=== PATIENT | male | born 1950 | race Two or more races ===

== ENCOUNTER 2021-04-30 17:21 | Emergency (ER) | payer MEDICARE, MEDICAID, SELFPAY ==
--- NOTE | ~2021-04-30 | XR_ITS ---
EXAMINATION: XR SHOULDER, RIGHT CLINICAL INFORMATION: Right shoulder pain COMPARISON: None TECHNIQUE: Three views of the right shoulder. FINDINGS: No acute fracture or dislocation. No suspicious bone lesion. There is degenerative spurring and marrow changes along the greater tuberosity and a prominent subacromial spur. XR/XR shoulder RT min 2V IMPRESSION: Degenerative changes of the greater tuberosity and large subacromial spur. These findings can be associated with rotator cuff pathology for which evaluation with MRI could be considered. No acute osseous abnormality.
[2021-04-30 17:27] VITALS: BP 112/67; PULSE 90; RESP 18; TEMP 36.7; O2SAT 95; BMI 32.3
--- NOTE | 2021-04-30 18:39 | ED.EXTPRO ---
HPI - Extremity Problem General Chief complaint: Extremity Injury, Upper Stated complaint: arm pain Time Seen by Provider: 04/30/21 18:39 History of Present Illness HPI Narrative: Patient complains of right shoulder plain for 2 months with no injury radiating to fingertips worse with movement, no weakness no loss of sensation Related Data Home Medications Medication Instructions Recorded Confirmed Unobtainable 05/12/21 05/12/21 Allergies Allergy/AdvReac Type Severity Reaction Status Date / Time Iodinated Contrast Media Allergy Unknown UNKNOWN Verified 05/12/21 08:51 [IV Dye, Iodine Containing] Review of Systems Review of Systems: positive for right shoulder pain radiating to finger tips Negatives are no fever no chills no headache no neck pain no chest pain no shortness of breath no weakness no numbness no skin rash, no other joint pains Yes all other systems are reviewed and are negative [facility], LAT[facility] Past Medical History Source: nursing notes reviewed Medical History (Updated 05/12/21 @ 09:26 by Venita Kraft PA-C) Colostomy care Diverticulitis HTN (hypertension) Iliac artery aneurysm Pre-diabetes Surgical History History of colostomy reversal Physical Exam Vital Signs: Vital Signs: Last Vital Signs Temp 98.0 F 04/30/21 17:27 Pulse 90 04/30/21 17:27 Resp 18 04/30/21 17:27 BP 112/67 04/30/21 17:27 Pulse Ox 95 04/30/21 17:27 Body Mass Index 32.3 general appearance no acute distress Head is normocephalic atraumatic Neck is supple Chest is clear to auscultation no chest wall tenderness, no neck tenderness no back tenderness, back is full range of motion Right shoulder exam there is diffuse tenderness both anterior and lateral, range of motion is limited by discomfort there is no redness or warmth to the joint no obvious effusion 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 strength in the right hand is 5/5 and symmetrical with the left and sensation is intact and symmetrical, skin was normal Course Course Course Narrative: x-ray of the right shoulder showed some arthritic changes Patient is strongly advised to follow with orthopedics as steroid injection may be helpful and he may need further evaluation or imaging and patient is discharged Discharge Plan Discharge Clinical Impression: Arthralgia of right shoulder region Patient Disposition: Home, Self-Care Additional Instructions: X-ray showed some arthritic changes Follow with orthopedist for possible steroid shot Return any time any worse condition or any concerns Referrals: Eitan Ontiveros MD [Physician] - 2 days (Right shoulder arthralgia for many weeks) Interventions: ED Discharge Assessment Last Done: 04/30/21 19:34 Discharge Date/Time: 04/30/21 19:37
== END 2021-04-30 19:37 | disposition home or self-care (01) ==
PROVIDERS: Emergency Provider Emergency Medicine; PCP Internal Medicine
DX: M25.511 Pain in right shoulder (principal); I10 Essential (primary) hypertension
CPT/HCPCS: 73030; 99283

== ENCOUNTER → 2021-05-12 08:38 | Outpatient (BNVA) | payer MEDICARE, MEDICAID, SELFPAY | PROVIDERS: Visit Provider Physician Assistant | DX: M19.011 Primary osteoarthritis, right shoulder (principal); M67.919 Unspecified disorder of synovium and tendon, unspecified shoulder | CPT/HCPCS: 20610; 99202; J1020 ==

== ENCOUNTER 2021-07-05 10:00 | Outpatient (RCR) | payer MEDICARE, MEDICAID, SELFPAY ==
--- NOTE | 2021-06-30 16:34 | MHC.PT.EP ---
[facility] [place] Office [place] Office [place] Office [address]um [address] [phone] F: [phone] F: [phone] F: [phone] F: [phone] Physical Therapy Plan of Care Date of Evaluation: Date of Surgery: NA Diagnosis: OA R SHOULDER Assessment: Pt IS 71 YO RHD M REFERRED TO PT FROM ORTHO ([facility]) WITH R SHLDER OA (SUBACROMIAL SPUR ON XRAY). Pt WITH HX R BICEP TEAR. PRESENTS WITH POOR POSTURE, LIMITED SHLDER ROM AND STRENGTH ON R. SHOULD BENEFIT FROM PT TO ADDRESS THESE ISSUES Frequency and Duration: The patient will be seen 2X/WK X 6 WKS Short Term Goals: 1. 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 INCREASED R SHLDER FLEX TO 130, ABD TO 120, ER TO 75 3. DECREASED R SHLDER/UPPER ARM PAIN AT LEAST 50% WITH ADLS Treatment Plan: Modalities to reduce pain, spasms and effusion. Manual therapy to restore motion and function. Therapeutic exercise to improve strength and flexibility. Neuromuscular re-education for posture and balance. Therapeutic activities to return to functional activities of daily living. Electronically signed by: LAKESHA HORN PT Please sign and return to therapist. Thank you for your referral.
--- NOTE | 2021-09-15 10:21 | MHC.PT.DC ---
[facility] [place] Office [place] Office [place] Office [address] Lisa Gastelum [address] [phone] F: [phone] F: [phone] F: [phone] F: [phone] Physical Therapy Discharge Report Diagnosis: RIGHT SHOULDER OA Date of Surgery: NA Date of Evaluation: 06/30/21 Date of Discharge: 07/14/21 Treatments to Date: 2 Cancellations to Date: 1 No Shows to Date: 2 Discharge Status: Patient Elected to Stop Recommend MD Follow-up Discharge Summary: Pt SEEN FOR INIT EVAL AND 1 VISIT, THEN NO SHOW X 2 THEN CANCELLED ON 07/14/21 WITH SELF DC AND FEELING BETTER (PER TECHNOLOGY EDUCATION TEACHER NOTE). AT INIT EVAL PER ASSESSMENT:Pt IS 71 YO RHD M REFERRED TO PT FROM ORTHO ([facility]) WITH R SHLDER OA (SUBACROMIAL SPUR ON XRAY). Pt WITH HX R BICEP TEAR. PRESENTS WITH POOR POSTURE, LIMITED SHLDER ROM AND STRENGTH ON R. SHOULD BENEFIT FROM PT TO ADDRESS THESE ISSUES [ End ] Electronically signed by: LAKESHA HORN PT Please sign and return to therapist. Thank you for your referral.
== END 2021-09-15 10:22 | disposition home or self-care (01) ==
LOC: HO.PT 10:00
PROVIDERS: Visit Provider Physician Assistant
DX: M19.011 Primary osteoarthritis, right shoulder (principal)
CPT/HCPCS: 97110; 97162; 97530

== ENCOUNTER 2022-01-29 20:10 | Emergency (ER) | payer MEDICARE, MEDICAID, SELFPAY ==
--- NOTE | ~2022-01-29 | CT_ITS ---
EXAMINATION: CT ABDOMEN AND PELVIS WITHOUT CONTRAST CLINICAL INFORMATION: Right-sided abdominal pain and chills. COMPARISON: CT chest and abdomen 08/25/2018 TECHNIQUE: Multidetector volumetric imaging was performed from the superior aspect of the liver through the pubic symphysis. Sagittal and coronal reformatted images were obtained on the technologist's workstation. This CT examination was performed using dose optimization techniques as appropriate, variously including the following: *Automated exposure control *Adjustment of mA and/or kV according to patient size (this includes techniques or standardized protocols for targeted exams where dose is matched to indication/reason for exam; i.e. extremities or head) *Use of iterative reconstruction technique DLP: 568 mGy-cm FINDINGS: Visualized lung bases demonstrate minimal dependent atelectasis. The liver is normal in size and attenuation but demonstrates a subtle nodular contour, nonspecific. Gallstones are noted within a relatively decompressed gallbladder. The pancreas, spleen and adrenal glands are unremarkable. Symmetrically sized kidneys. Stable 3 mm nonobstructing calculus of the right kidney. No left-sided renal calculi. No hydronephrosis of either kidney. Normal caliber loops of small and large bowel. Anastomotic suture line within the distal sigmoid colon. Colonic diverticulosis without CT evidence to suggest active diverticulitis. Suspected surgical changes of the right ventral abdominal wall are again noted. A tiny recurrent Jauregui's hernia is noted along the lateral right abdominal wall which contains a knuckle of cecum. Normal caliber abdominal aorta which demonstrates mild to moderate atherosclerotic disease. Left external iliac stent noted but inaccurately evaluated given lack of IV contrast. No retroperitoneal lymphadenopathy. The bladder is relatively decompressed and therefore not accurately evaluated, however, no gross bladder abnormality is identified. No gross free pelvic fluid. No inguinal lymphadenopathy. Moderate to severe degenerative changes of the spine. CT/CT abdomen pelvis wo con IMPRESSION: -Colonic diverticulosis without CT evidence to suggest active diverticulitis. -Cholelithiasis. -Suspected postsurgical changes of the right ventral abdominal wall with unchanged tiny Jauregui's hernia. -Subtle nodular contour of the liver. Underlying liver disease is suspected. Correlation with liver enzymes recommended. -Stable 3 mm nonobstructing right renal calculus. Fleischner guidelines were followed.
[2022-01-29 20:20] VITALS: BP 138/85; PULSE 91; RESP 18; TEMP 37; O2SAT 100; BMI 32.3
[2022-01-29 21:02] VITALS: RESP 17
[2022-01-29 21:02] LABS: MANUAL DIFF FLAG NO
[2022-01-29] MEDS: ondansetron HCL 4 MG/2 ML VIAL IVPUSH (21:02)
[2022-01-29] MEDS: Morphine Sulfate 4 MG/ML CARTRIDGE IVPUSH (21:02)
[2022-01-29 21:05] LABS: Basophils Absolute Auto 0.1 X10*3/uL (0.0-0.2); Basophils Percent Auto 0.8 % (0-2); Eosinophils Absolute Auto 0.2 X10*3/uL (0.0-0.4); Eosinophils Percent Auto 3.6 % (0-4); Hematocrit 39.7 % (42.0-52.0); Hemoglobin 13.1 g/dl (14.0-18.0); Imm Gran Abs Auto 0.01 X10*3/uL (0.00-0.03); Imm Gran Pct Auto 0.2 % (0.0-0.4); Lymphocytes Absolute Auto 1.7 X10*3/uL (1.2-4.9); Mean Corpuscular Hemoglobin 31.3 pg (27.0-33.0); Mean Corpuscular Volume 94.7 fL (80.0-98.0); Mean Platelet Volume 10.5 fL (9.4-12.4); Monocytes Absolute Auto 0.6 X10*3/uL (0.1-1.2); Monocytes Percent Auto 9.7 % (2-11); Neutrophils Absolute Auto 3.6 x10*3/uL (2.0-8.3); Neutrophils Percent Auto 57.7 % (45-73); Red Blood Count 4.19 X10*6/uL (4.60-5.80); Red Cell Distribution Width 15.3 % (11.0-16.0); White Blood Count 6.2 X10*3/uL (4.8-10.8)
[2022-01-29 21:17] LABS: INTERNATIONAL NORM RATIO 1.2 (0.9-1.1); Prothrombin Time 13.4 SEC (9.9-13.0)
[2022-01-29 21:18] LABS: Alanine Aminotransferase 32 U/L (0-40); Albumin Level 3.7 g/dL (3.5-5.0); Alkaline Phosphatase 251 U/L (39-117); Anion Gap 15 (12-20); Aspartate Amino Transferase 78 U/L (5-37); Bilirubin Direct 0.3 mg/dL (0.0-0.5); Bilirubin Total 0.9 mg/dL (0.0-1.0); Blood Urea Nitrogen 12 mg/dL (9-16); Carbon Dioxide 22 mmol/L (22-29); Chloride 104 mmol/L (96-108); Creatinine Clr Calc Pharmacy 69.3; Estimated Glomerular Filt Rate > 60; Glucose Random 164 mg/dL (60-115); Magnesium 1.9 mg/dL (1.6-2.6); Potassium 4.5 mmol/L (3.3-5.1); Sodium 136 mmol/L (135-145)
[2022-01-29 21:24] LABS: COVID-19 Test Negative (Negative); IDNOW Serial# 55D5AD1C
[2022-01-29 21:28] LABS: Platelet Count 89 X10*3/uL (160-400)
--- NOTE | 2022-01-29 22:39 | ED_ITS ---
HPI - Abdominal Pain General Chief Complaint: Extremity Problem Stated Complaint: hip pain Time Seen by Provider: 01/29/22 20:17 Source: patient and family Mode of arrival: ambulatory Limitations: language barrier ( Panamanian-speaking) History of Present Illness HPI narrative: 71-year-old male with a significant past medical history of hypertension, hypercholesterolemia, PVD, GERD, history of diverticulitis requiring resection with temporary colostomy status post with ileostomy status post reversal of the ileostomy, choledocholithiasis, alcohol abuse who is a everyday smoker presenting to the ED with his daughter at bedside with complaints of sudden onset of right periumbilical abdominal pain that occurred prior to arrival. He denies any other symptoms related to this such as fevers, chills, dizziness, he adaches, neck pain/ stiffness, trouble swallowing or breathing, chest pain or shortness of breath, dyspnea on exertion, orthopnea, palpitations, paresthesias, radiation of the abdominal pain, back pain, nausea/ vomiting / diarrhea, constipation, black or bloody stools, weakness, focal weakness, dysuria, hematuria, abnormal penile discharge, recent travel or sick contacts or any other symptoms complaints or concerns at this time. MD elicited complaint: abdominal pain Pertinent past history: other ( see above) Onset (ago): hour(s) ( prior to arrival) Pain Consistency: constant Location: periumbilical ( right-sided) Severity: severe Pain scale (0-10): 10 Quality: aching Radiation: none Migration to: no migration Exacerbating factors: nothing Relieving factors: other ( palpation of the site) Associated symptoms: denies other symptoms Related Data Home Medications Medication Instructions Recorded Confirmed Unobtainable 05/12/21 05/12/21 Allergies Allergy/AdvReac Type Severity Reaction Status Date / Time Iodinated Contrast Media Allergy Unknown UNKNOWN Verified 05/12/21 08:51 [IV Dye, Iodine Containing] Review of Systems Review of Systems Constitutional : No Fever, No Chills, No Night Sweats, No Fatigue, No Malaise Cardiovascular : No Chest Pain, No SOB Respiratory : No Cough, No Sputum, No Wheezing, No Dyspnea Gastrointestinal : No Nausea, No Vomiting, No Diarrhea, + abdominal Pain, No Hematochezia, No Melena Genitourinary : No irregular bleeding, No Dysuria, No Urinary Frequency, No Hematuria,No Urinary Incontinence, No Urgency, No Flank Pain Musculoskeletal : No joint pain, No Myalgias, No Joint Swelling Skin : No Skin Lesions, No rash Neuro : No Weakness, No Numbness, No Paresthesias, No Loss of Consciousness, No Dizziness, No Headache Heme/Lymph: No Lymphadenopathy Endocrine : No Temperature Intolerance Yes all other systems are reviewed and are negative [facility] Past Medical History Attestation statement: The following information was validated with the patient. Medical History Colostomy care Diverticulitis HTN (hypertension) Iliac artery aneurysm Pre-diabetes Surgical History History of colostomy reversal Social History Social History Advance Directives: No Advance Directives Information Provided: No Physical Exam ED Vital Signs: Vital Signs - 24 hr 01/29/22 20:20 01/29/22 21:02 Temperature 98.6 F Pulse Rate 91 Respiratory Rate 18 17 Blood Pressure 138/85 Pulse Oximetry 100 BMI result Body Mass Index 32.3 Vital signs have been reviewed and all within normal limits Appearance: Alert. Oriented X3. No acute distress. Head: Normal external exam. Normocephalic. Eyes: PERRLA. EOMI. Conjunctiva and sclera normal. Eyelids normal. ENT: Pharynx normal. Uvula midline. Moist mucous membranes. No trismus noted. No drooling noted. No muffled voice noted. Neck: Normal inspection. Neck supple. FROM. No adenopathy. No meningeal signs. CVS: Normal heart rate and rhythm. Heart sound normal. No murmurs noted. Pulses normal throughout. Respiratory: No respiratory distress. Painless inspiration. Breath sounds normal. No wheezes/rales/rhonchi noted. Chest nontender. No accessory muscle usage noted or decreased air movement noted. Abdomen: Soft and moderate tenderness to palpation to the right melia umbilical area right near the patient's old suture lines /surgical lines lines.. Nondistended. No guarding. No rigidity. Bowel sounds normal in all 4 quadrants. No distention noted. No organomegaly noted. No visible injury noted. No rebou nd tenderness. Negative Rovsing sign. Negative obturator's sign. Negative psoas sign. Negative Aguilera sign. Back: No CVA tenderness. Full range of motion noted. Skin: Skin warm and dry. Normal skin color. Normal skin turgor. No rashes/lesions/lacerations noted. Extremities: Extremities exhibit normal range of motion. Extremities nontender. Neuro: Oriented X 3. No motor deficit. No sensory deficit. Reflexes normal. Normal steady gait. CN's II-XII intact bilaterally? Course Course Course Narrative: 71-year-old male with a significant past medical history of hypertension, hypercholesterolemia, PVD, GERD, history of diverticulitis requiring resection with temporary colostomy status post with ileostomy status post reversal of the ileostomy, choledocholithiasis, alcohol abuse who is a everyday smoker presenting to the ED with his daughter at bedside with complaints of sudden on set of right periumbilical abdominal pain that occurred prior to arrival. Labs obtained and patient with mild baseline anemia. Random glucose 164. AST 78. Alkaline phosphate 251. Total protein 9.0. Otherwise all other labs are within normal limits. Patient negative for COVID. CT scan abdomen and pelvis Without contrast due to the patient being severely allergic to IV contrast revealed chronic changes no acute processes such as colonic diverticulosis without evidence of acute diverticulitis / coli lithiasis /right ventricle abdominal wall hernia which was unchanged and other chronic changes. Therefore I discussed this with the patient his daughter at bedside and explained that m ost likely this is related to the patient's hernia we do not believe this is acute cholecystitis as his labs are pretty much within normal limits and he does not have an elevated white blood cell count. The pain does underline the patient's old suture / surgical sites therefore this is most likely related to the patient's hernia. This does not appear incarcerated. Patient reports he is on a pain contract therefore he does not need any additional pain medications. I instructed him to return if any new or worsening symptoms and to follow up with his oyster culturist. Patient and daughter at bedside understand and agree this plan. MDM - Abdominal Pain Medical Records Attestation: I reviewed the patient's medical records. Lab Data Attestation: I reviewed the patient's lab results. Result diagrams: 01/29/22 20:55 01/29/22 20:55 Labs: Lab Results 01/29/22 01/29/22 01/29/22 Range/Units 20:55 20:55 20:55 WBC 6.2 (4.8-10.8) X10*3/uL RBC 4.19 L (4.60-5.80) X10*6/uL Hgb 13.1 L (14.0-18.0) g/dl Hct 39.7 L (42.0-52.0) % MCV 94.7 (80.0-98.0) fL MCH 31.3 (27.0-33.0) pg MCHC 33.0 (31.0-36.0) g/dl RDW 15.3 (11.0-16.0) % Plt Count 89 L (160-400) X10*3/uL MPV 10.5 (9.4-12.4) fL Immature Gran % (Auto) 0.2 (0.0-0.4) % Neut % (Auto) 57.7 (45-73) % Lymph % (Auto) 28.0 (20-40) % Winston % (Auto) 9.7 (2-11) % Eos % (Auto) 3.6 (0-4) % Baso % (Auto) 0.8 (0-2) % Lymph # (Auto) 1.7 (1.2-4.9) X10*3/uL Winston # (Auto) 0.6 (0.1-1.2) X10*3/uL Eos # (Auto) 0.2 (0.0-0.4) X10*3/uL Baso # (Auto) 0.1 (0.0-0.2) X10*3/uL Abs Immat Gran (auto) 0.01 (0.00-0.03) X10*3/uL Absolute Neuts (auto) 3.6 (2.0-8.3) x10*3/uL Absolute Nucleated RBC 0.000 (0.0-0.012) X10*3/uL Nucleated RBC % (auto) 0.0 (0.0-0.2) /100WBC PT (9.9-13.0) SEC INR (0.9-1.1) Sodium 136 (135-145) mmol/L Potassium 4.5 (3.3-5.1) mmol/L Chloride 104 (96-108) mmol/L Carbon Dioxide 22 (22-29) mmol/L Anion Gap 15 (12-20) BUN 12 (9-16) mg/dL Creatinine 1.06 (0.5-1.4) mg/dL Estim Creat Clear Calc 69.3 Estimated GFR > 60 Random Glucose 164 H (60-115) mg/dL Calcium 10.0 (8.4-10.2) mg/dL Magnesium (1.6-2.6) mg/dL Total Bilirubin 0.9 (0.0-1.0) mg/dL Direct Bilirubin 0.3 (0.0-0.5) mg/dL AST 78 H (5-37) U/L ALT 32 (0-40) U/L Alkaline Phosphatase 251 H (39-117) U/L Total Protein 9.0 H (6.5-8.0) g/dL Albumin 3.7 (3.5-5.0) g/dL COVID-19 ([facility]) Negative (Negative) COVID-19 Clin Com See Note 01/29/22 01/29/22 Range/Units 20:55 20:55 WBC (4.8-10.8) X10*3/uL RBC (4.60-5.80) X10*6/uL Hgb (14.0-18.0) g/dl Hct (42.0-52.0) % MCV (80.0-98.0) fL MCH (27.0-33.0) pg MCHC (31.0-36.0) g/dl RDW (11.0-16.0) % Plt Count (160-400) X10*3/uL MPV (9.4-12.4) fL Immature Gran % (Auto) (0.0-0.4) % Neut % (Auto) (45-73) % Lymph % (Auto) (20-40) % Winston % (Auto) (2-11) % Eos % (Auto) (0-4) % Baso % (Auto) (0-2) % Lymph # (Auto) (1.2-4.9) X10*3/uL Winston # (Auto) (0.1-1.2) X10*3/uL Eos # (Auto) (0.0-0.4) X10*3/uL Baso # (Auto) (0.0-0.2) X10*3/uL Abs Immat Gran (auto) (0.00-0.03) X10*3/uL Absolute Neuts (auto) (2.0-8.3) x10*3/uL Absolute Nucleated RBC (0.0-0.012) X10*3/uL Nucleated RBC % (auto) (0.0-0.2) /100WBC PT 13.4 H (9.9-13.0) SEC INR 1.2 H (0.9-1.1) Sodium (135-145) mmol/L Potassium (3.3-5.1) mmol/L Chloride (96-108) mmol/L Carbon Dioxide (22-29) mmol/L Anion Gap (12-20) BUN (9-16) mg/dL Creatinine (0.5-1.4) mg/dL Estim Creat Clear Calc Estimated GFR Random Glucose (60-115) mg/dL Calcium (8.4-10.2) mg/dL Magnesium 1.9 (1.6-2.6) mg/dL Total Bilirubin (0.0-1.0) mg/dL Direct Bilirubin (0.0-0.5) mg/dL AST (5-37) U/L ALT (0-40) U/L Alkaline Phosphatase (39-117) U/L Total Protein (6.5-8.0) g/dL Albumin (3.5-5.0) g/dL COVID-19 ([facility]) (Negative) COVID-19 Clin Com Imaging Data CT scan abdomen pelvis without IV contrast: Attestation: I personally reviewed and interpreted this imaging study as follows: Radiologist's impression: FINDINGS: Visualized lung bases demonstrate minimal dependent atelectasis. The liver is normal in size and attenuation but demonstrates a subtle nodular contour, nonspecific. Gallstones are noted within a relatively decompressed gallbladder. The pancreas, spleen and adrenal glands are unremarkable. Symmetrically sized kidneys. Stable 3 mm nonobstructing calculus of the right kidney. No left-sided renal calculi. No hydronephrosis of either kidney. Normal caliber loops of small and large bowel. Anastomotic suture line within the distal sigmoid colon. Colonic diverticulosis without CT evidence to suggest active diverticulitis. Suspected surgical changes of the right ventral abdominal wall are again noted. A tiny recurrent Jauregui's? hernia is noted along the lateral right abdominal wall which contains a knuckle of cecum. Normal caliber abdominal aorta which demonstrates mild to moderate atherosclerotic disease. Left external iliac stent noted but inaccurately evaluated given lack of IV contrast. No retroperitoneal lymphadenopathy. The bladder is relatively decompressed and therefore not accurately evaluated, however, no gross bladder abnormality is identified. No gross free pelvic fluid. No inguinal lymphadenopathy. Moderate to severe degenerative changes of the spine. CT/CT abdomen pelvis wo con IMPRESSION: -Colonic diverticulosis without CT evidence to suggest active diverticulitis. -Cholelithiasis. -Suspected postsurgical changes of the right ventral abdominal wall with unchanged tiny Jauregui's hernia. -Subtle nodular contour of the liver. Underlying liver disease is suspected. Correlation with liver enzymes recommended. -Stable 3 mm nonobstructing right renal calculus. ? Fleischner guidelines were followed. Critical Care Time Critical Care Time Critical Care Time: Yes Total Critical Care Time: 60 Attestation: I personally attest to this time spent taking care of the patient Discharge Plan Discharge Clinical Impression: Abdominal hernia, Cholelithiasis, Elevated LFTs Patient Disposition: Home, Self-Care Instructions: Gallstones (ED), Ventral Hernia (ED) Referrals: Vince Cosme MD [Primary Care Provider] - 2 days Interventions: ED Discharge Assessment Last Done: 01/29/22 22:46 Discharge Date/Time: 01/29/22 22:47 Print Language: Panamanian
== END 2022-01-29 22:47 | disposition home or self-care (01) ==
PROVIDERS: Physician Assistant Medical; Emergency Provider Internal Medicine; PCP Internal Medicine
DX: K46.9 Unspecified abdominal hernia without obstruction or gangrene (principal); K80.20 Calculus of gallbladder without cholecystitis without obstruction; R79.89 Other specified abnormal findings of blood chemistry; I73.9 Peripheral vascular disease, unspecified; I10 Essential (primary) hypertension; R73.03 Prediabetes; Z20.822 Contact with and (suspected) exposure to COVID-19
CPT/HCPCS: 36415; 74176; 80053; 82248; 83735; 85025; 85610; 87635; 96374; 96375; 99284; 99291; J2270; J2405

== ENCOUNTER 2022-04-06 12:37 | Outpatient (REF) | payer MEDICARE, MEDICAID, SELFPAY ==
[2022-04-06 15:29] LABS: Lipase 45 U/L (8-78)
[2022-04-06 15:49] LABS: Ferritin 62 ng/mL (20-250)
[2022-04-06 16:22] LABS: Folate 10.5 ng/mL (> or = 4.0); Vitamin B12 175 pg/mL (200-900)
[2022-04-10 08:09] LABS: HBS Num1 211.82 mIU/mL (0-7.99); HBc Num1 7.79 S/CO (0.00-0.79); HIV AB/AG Nonreactive (Nonreactive); HIV Num 1 0.07 S/CO (0.00-0.99); Hepatitis B Surface Antigen Negative (Negative); ~HepC Num1 0.16 S/CO (0.00-0.79); ~Hepatitis B Surface Antibody REACTIVE (Nonreactive); ~Hepatitis C Antibody Nonreactive (Nonreactive)
[2022-04-10 10:37] LABS: HBc Num2 8.19 S/CO
[2022-04-10 10:38] LABS: HBc Num3 7.92 S/CO; Hepatitis B Core Antibody Reactive (Nonreactive)
[2022-04-10 11:47] LABS: Alpha Fetoprotein 6.1 ng/mL (<6.1)
[2022-04-10 21:23] LABS: Ceruloplasmin 26 mg/dL (18-36)
[2022-04-11 09:27] LABS: Hepatitis A Antibody IgM 0.15 Index (0-0.79); ~Hepatitis A Antibody IgM Nonreactive (Nonreactive)
[2022-04-11 12:52] LABS: Mitochondrial Antibodies NEGATIVE (NEGATIVE)
[2022-04-12 12:32] LABS: Vitamin D 25-OH, D2 <4 ng/mL; Vitamin D 25-OH, D3 21 ng/mL; Vitamin D 25-OH, Total 21 ng/mL (30-100)
[2022-04-12 14:36] LABS: Smooth Muscle Antibody 20 U (<20)
[2022-04-16 02:27] LABS: FIB-ALT 11 U/L (9-46); FIB-Alpha-2-Macroglobulin 317 mg/dL (106-279); FIB-Apolipoprotein A1 168 mg/dL (94-176); FIB-GGT 208 U/L (3-70); FIB-Haptoglobin 60 mg/dL (43-212); FIB-Total Bilirubin 0.9 mg/dL (0.2-1.2); Liver Fibrosis Score 0.84; Liver Fibrosis Stage F4; Nec Inflam Act Grade A0; Nec Inflam Act Score 0.07
== END 2022-04-06 12:38 | disposition home or self-care (01) ==
LOC: HO.LAB 12:37
PROVIDERS: PCP Internal Medicine; Referring Provider Internal Medicine; Visit Provider Nurse Practitioner Family
DX: K21.9 Gastro-esophageal reflux disease without esophagitis (principal); K58.1 Irritable bowel syndrome with constipation; K80.50 Calculus of bile duct without cholangitis or cholecystitis without obstruction; K46.9 Unspecified abdominal hernia without obstruction or gangrene; K59.04 Chronic idiopathic constipation; E78.5 Hyperlipidemia, unspecified; E55.9 Vitamin D deficiency, unspecified; I73.9 Peripheral vascular disease, unspecified; R94.5 Abnormal results of liver function studies; I10 Essential (primary) hypertension; R74.01 Elevation of levels of liver transaminase levels; R74.8 Abnormal levels of other serum enzymes; R10.9 Unspecified abdominal pain; R79.89 Other specified abnormal findings of blood chemistry; Z72.89 Other problems related to lifestyle; Z12.11 Encounter for screening for malignant neoplasm of colon; F17.210 Nicotine dependence, cigarettes, uncomplicated
CPT/HCPCS: 36415; 81596; 82105; 82306; 82390; 82607; 82728; 82746; 83690; 84443; 86015; 86140; 86255; 86256; 86704; 86706; 86709; 86803; 87340; 87389; 99202; 99212

== ENCOUNTER 2022-04-10 11:03 | Outpatient (REF) | payer MEDICARE, MEDICAID, SELFPAY ==
[2022-04-16 16:11] LABS: Pancreatic Elastase-1 >500 mcg/g
== END 2022-04-10 11:04 | disposition home or self-care (01) ==
LOC: HO.LNP 11:03
PROVIDERS: Visit Provider Nurse Practitioner Family
DX: R10.9 Unspecified abdominal pain (principal)
CPT/HCPCS: 82656

== ENCOUNTER → 2022-04-30 10:51 | Outpatient (BNVA) | payer MEDICARE, MEDICAID, SELFPAY | PROVIDERS: PCP Internal Medicine; Visit Provider Surgery | DX: R10.9 Unspecified abdominal pain (principal); K80.50 Calculus of bile duct without cholangitis or cholecystitis without obstruction; M19.90 Unspecified osteoarthritis, unspecified site; K21.9 Gastro-esophageal reflux disease without esophagitis; E78.5 Hyperlipidemia, unspecified; E11.9 Type 2 diabetes mellitus without complications; I73.9 Peripheral vascular disease, unspecified; I72.3 Aneurysm of iliac artery; I10 Essential (primary) hypertension; D69.6 Thrombocytopenia, unspecified; F10.10 Alcohol abuse, uncomplicated; F17.210 Nicotine dependence, cigarettes, uncomplicated | CPT/HCPCS: 99202 ==

== ENCOUNTER 2022-05-11 07:24 | Outpatient (REF) | payer MEDICARE, MEDICAID, SELFPAY ==
--- NOTE | ~2022-05-11 | US_ITS ---
EXAMINATION: US ABDOMEN COMPLETE CLINICAL INFORMATION: Unspecified abdominal pain. COMPARISON: CT abdomen and pelvis 01/29/2022. MRI abdomen 08/22/2018. Limited abdominal ultrasound 08/22/2018. Renal ultrasound 06/18/2009. TECHNIQUE: Real-time imaging of the abdominal viscera. Technically difficult study secondary to body habitus and respirations. FINDINGS: PANCREAS: Not well visualized due to bowel gas ABDOMINAL AORTA: Not well visualized due to bowel gas. INFERIOR VENA CAVA: Visualized portions are normal. LIVER: The liver appears cirrhotic with heterogeneous echotexture and irregular lobulated borders. No focal liver lesion or biliary duct dilatation. The main portal vein is patent with appropriate hepatopedal flow. GALLBLADDER: Gallbladder is not well seen. The gallbladder appears contracted gallbladder with gallstones. COMMON BILE DUCT: Normal in caliber measuring 0.2 cm in diameter. RIGHT KIDNEY: Normal. No hydronephrosis. No renal calculi or focal parenchymal lesions. The kidney measures 13.2 cm in maximum dimension. LEFT KIDNEY: Normal. No hydronephrosis. No renal calculi or focal parenchymal lesions. The kidney measures 12.8 cm in maximum dimension. SPLEEN: Spleen is slightly enlarged. The spleen measures 13.4 cm in maximum dimension. FREE FLUID: None. US/US abdomen complete IMPRESSION: Cirrhotic appearing liver. Splenomegaly. Contracted gallbladder with gallstones. Limited visualization of the pancreas and aorta.
== END 2022-05-11 07:25 | disposition home or self-care (01) ==
LOC: HO.US 07:24
PROVIDERS: Visit Provider Nurse Practitioner Family
DX: R10.9 Unspecified abdominal pain (principal); N20.0 Calculus of kidney
CPT/HCPCS: 76700; 99202

== ENCOUNTER 2022-05-18 12:17 | Outpatient (REF) | payer MEDICARE, MEDICAID, SELFPAY ==
[2022-05-21 21:51] LABS: Transglutaminase Ab IgG <1.0 U/mL; Transglutaminase IgA <1.0 U/mL
== END 2022-05-18 12:18 | disposition home or self-care (01) ==
LOC: HO.LAB 12:17
PROVIDERS: PCP Internal Medicine; Visit Provider Nurse Practitioner Family
DX: R10.9 Unspecified abdominal pain (principal); K80.50 Calculus of bile duct without cholangitis or cholecystitis without obstruction
CPT/HCPCS: 36415; 86364; 99212

== ENCOUNTER → 2022-05-28 09:21 | Outpatient (BNVA) | payer MEDICARE, MEDICAID, SELFPAY | PROVIDERS: PCP Internal Medicine; Visit Provider Surgery | DX: R10.9 Unspecified abdominal pain (principal); D69.6 Thrombocytopenia, unspecified; E11.9 Type 2 diabetes mellitus without complications; I73.9 Peripheral vascular disease, unspecified; F10.10 Alcohol abuse, uncomplicated; F17.210 Nicotine dependence, cigarettes, uncomplicated | CPT/HCPCS: 99212 ==

== ENCOUNTER → 2022-05-30 10:26 | Outpatient (REF) | payer MEDICARE, MEDICAID, SELFPAY ==
--- NOTE | ~2022-05-30 | NM_ITS ---
EXAMINATION: NUCLEAR MEDICINE HEPATOBILIARY SCAN WITHOUT PHARMACY. CLINICAL INFORMATION: Calculus of bile duct without cholangitis COMPARISON: None TECHNIQUE: Following intravenous administration of 5 mCi of mebrofenin, imaging over the right upper quadrant was obtained up to 2 hours. Delayed images were obtained up to 4 hours. FINDINGS: There is normal hepatic uptake with prompt visualization of common bile duct by 17 minutes and small bowel by 18 minutes. The gallbladder is not visualized up to 4 hours. NM/NM hepatobiliary wo pharm IMPRESSION: Obstructed cystic duct up to 4 hours. Patent CBD. Normal hepatic uptake without any focal defects.
== END ==
LOC: HO.NUCMED 10:26
PROVIDERS: PCP Internal Medicine; Visit Provider Nurse Practitioner Family
DX: K80.50 Calculus of bile duct without cholangitis or cholecystitis without obstruction (principal)
CPT/HCPCS: 78226; A9537

== ENCOUNTER 2022-08-08 07:23 | Outpatient (REF) | payer MEDICARE, MEDICAID, SELFPAY ==
--- NOTE | ~2022-08-08 | MR_ITS ---
EXAMINATION: MR LUMBAR SPINE WITHOUT CONTRAST CLINICAL INFORMATION: 72-year-old with low back pain. Multilevel degenerative changes on previous x-rays. COMPARISON: 06/01/2019 x-rays. TECHNIQUE: MRI of the lumbar spine was obtained using routine sequences without contrast. FINDINGS: Coronal Alignment: Normal. Sagittal Alignment: Trace retrolisthesis at L3-L4 stable in appearance. Trace retrolisthesis at L2-L3 noted on current study which is a new finding. Otherwise lumbosacral alignment is unremarkable. Lumbosacral Junction: Normal. 5 auq-ptq-xpzdqpm lumbar-type vertebral bodies. Vertebral Bodies: Vertebral body heights are well maintained stable in appearance. Disc Spaces and Endplates: Mqmtoedr-zj-idwvvi intervertebral disc space height loss asymmetric to the left at L3-L4 with disc desiccation, Schmorl's nodes and spondylosis. Xmmgmqmm-bo-ltsejq intervertebral disc space height loss at L4-L5 and L5-S1 with disc desiccation, Schmorl's nodes and spondylosis. Nyuk-rj-fdzwmfit intervertebral disc space height loss at L2-L3 with Schmorl's nodes, disc desiccation and spondylosis. Disc desiccation and spondylosis at L1-L2 with minimal disc space height loss. Mild disc space height loss with disc desiccation, Schmorl's nodes and spondylosis at T11-T12 and spondylosis at T12-L1. Spinal Canal: No abnormal developmental findings. Bone Marrow: Minimal fatty proliferation in the filum terminale is noted. Conus Medullaris: Terminates at T12. Morphology and signal is normal. Intradural Nerve Roots: Within normal limits. L5-S1: Concentric disc bulging is noted with bilateral paravertebral/posterolateral disc osteophyte complex with prominent, bulky paravertebral spondylosis, right more than left. No significant thecal sac compromise. Mild facet arthropathy noted without significant canal stenosis. Rwkkhmvv-yb-wiakgk bilateral neural foraminal stenosis is noted with disc osteophyte complex contacting the extra foraminal L5 nerve roots bilaterally. L4-L5: Diffuse disc bulging is noted with bilateral paravertebral/posterolateral disc osteophyte complex right more than left. Slight flattening of the ventral dural sac is noted asymmetric to the right with mild ligamentum flavum thickening and mild facet arthrosis without significant central canal stenosis. Mild left and moderate right subarticular recess stenosis is noted without definite neural impingement. There is moderate right-sided and zeae-if-yrtyytle left-sided neural foraminal stenosis with right lateral disc osteophyte complex encroaching on the extraforaminal right L4 nerve root. L3-L4: Slight retrolisthesis with diffuse disc bulging and mild flattening of the ventral dural sac is noted with mild facet arthrosis without significant central canal stenosis. Slight narrowing of the left subarticular zone is noted without neural impingement. There is moderate left and mild right-sided neural foraminal stenosis with posterolateral disc osteophyte complex on the left abutting the extraforaminal left L3 nerve root. L2-L3: Trace retrolisthesis with mild diffuse disc bulging and lffk-kz-iwjsbekk flattening of the ventral dural sac with mild ligamentum flavum thickening and facet arthropathy. Slight narrowing of the subarticular zones noted bilaterally without central canal stenosis. Moderate right and mild left-sided neural foraminal stenosis is noted with posterolateral disc osteophyte complex on the right abutting the extraforaminal right L2 nerve root. L1-L2: Small left paramedian disc protrusion noted with mild narrowing of the left subarticular recess with slight encroachment on the traversing left L2 nerve root. Mild left-sided facet arthropathy noted. No significant central canal or neural foraminal stenosis. Small central extruded disc herniation with slight cephalad migration at T12-L1. Paraspinal/Retroperitoneal: Moderate generalized diffuse posterior paraspinal and psoas muscle volume loss. Otherwise the paravertebral soft tissues are unremarkable. There are mild atheromatous changes of the abdominal aorta. MR/MR lumbar spine wo con IMPRESSION: 1. Multilevel DDD and spondylosis throughout the visualized thoracolumbar spine as discussed above, with multilevel disc bulging, disc osteophyte complexes and facet arthropathy with no significant central spinal canal stenosis. There are mild degrees of encroachment on the left subarticular zone at L1-L2, bilaterally at L2-L3 and on the left at L3-L4 as detailed above. 2. Multilevel bilateral facet arthrosis, with multilevel bilateral neural foraminal stenosis, most apparent bilaterally at L5-S1 as detailed by level above. 3. Small central extruded disc herniation with slight cephalad migration at T12-L1, small left subarticular disc herniation at L1-L2 and multilevel lateral/posterolateral disc osteophyte complexes.
== END 2022-08-08 07:24 | disposition home or self-care (01) ==
LOC: HO.MRI 07:23
PROVIDERS: PCP Internal Medicine; Visit Provider Internal Medicine
DX: M54.50 Low back pain, unspecified (principal)
CPT/HCPCS: 72148

== ENCOUNTER 2022-08-31 12:19 | Outpatient (REF) | payer MEDICARE, MEDICAID, SELFPAY ==
[2022-08-31 13:48] LABS: Alanine Aminotransferase 22 U/L (0-40); Albumin Level 3.8 g/dL (3.5-5.0); Alkaline Phosphatase 153 U/L (39-117); Aspartate Amino Transferase 38 U/L (5-37); Bilirubin Direct 0.5 mg/dL (0.0-0.5); Bilirubin Total 1.2 mg/dL (0.0-1.0); Total Protein 8.1 g/dL (6.5-8.0)
[2022-09-04 13:36] LABS: Hepatitis B Viral DNA Qn - cp <1.00 NOT DETECTED Log IU/mL (NOT DETECTED); Hepatitis B Viral DNA Qn-IU/mL <10 NOT DETECTED IU/mL (NOT DETECTED)
== END 2022-08-31 12:20 | disposition home or self-care (01) ==
LOC: HO.LAB 12:19
PROVIDERS: PCP Internal Medicine; Visit Provider Nurse Practitioner Family
DX: R10.9 Unspecified abdominal pain (principal); K74.60 Unspecified cirrhosis of liver
CPT/HCPCS: 36415; 80076; 87517; 99212

== ENCOUNTER 2022-10-25 10:52 | Outpatient (REF) | payer MEDICARE, MEDICAID, SELFPAY ==
--- NOTE | ~2022-10-25 | US_ITS ---
EXAMINATION: US RETROPERITONEAL LIMITED (RENAL ONLY) CLINICAL INFORMATION: Calculus of kidney. COMPARISON: Ultrasound abdomen complete 05/11/2020. CT abdomen and pelvis 01/30/2020. MRI abdomen 08/22/2018. Limited abdominal ultrasound 08/22/2018. TECHNIQUE: Real-time imaging of the kidneys. FINDINGS: RIGHT KIDNEY: 13.5 x 5.8 x 5.6 cm (SAG x AP x TRV). The kidney is normal in size, contour, and echogenicity. Renal cortical thickness is normal. No calculi or focal parenchymal lesions. No hydronephrosis. LEFT KIDNEY: 13.4 x 5.0 x 4.8 cm (SAG x AP x TRV). The kidney is normal in size, contour, and echogenicity. Renal cortical thickness is normal. No calculi or focal parenchymal lesions. No hydronephrosis. US/US renal BI IMPRESSION: Unremarkable renal ultrasound.
== END 2022-10-25 10:53 | disposition home or self-care (01) ==
LOC: HO.US 10:52
DX: N20.0 Calculus of kidney (principal)
CPT/HCPCS: 76775

== ENCOUNTER → 2022-10-26 10:38 | Outpatient (BNVA) | payer MEDICARE, MEDICAID, SELFPAY | PROVIDERS: PCP Internal Medicine; Referring Provider Internal Medicine; Visit Provider Nurse Practitioner Family | DX: K21.9 Gastro-esophageal reflux disease without esophagitis (principal); R10.9 Unspecified abdominal pain; K70.30 Alcoholic cirrhosis of liver without ascites | CPT/HCPCS: 99212 ==

== ENCOUNTER 2022-12-07 13:19 | Outpatient (REF) | payer MEDICARE, MEDICAID, SELFPAY ==
[2022-12-07 17:42] LABS: Urine Cytology See Pathology rpt
== END 2022-12-07 13:20 | disposition home or self-care (01) ==
LOC: HO.LAB 13:19
PROVIDERS: PCP Internal Medicine; Visit Provider Nurse Practitioner Family
DX: N20.0 Calculus of kidney (principal); R31.29 Other microscopic hematuria; Z79.899 Other long term (current) drug therapy
CPT/HCPCS: 88112; 99212

== ENCOUNTER 2022-12-19 09:39 | Emergency (ER) | payer MEDICARE, MEDICAID, SELFPAY ==
--- NOTE | ~2022-12-19 | XR_ITS ---
EXAMINATION: XR CHEST CLINICAL INFORMATION: Weakness. COMPARISON: 09/04/2018 chest radiographs. TECHNIQUE: Frontal view of the chest was obtained. FINDINGS: Interval decrease in linear markings in the right upper lobe. The lungs are otherwise clear. The heart and mediastinal structures are unremarkable. XR/XR chest 1V IMPRESSION: Minimal residual linear atelectasis/scarring in the right upper lobe. No acute cardiopulmonary process.
--- NOTE | ~2022-12-19 | CT_ITS ---
EXAMINATION: CT ABDOMEN AND PELVIS WITHOUT CONTRAST CLINICAL INFORMATION: Lower abdominal pain COMPARISON: 01/29/2022 TECHNIQUE: Multidetector volumetric imaging was performed from the superior aspect of the liver through the pubic symphysis. Sagittal and coronal reformatted images were obtained on the technologist's workstation. This CT examination was performed using dose optimization techniques as appropriate, variously including the following: *Automated exposure control *Adjustment of mA and/or kV according to patient size (this includes techniques or standardized protocols for targeted exams where dose is matched to indication/reason for exam; i.e. extremities or head) *Use of iterative reconstruction technique DLP: 578 mGy-cm FINDINGS: LUNG BASES: The visualized lung bases are unremarkable. LIVER, GALLBLADDER, AND BILIARY TREE: Subtle nodular contour to the liver may reflect underlying cirrhosis. No change. No focal masses. No intrahepatic biliary dilatation. Gallstones noted within a decompressed gallbladder no change. PANCREAS: Unremarkable. SPLEEN: Prominent spleen no change. ADRENAL GLANDS: Unremarkable. KIDNEYS AND URETERS: 3 mm tiny stone mid right kidney no obstruction no change. No perinephric collection or suspicious mass in either kidney. BLADDER: Unremarkable. GASTROINTESTINAL TRACT: Anastomotic sutures in the sigmoid. No proximal obstruction. Moderate stool burden throughout the colon. 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 No free air. There does appear to be inflammatory change adjacent to the cecum and transverse colon extending to the anterior abdominal wall. This is likely postsurgical and is unchanged. Midline surgical scar noted. There is sigmoid diverticular disease but no diverticulitis. No change. Other postsurgical changes related to the transverse colon are stable. ABDOMINAL WALL: Induration in the ventral subcutaneous fat of the midline surgical scar, along the distal rectus sheath extending down towards the dome of the bladder is unchanged. Drainable collections are not seen. LYMPH NODES: Normal. VASCULAR: Aorta is ectatic and atherosclerotic but nonaneurysmal. No adjacent fluid collections. Left external iliac stent again noted creating a fair amount of streak artifact. PELVIC VISCERA: Unremarkable. OSSEOUS STRUCTURES: Advanced degenerative changes again observed in the lumbar spine. No change. CT/CT abdomen pelvis wo IV con IMPRESSION: No hydronephrosis or acute inflammatory process. There is colonic diverticulosis with and without diverticulitis. 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
--- NOTE | ~2022-12-19 | CT_ITS ---
EXAMINATION: CT HEAD WITHOUT CONTRAST CLINICAL INFORMATION: Right-sided weakness. COMPARISON: Head CT scan dated 06/16/2009. TECHNIQUE: Contiguous axial imaging was performed from the skull base to vertex without intravenous administration of contrast. Coronal and sagittal reformatted images were obtained. This CT examination was performed using dose optimization techniques as appropriate, variously including the following: *Automated exposure control *Adjustment of mA and/or kV according to patient size (this includes techniques or standardized protocols for targeted exams where dose is matched to indication/reason for exam; i.e. extremities or head) *Use of iterative reconstruction technique DLP: 643.06 mGy-cm FINDINGS: There is mild widening of the cortical sulci and associated ventriculomegaly. The lateral ventricles are symmetrical. The third and fourth ventricles are in their normal midline position. The basilar and prepontine cisterns are unremarkable. There is no acute intra or extracerebral abnormality. There is no mass effect or midline shift. Sections through the bony calvarium are unremarkable. The orbits are intact. Mild mucosal thickening is seen in the visualized paranasal sinuses. Hypoaeration of the mastoid air cells. Sigmoid nasal septal deviation without significant change. CT/CT head/brain wo IV con IMPRESSION: No acute intracranial pathology. Mild inflammatory changes in the paranasal sinuses.
[2022-12-19 09:41] VITALS: BP 141/83; PULSE 100; RESP 18; TEMP 36.8; O2SAT 98; BMI 31.1
--- NOTE | 2022-12-19 09:59 | ECG_ITS ---
Test Reason : STROKE RULE OUT Blood Pressure : / mmHG Vent. Rate : 089 BPM Atrial Rate : 089 BPM P-R Int : 184 ms QRS Dur : 096 ms QT Int : 370 ms P-R-T Axes : 031 -19 037 degrees QTc Int : 450 ms Normal sinus rhythm Minimal voltage criteria for LVH, may be normal variant ( R in aVL ) Borderline ECG When compared with ECG of 19-AUG-2018 01:29, Premature ventricular complexes are no longer Present Referred By: Mora Velasco Electronically Signed By:SAM HILL MD
--- NOTE | 2022-12-19 10:03 | ED_ITS ---
HPI - Neuro Symptoms/Deficit General Chief Complaint: Neuro Symptoms/Deficit Stated Complaint: sent by [facility]. poss stroke Time Seen by Provider: 12/19/22 09:48 Source: patient Mode of arrival: ambulatory History of Present Illness HPI Narrative: 72-year-old male with a past medical history of HLD, HTN, osteoarthritis, thrombocytopenia, diabetes, diverticulitis s/p colostomy and reversal, sent to ED from urgent care to rule out CVA. Patient/family reports 1 month of increasing weakness, greater on right side, with intermittent confusion, slurred speech, and off balance gait. Patient takes baby ASA. Reports intermittent numbness to RLE. Also reports left flank pain, worse with urination. Denies known injury, trauma/fall, headache, CP/SOB, nausea/vomiting/diarrhea Onset (ago): month(s) Related Data Home Medications Medication Instructions Recorded Confirmed blood sugar diagnostic (FreeStyle #10 ea 04/06/22 12/09/22 Lite Strips) lancets 28 gauge (FreeStyle #100 ea 04/06/22 12/09/22 Lancets) metformin 500 mg tablet,extended 500 mg PO DAILY 04/06/22 12/19/22 release 24 hr rosuvastatin 40 mg tablet 40 mg PO DAILY 04/06/22 12/19/22 cyanocobalamin (vitamin B-12) 1,000 mcg PO DAILY 12/07/22 12/19/22 1,000 mcg tablet aspirin 81 mg tablet,delayed 81 mg PO DAILY 12/19/22 12/19/22 release celecoxib 200 mg capsule 1 cap PO DAILY 12/19/22 12/19/22 oxycodone-acetaminophen 5 mg-325 1 tab PO Q8H PRN severe pain 12/19/22 12/19/22 mg tablet pantoprazole 40 mg tablet,delayed 40 mg PO DAILY@0630 12/19/22 12/19/22 release Previous Rx's Medication Instructions Recorded cholecalciferol (vitamin D3) 50 50 mcg PO DAILY #90 caps 05/18/22 mcg (2,000 unit) capsule docusate sodium 100 mg capsule 100 mg PO BEDTIME #90 caps 08/31/22 polyethylene glycol 3350 17 gram 17 g PO DAILY #100 ea 08/31/22 oral powder packet (Miralax) Allergies Allergy/AdvReac Type Severity Reaction Status Date / Time Iodinated Contrast Media Allergy Unknown UNKNOWN Verified 12/09/22 20:29 [IV Dye, Iodine Containing] Review of Systems Review of Systems: Constitutional: No Fever, No Chills, No Fatigue, No Malaise ENT/Mouth: No Ear Pain, No Nasal Congestion, No sore throat, No Rhinorrhea, No Swallowing Difficulty Eyes: No Eye Pain, No Swelling, No Redness, No Vision Changes Cardiovascular: No Chest Pain, No SOB, No Edema, No Palpitations Respiratory: No Cough, No Sputum, No Dyspnea Gastrointestinal: No Nausea, No Vomiting, No Diarrhea, No Constipation, No Abdominal pain Genitourinary: No Dysuria, No Hematuria, No Urinary Incontinence/retention, No Flank Pain Musculoskeletal: No joint pain, No Myalgias, No Joint Swelling Skin: No Skin Lesions, No rash Neuro: + Weakness, + Numbness, No Paresthesias, No Loss of Consciousness, No Dizziness, No Headache, +confusion, +slurred speech Yes all other systems are reviewed and are negative Constitutional: Constitutional: Reports as per HPI Neurologic: Denies Sensory deficit (Neuro) [facility] Past Medical History Attestation statement: The following information was validated with the patient. Medical History Diverticulitis Iliac artery aneurysm Pre-diabetes Renal calculi Surgical History History of colostomy reversal Social History Social History Household Members: Spouse Alcohol intake: current Alcohol intake frequency: 3 or more drinks per day Alcohol type: beer and hard liquor Patient Tobacco Use Status: Current everyday Tobacco user Tobacco use type: Cigarette Cigarettes Per Day: 10 Smoked in Last 30 Days: Yes Advance Directives: No Physical Exam Vital Signs: Vital Signs: Last Vital Signs Temp 98.2 F 12/19/22 09:41 Pulse 86 12/19/22 14:12 Resp 16 12/19/22 14:12 BP 128/82 12/19/22 14:12 Pulse Ox 98 12/19/22 14:12 O2 Del Method 12/19/22 14:12 BMI result Body Mass Index 31.1 Const: General: cooperative, healthy appearing, no acute distress, alert and awake Orientation/consciousness: patient oriented x3 Limitations: no limitations HEENT: Head: Yes normal to inspection and Yes atraumatic Ears: hearing grossly normal bilaterally General nose exam: Normal external nose present Face and sinus: Yes normal facial exam Throat: Yes posterior oropharynx normal, Yes tonsils normal, Yes uvula midline and No peritonsillar mass Eyes: General: appearance normal, both eyes and all related structures Pupils: Equal, round and reactive pupils present EOM: EOMs intact bilaterally Neck: Neck: Yes normal visual inspection and Yes no meningeal signs Resp: Effort & Inspection: normal respiratory effort and no respiratory distress Auscultation: clear to auscultation bilaterally, no crackles, no rales, no rhonchi and no wheezes Cardio: Rate: regular rate Heart sounds: S1 normal heart sound present and S2 normal heart sound present GI: Inspection: Yes scar (Multiple old surgical scars) Palpation (GI): Soft to palpation, Tenderness to palpation present (GI) in the LLQ; with no rebound tenderness, no guarding and not rigid : General: Yes no CVA tenderness Back/Spine/Pelvis: Back: no CVA tenderness Skin: Rashes: no rashes Wounds: no wounds Neuro: General: patient oriented x3, tone normal, moves all extremities, no meningeal signs and CN's II-XI intact bilaterally Cranial nerves: Yes Equal, round and reactive pupils present Cognition (Neuro): normal cognition Gait exam (Neuro): Staggering gait present (Mildly unsteady, rightward) Motor exam (neuro): Abnormal motor strength present (4/5 strength ) right lower extremity Sensory Exam: No Sensory deficit (Neuro) Coordination: ekopuu-xt-hrml test normal Romberg Test: Positive Extrem: General: Yes normal to inspection Course Course Course Narrative: -1219--no leukocytosis. H&H stable. Bilirubin at baseline. AST at baseline. Troponin 9.9 will obtain 3 hour repeat. XR chest 1V IMPRESSION: Minimal residual linear atelectasis/scarring in the right upper lobe. No acute cardiopulmonary process. CT head/brain wo IV con IMPRESSION: No acute intracranial pathology. Mild inflammatory changes in the paranasal sinuses. CT abdomen pelvis wo IV con IMPRESSION: No hydronephrosis or acute inflammatory process. There is colonic diverticulosis with and without diverticulitis. 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 > plan to admit for further management -1233--per hospitalist team patient does not meet inpatient criteria.. Will obtain Brain MRI for further eval and then rediscuss -1345--received call from MRI, patient unable to obtain MRI today, can obtain tomorrow, will reach back out to hospitalist > hospital again denied admission. Will consult patient's PCP, will need MRI outpatient. Case discussed with Dr. Lin who also evaluated patient, is in agreement with plan the patient can follow-up outpatient this does not need to be emergent MRI. -1746--spoke with patient's PCP Dr. Christianson, he is uncomfortable patient is discharged recommended Neurology consult, reports he would be unable to get patient MRI for couple weeks. Will obtain Neurology consult -Spoke with Neurology, Dr. Rossi, reports no neurological emergency at this time, recommends outpatient neuro/PCP follow-up Results discussed with patient including worrisome signs and symptoms and strict return precautions, and needed close follow-up with PCP/neurology. This was discussed with patient and family at bedside. Discussed when to return to the emergency department. They verbalized understanding and feel safe for discharge at this time. Medical Decision Making Medical Decision Making MDM Narrative: 72-year-old male with a past medical history of HLD, HTN, osteoarthritis, thrombocytopenia, diabetes, diverticulitis s/p colostomy and reversal, sent to ED from urgent care for 1 month of increasing weakness, greater on right side, with intermittent confusion, slurred speech, and off balance gait. Also reports left flank pain, worse with urination. On exam vital signs stable, NAD, RLE weakness appreciated, + Romberg test, ambulating with unsteady gait leading to right. Abdomen soft with LLQ tenderness, no rebound or guarding, no CVA tenderness. Concern for subacute CVA, patient out of the window for tPA. Co ncern for diverticulitis vs renal stone/pyelo vs UTI. Lower suspicion for TIA, ICH, appendicitis Plan: EKG, labs, UA, CXR, head CT, CT AP, admission Differential Diagnosis Differential Diagnoses: The differential diagnosis associated with the presentation includes as above Admission/Observation Consideration of admission/observation: Escalation of care including admission/observation considered Lab Data [facility] Lab Attestation statement: I reviewed the patient's lab results. 12/19/22 10:17 12/19/22 10:17 Labs: Lab Results 12/19/22 12/19/22 12/19/22 Range/Units 10:17 10:17 10:17 WBC 6.7 (4.8-10.8) X10*3/uL RBC 4.01 L (4.60-5.80) X10*6/uL Hgb 12.3 L (14.0-18.0) g/dl Hct 37.0 L (42.0-52.0) % MCV 92.3 (80.0-98.0) fL MCH 30.7 (27.0-33.0) pg MCHC 33.2 (31.0-36.0) g/dl RDW 15.2 (11.0-16.0) % Plt Count 77 L (160-400) X10*3/uL MPV 11.0 (9.4-12.4) fL Immature Gran % (Auto) 0.3 (0.0-0.4) % Neut % (Auto) 67.9 (45-73) % Lymph % (Auto) 19.0 L (20-40) % Ro[place] % (Auto) 10.0 (2-11) % Eos % (Auto) 2.1 (0-4) % Baso % (Auto) 0.7 (0-2) % Lymph # (Auto) 1.3 (1.2-4.9) X10*3/uL Roane # (Auto) 0.7 (0.1-1.2) X10*3/uL Eos # (Auto) 0.1 (0.0-0.4) X10*3/uL Baso # (Auto) 0.1 (0.0-0.2) X10*3/uL Abs Immat Gran (auto) 0.02 (0.00-0.03) X10*3/uL Absolute Neuts (auto) 4.6 (2.0-8.3) x10*3/uL Absolute Nucleated RBC 0.000 (0.0-0.012) X10*3/uL Nucleated RBC % (auto) 0.0 (0.0-0.2) /100WBC PT (10.0-13.1) SEC INR (0.9-1.1) Sodium 137 (135-145) mmol/L Potassium 4.2 (3.3-5.1) mmol/L Chloride 106 (96-108) mmol/L Carbon Dioxide 18 L (22-29) mmol/L Anion Gap 17 (12-20) BUN 15 (9-16) mg/dL Creatinine 0.86 (0.5-1.4) mg/dL Estim Creat Clear Calc 82.8 Estimated GFR > 60 Random Glucose 194 H (60-115) mg/dL Calcium 9.7 (8.4-10.2) mg/dL Magnesium 1.6 (1.6-2.6) mg/dL Total Bilirubin 1.3 H (0.0-1.0) mg/dL Direct Bilirubin 0.4 (0.0-0.5) mg/dL AST 47 H (5-37) U/L ALT 30 (0-40) U/L Alkaline Phosphatase 171 H (39-117) U/L Troponin I High Sens 9.9 (<3.5-35.0) ng/L Total Protein 7.7 (6.5-8.0) g/dL Albumin 3.4 L (3.5-5.0) g/dL Urine Color Urine Appearance Urine pH (5.0-9.0) Ur Specific [place] (1.005-1.025) Urine Protein (Neg-Trace) mg/dL Urine Glucose (UA) (Negative) mg/dL Urine Ketones (Negative) mg/dL Urine Blood (Negative) Urine Nitrite (Negative) Ur Leukocyte Esterase (Negative) COVID-19 (ADEN) (Negative) COVID-19 Clin Com Influenza Type A (JEN) (Negative) Influenza Type B (JEN) (Negative) Influenza A & B Note 12/19/22 12/19/22 12/19/22 Range/Units 10:17 10:17 10:17 WBC (4.8-10.8) X10*3/uL RBC (4.60-5.80) X10*6/uL Hgb (14.0-18.0) g/dl Hct (42.0-52.0) % MCV (80.0-98.0) fL MCH (27.0-33.0) pg MCHC (31.0-36.0) g/dl RDW (11.0-16.0) % Plt Count (160-400) X10*3/uL MPV (9.4-12.4) fL Immature Gran % (Auto) (0.0-0.4) % Neut % (Auto) (45-73) % Lymph % (Auto) (20-40) % Roane % (Auto) (2-11) % Eos % (Auto) (0-4) % Baso % (Auto) (0-2) % Lymph # (Auto) (1.2-4.9) X10*3/uL [place]ane # (Auto) (0.1-1.2) X10*3/uL Eos # (Auto) (0.0-0.4) X10*3/uL Baso # (Auto) (0.0-0.2) X10*3/uL Abs Immat Gran (auto) (0.00-0.03) X10*3/uL Absolute Neuts (auto) (2.0-8.3) x10*3/uL Absolute Nucleated RBC (0.0-0.012) X10*3/uL Nucleated RBC % (auto) (0.0-0.2) /100WBC PT 15.5 H (10.0-13.1) SEC INR 1.3 H (0.9-1.1) Sodium (135-145) mmol/L Potassium (3.3-5.1) mmol/L Chloride (96-108) mmol/L Carbon Dioxide (22-29) mmol/L Anion Gap (12-20) BUN (9-16) mg/dL Creatinine (0.5-1.4) mg/dL Estim Creat Clear Calc Estimated GFR Random Glucose (60-115) mg/dL Calcium (8.4-10.2) mg/dL Magnesium (1.6-2.6) mg/dL Total Bilirubin (0.0-1.0) mg/dL Direct Bilirubin (0.0-0.5) mg/dL AST (5-37) U/L ALT (0-40) U/L Alkaline Phosphatase (39-117) U/L Troponin I High Sens (<3.5-35.0) ng/L Total Protein (6.5-8.0) g/dL Albumin (3.5-5.0) g/dL Urine Color Urine Appearance Urine pH (5.0-9.0) Ur Specific [place] (1.005-1.025) Urine Protein (Neg-Trace) mg/dL Urine Glucose (UA) (Negative) mg/dL Urine Ketones (Negative) mg/dL Urine Blood (Negative) Urine Nitrite (Negative) Ur Leukocyte Esterase (Negative) COVID-19 (ADEN) Negative (Negative) COVID-19 Clin Com See Note Influenza Type A (JEN) Negative (Negative) Influenza Type B (JEN) Negative (Negative) Influenza A & B Note See Note 12/19/22 Range/Units 11:58 WBC (4.8-10.8) X10*3/uL RBC (4.60-5.80) X10*6/uL Hgb (14.0-18.0) g/dl Hct (42.0-52.0) % MCV (80.0-98.0) fL MCH (27.0-33.0) pg MCHC (31.0-36.0) g/dl RDW (11.0-16.0) % Plt Count (160-400) X10*3/uL MPV (9.4-12.4) fL Immature Gran % (Auto) (0.0-0.4) % Neut % (Auto) (45-73) % Lymph % (Auto) (20-40) % [place] % (Auto) (2-11) % Eos % (Auto) (0-4) % Baso % (Auto) (0-2) % Lymph # (Auto) (1.2-4.9) X10*3/uL [place] # (Auto) (0.1-1.2) X10*3/uL Eos # (Auto) (0.0-0.4) X10*3/uL Baso # (Auto) (0.0-0.2) X10*3/uL Abs Immat Gran (auto) (0.00-0.03) X10*3/uL Absolute Neuts (auto) (2.0-8.3) x10*3/uL Absolute Nucleated RBC (0.0-0.012) X10*3/uL Nucleated RBC % (auto) (0.0-0.2) /100WBC PT (10.0-13.1) SEC INR (0.9-1.1) Sodium (135-145) mmol/L Potassium (3.3-5.1) mmol/L Chloride (96-108) mmol/L Carbon Dioxide (22-29) mmol/L Anion Gap (12-20) BUN (9-16) mg/dL Creatinine (0.5-1.4) mg/dL Estim Creat Clear Calc Estimated GFR Random Glucose (60-115) mg/dL Calcium (8.4-10.2) mg/dL Magnesium (1.6-2.6) mg/dL Total Bilirubin (0.0-1.0) mg/dL Direct Bilirubin (0.0-0.5) mg/dL AST (5-37) U/L ALT (0-40) U/L Alkaline Phosphatase (39-117) U/L Troponin I High Sens (<3.5-35.0) ng/L Total Protein (6.5-8.0) g/dL Albumin (3.5-5.0) g/dL Urine Color Yellow Urine Appearance Hazy Urine pH 6.5 (5.0-9.0) Ur Specific [place] 1.020 (1.005-1.025) Urine Protein Negative (Neg-Trace) mg/dL Urine Glucose (UA) Negative (Negative) mg/dL Urine Ketones Trace (Negative) mg/dL Urine Blood Negative (Negative) Urine Nitrite Negative (Negative) Ur Leukocyte Esterase Negative (Negative) COVID-19 (ADEN) (Negative) COVID-19 Clin Com Influenza Type A (JEN) (Negative) Influenza Type B (JEN) (Negative) Influenza A & B Note Independent Interpretation I performed an independent interpretation of an: EKG Interpretation: My interpretation EKG is normal sinus rhythm at a rate of 89. MN interval 184. QTC 450. No STEMI. Nonischemic Radiology Impression Discussion of test interpretation with radiology: I have reviewed the radiologist's reading. Independent Historian Daughter, granddaughter External Record Review External record reviewed: Office record, Outpatient record and Prior outpatient labs Chronic Conditions Patient?s care impacted by: Diabetes and Hypertension NIH Stroke Scale Internal: Initial- Upon Arrival Level of Consciousness: Alert Level of Consciousness Questions: Answers both questions correctly Level of Consciousness Commands: Performs both tasks correctly Best Gaze: Normal Visual: No visual loss Facial Palsy: Normal Motor Arm (Right): No drift Motor Arm (Left): No drift Motor Leg (Right): No drift Motor Leg (Left): No drift Limb Ataxia: Absent Sensory: Normal Best Language: No aphasia Dysarthia: Normal Extinction and Inattention: No abnormality Score: 0 Critical Care Time Critical Care Time Critical Care Time: Yes Total Critical Care Time: 50 Attestation: I have personally provided critical care time exclusive of time spent on separately billable procedures. Time includes review of lab data, radiology results, discussion with consultants, and monitoring for potential decompensation. Intervention performed as documented. Discharge Plan Discharge Clinical Impression: Weakness, Abdominal pain, Unsteady gait Patient Disposition: Home, Self-Care Instructions: Weakness (ED), Abdominal Pain (ED) Additional Instructions: Your blood work and CTs were reassuring. YOU NEED TO HAVE CLOSE FOLLOW-UP WITH HER DO[facility], CALL TODAY TO MAKE APPOINTMENTS. If symptoms persist or worsen, you fall, have headache, chest pain/shortness of breath, worsening weakness, numbness, you are unable to ambulate return to the emergency department Continue home medication Kalani an?lisis de bushra y tomograf?as computarizadas fueron tranquilizadores. NECESITA TENER UN SEGUIMIENTO CERCANO CON RUSS DOCTOR [facility], LLAME HOY PARA HACER CITAS. Si los s?ntomas persisten o empeoran, se , tiene dolor de yady, dolor de pecho/dificultad para respirar, empeoramiento de la debilidad, entumecimiento, no puede deambular, regrese al departamento de emergencias. Continuar la medicaci?n en casa Prescriptions: No Action oxycodone-acetaminophen 5-325 mg tablet 1 tab PO Q8H PRN (Reason: severe pain) pantoprazole 40 mg tablet,delayed release (DR/EC) 40 mg PO DAILY@0630 Rx Instructions: take one tablet half an hour before breakfast celecoxib 200 mg capsule 1 cap PO DAILY aspirin 81 mg Tablet,Delayed Release (Dr/Ec) 81 mg PO DAILY cholecalciferol (vitamin D3) 50 mcg (2,000 unit) capsule 50 mcg PO DAILY Qty: 90 3RF polyethylene glycol 3350 [Miralax] 17 gram powder in packet 17 g PO DAILY Qty: 100 3RF docusate sodium 100 mg capsule 100 mg PO BEDTIME Qty: 90 3RF metformin 500 mg tablet extended release 24 hr 500 mg PO DAILY (DME) FreeStyle Lite Strips Strip See Rx Instructions .ROUTE DAILY Qty: 10 Rx Instructions: As directed rosuvastatin 40 mg tablet 40 mg PO DAILY (DME) lancets [FreeStyle Lancets] 28 gauge misc See Rx Instructions topical DAILY Qty: 100 Rx Instructions: As directed cyanocobalamin (vitamin B-12) 1,000 mcg tablet 1,000 mcg PO DAILY Referrals: [facility] Neuro/Sleep [Provider Group] Vince Cosme MD [Primary Care Provider] - Interventions: ED Discharge Assessment Last Done: 12/19/22 15:20 Discharge Date/Time: 12/19/22 15:21 Print Language: Belarusian
[2022-12-19 10:25] LABS: Imm Gran Abs Auto 0.02 X10*3/uL (0.00-0.03); Imm Gran Pct Auto 0.3 % (0.0-0.4); Red Cell Distribution Width 15.2 % (11.0-16.0)
[2022-12-19 10:26] LABS: Basophils Absolute Auto 0.1 X10*3/uL (0.0-0.2); Basophils Percent Auto 0.7 % (0-2); Eosinophils Absolute Auto 0.1 X10*3/uL (0.0-0.4); Eosinophils Percent Auto 2.1 % (0-4); Hemoglobin 12.3 g/dl (14.0-18.0); Lymphocytes Absolute Auto 1.3 X10*3/uL (1.2-4.9); Mean Corpuscular HGB Conc 33.2 g/dl (31.0-36.0); Mean Corpuscular Hemoglobin 30.7 pg (27.0-33.0); Mean Corpuscular Volume 92.3 fL (80.0-98.0); Monocytes Absolute Auto 0.7 X10*3/uL (0.1-1.2); Neutrophils Absolute Auto 4.6 x10*3/uL (2.0-8.3); Neutrophils Percent Auto 67.9 % (45-73); Red Blood Count 4.01 X10*6/uL (4.60-5.80)
[2022-12-19 10:30] LABS: INTERNATIONAL NORM RATIO 1.3 (0.9-1.1); Prothrombin Time 15.5 SEC (10.0-13.1)
[2022-12-19 10:34] LABS: Platelet Count 77 X10*3/uL (160-400); White Blood Count 6.7 X10*3/uL (4.8-10.8)
[2022-12-19 10:47] LABS: Alanine Aminotransferase 30 U/L (0-40); Albumin Level 3.4 g/dL (3.5-5.0); Alkaline Phosphatase 171 U/L (39-117); Anion Gap 17 (12-20); Aspartate Amino Transferase 47 U/L (5-37); Bilirubin Direct 0.4 mg/dL (0.0-0.5); Bilirubin Total 1.3 mg/dL (0.0-1.0); Blood Urea Nitrogen 15 mg/dL (9-16); Calcium 9.7 mg/dL (8.4-10.2); Carbon Dioxide 18 mmol/L (22-29); Chloride 106 mmol/L (96-108); Creatinine Clr Calc Pharmacy 82.8; Estimated Glomerular Filt Rate > 60; Glucose Random 194 mg/dL (60-115); Magnesium 1.6 mg/dL (1.6-2.6); Potassium 4.2 mmol/L (3.3-5.1); Sodium 137 mmol/L (135-145); Total Protein 7.7 g/dL (6.5-8.0)
[2022-12-19 10:50] LABS: Troponin-I High Sensitivity 9.9 ng/L (<3.5-35.0)
[2022-12-19 10:52] LABS: COVID-19 Test Negative (Negative); IDNOW Serial# 9DB6401D; IDNOW Serial# BCCEAD1C; Influenza A Negative (Negative); Influenza B2 Negative (Negative)
--- NOTE | 2022-12-19 10:52 | PHA.MEDREC ---
Pharmacy Consult ? Medication Reconciliation Pharmacy has completed the medication reconciliation. spoke with patients family member
[2022-12-19 11:21] VITALS: BP 125/83; PULSE 86; RESP 16; O2SAT 98
[2022-12-19 12:07] LABS: Appearance Urine Hazy; Color Urine Yellow; Glucose Urine UA Negative (Negative); Leukocyte Esterase Urine Negative (Negative); Nitrite Urine Negative (Negative); PH 6.5 (5.0-9.0); Urine Blood Negative (Negative); Urine Ketones Trace mg/dL (Negative); Urine Protein Negative (Neg-Trace)
--- NOTE | 2022-12-19 14:06 | MHC.EDTECH ---
@[id number] I reached out to Vince Christianson via [employer] at the request of CORAL Velasco. Gave call back number. Am waiting for a call at this time.
[2022-12-19 14:12] VITALS: BP 128/82; PULSE 86; RESP 16; O2SAT 98
--- NOTE | 2022-12-19 14:22 | MHC.EDTECH ---
@[id number] called the office of Dr. Vince Christianson after not hearing back through [employer]. An individual answered the phone and asked for and name of the patient. They also asked for the name of the requesting provider, Mora Velasco. The individual stated they would reach out to Dr. Christianson and took a call back number.
--- NOTE | 2022-12-19 15:08 | PC.NURSE ---
report received from EMILIANO España Pt is wandering around room, no apparent distress at this time, awaiting follow up from provider regarding possibility for outpatient MRI. Pt daughter at bedside
== END 2022-12-19 15:21 | disposition home or self-care (01) ==
PROVIDERS: Physician Assistant; Emergency Provider Emergency Medicine; PCP Internal Medicine
DX: R53.1 Weakness (principal); R10.32 Left lower quadrant pain; R26.81 Unsteadiness on feet; R41.0 Disorientation, unspecified; R47.81 Slurred speech; Z20.822 Contact with and (suspected) exposure to COVID-19; E11.9 Type 2 diabetes mellitus without complications; I10 Essential (primary) hypertension; E78.5 Hyperlipidemia, unspecified; F17.210 Nicotine dependence, cigarettes, uncomplicated; D69.6 Thrombocytopenia, unspecified; Z79.82 Long term (current) use of aspirin; Z79.02 Long term (current) use of antithrombotics/antiplatelets; Z79.899 Other long term (current) drug therapy
CPT/HCPCS: 36415; 70450; 71045; 74176; 80048; 80076; 81003; 83735; 84484; 85025; 85610; 87502; 87635; 93005; 99284; 99285

== ENCOUNTER 2022-12-25 10:03 | Outpatient (REF) | payer MEDICARE, MEDICAID, SELFPAY ==
[2022-12-25 10:33] LABS: Ammonia 107 umol/L (13-55)
== END 2022-12-25 10:04 | disposition home or self-care (01) ==
LOC: HO.LAB 10:03
PROVIDERS: PCP Internal Medicine; Visit Provider Internal Medicine
DX: K70.30 Alcoholic cirrhosis of liver without ascites (principal)
CPT/HCPCS: 36415; 82140

== ENCOUNTER → 2023-01-14 10:46 | Outpatient (BNVA) | payer MEDICARE, MEDICAID, SELFPAY | PROVIDERS: PCP Internal Medicine; Visit Provider Nurse Practitioner Family | DX: K74.60 Unspecified cirrhosis of liver (principal); K21.9 Gastro-esophageal reflux disease without esophagitis; R10.9 Unspecified abdominal pain; R14.0 Abdominal distension (gaseous) | CPT/HCPCS: 99212 ==

== ENCOUNTER 2023-01-17 10:22 | Outpatient (REF) | payer MEDICARE, MEDICAID, SELFPAY ==
[2023-01-17 15:08] LABS: Alanine Aminotransferase 30 U/L (0-40); Albumin Level 3.3 g/dL (3.5-5.0); Alkaline Phosphatase 174 U/L (39-117); Aspartate Amino Transferase 43 U/L (5-37); Bilirubin Direct 0.5 mg/dL (0.0-0.5); Bilirubin Total 1.3 mg/dL (0.0-1.0); Total Protein 7.4 g/dL (6.5-8.0)
== END 2023-01-17 10:23 | disposition home or self-care (01) ==
LOC: HO.LAB 10:22
PROVIDERS: PCP Internal Medicine; Visit Provider Nurse Practitioner Family
DX: R10.9 Unspecified abdominal pain (principal)
CPT/HCPCS: 36415; 80076

== ENCOUNTER → 2023-02-19 10:40 | Outpatient (BNVA) | payer MEDICARE, MEDICAID, SELFPAY | PROVIDERS: PCP Internal Medicine; Referring Provider Internal Medicine; Visit Provider Nurse Practitioner Family | DX: K21.9 Gastro-esophageal reflux disease without esophagitis (principal); R10.12 Left upper quadrant pain; K58.2 Mixed irritable bowel syndrome; K70.30 Alcoholic cirrhosis of liver without ascites; Z79.899 Other long term (current) drug therapy | CPT/HCPCS: 99212 ==

== ENCOUNTER 2023-03-26 12:02 | Outpatient (REF) | payer MEDICARE, MEDICAID, SELFPAY | END 2023-03-26 12:03 | disposition home or self-care (01) | LOC: HO.XRAY 12:02 | PROVIDERS: PCP Internal Medicine; Visit Provider Internal Medicine | DX: Z13.89 Encounter for screening for other disorder (principal) ==

== ENCOUNTER 2023-03-27 09:19 | Outpatient (REF) | payer MEDICARE, MEDICAID, SELFPAY ==
--- NOTE | ~2023-03-27 | XR_ITS ---
EXAMINATION: XR RIBS, RIGHT CLINICAL INFORMATION: Right-sided chest pain COMPARISON: 12/19/2022 TECHNIQUE: Single view chest and 3 views of the right ribs were obtained. FINDINGS: The heart and pulmonary vessels appear normal without evidence of CHF. There is new, since December 2022, patchy consolidation present in the right upper lobe with some increased reticular nodular densities. Findings are suggestive of pneumonia. The ribs are unremarkable without fractures or bony destructive lesions. Mild degenerative changes are present in the spine. XR/XR ribs RT min 3V w CXR1V IMPRESSION: Right upper lobe pneumonia. Repeat imaging is recommended after treatment to ensure clearing
[2023-03-27 09:45] LABS: MANUAL DIFF FLAG NO
[2023-03-27 10:22] LABS: Basophils Absolute Auto 0.1 X10*3/uL (0.0-0.2); Basophils Percent Auto 0.6 % (0-2); Eosinophils Percent Auto 0.5 % (0-4); Hematocrit 33.6 % (42.0-52.0); Hemoglobin 11.1 g/dl (14.0-18.0); Imm Gran Abs Auto 0.07 X10*3/uL (0.00-0.03); Imm Gran Pct Auto 0.9 % (0.0-0.4); Lymphocytes Absolute Auto 0.9 X10*3/uL (1.2-4.9); Lymphocytes Percent Auto 11.1 % (20-40); Mean Corpuscular Hemoglobin 30.6 pg (27.0-33.0); Mean Corpuscular Volume 92.6 fL (80.0-98.0); Mean Platelet Volume 10.3 fL (9.4-12.4); Monocytes Absolute Auto 0.8 X10*3/uL (0.1-1.2); Monocytes Percent Auto 9.5 % (2-11); Neutrophils Absolute Auto 6.3 x10*3/uL (2.0-8.3); Neutrophils Percent Auto 77.4 % (45-73); Platelet Count 132 X10*3/uL (160-400); Red Blood Count 3.63 X10*6/uL (4.60-5.80); Red Cell Distribution Width 15.9 % (11.0-16.0); White Blood Count 8.2 X10*3/uL (4.8-10.8)
[2023-03-27 11:00] LABS: Erythrocyte Sedimentation Rate 91 MM/HR (0-15)
[2023-03-27 11:20] LABS: Alanine Aminotransferase 31 U/L (0-40); Albumin Level 2.9 g/dL (3.5-5.0); Alkaline Phosphatase 235 U/L (39-117); Aspartate Amino Transferase 53 U/L (5-37); Bilirubin Direct 0.7 mg/dL (0.0-0.5); Bilirubin Total 1.5 mg/dL (0.0-1.0); Total Protein 7.4 g/dL (6.5-8.0)
[2023-03-27 11:25] LABS: HIV AB/AG Nonreactive (Nonreactive); HIV Num 1 0.14 S/CO (0.00-0.99)
[2023-03-27 11:31] LABS: ~HepC Num1 0.22 S/CO (0.00-0.79); ~Hepatitis C Antibody Nonreactive (Nonreactive)
[2023-03-27 11:46] LABS: TSH reflex Free T4 0.63 uIU/mL (0.32-4.0)
[2023-03-31 13:49] LABS: Alpha Fetoprotein 3.9 ng/mL (<6.1)
== END 2023-03-27 09:20 | disposition home or self-care (01) ==
LOC: HO.XRAY 09:19
PROVIDERS: PCP Internal Medicine; Visit Provider Internal Medicine
DX: Z11.4 Encounter for screening for human immunodeficiency virus [HIV] (principal); R09.81 Nasal congestion; R63.4 Abnormal weight loss
CPT/HCPCS: 36415; 71101; 80076; 82105; 84443; 85025; 85652; 86803; 87389

== ENCOUNTER 2023-04-18 08:57 | Outpatient (REF) | payer MEDICARE, MEDICAID, SELFPAY ==
--- NOTE | ~2023-04-18 | CT_ITS ---
EXAMINATION: CT CHEST WITHOUT CONTRAST CLINICAL INFORMATION: Weight loss. Lung opacity. COMPARISON: Chest and right rib x-rays March 2023 TECHNIQUE: Multidetector volumetric CT imaging of the chest was done. Axial MIP volume rendering provided. Sagittal and coronal reformatted images were obtained. This CT examination was performed using dose optimization techniques as appropriate, variously including the following: *Automated exposure control *Adjustment of mA and/or kV according to patient size (this includes techniques or standardized protocols for targeted exams where dose is matched to indication/reason for exam; i.e. extremities or head) *Use of iterative reconstruction technique DLP: 162 mGy-cm FINDINGS: LUNGS: New volume loss to the right hemithorax. New complete right upper lung atelectasis. This has progressed from March 2023 chest and rib x-rays. Abrupt cut off of the right upper lobe bronchus. Underlying mass should be excluded and bronchoscopy recommended. Dependent atelectasis. MEDIASTINUM: Normal thyroid gland. Prominent upper normal-size mediastinal lymph nodes, largest in the right paratracheal region. Hilar adenopathy not evaluated without IV contrast. Slightly dilated ascending thoracic aorta measuring 4.3 cm. Normal heart size. Aortic valve calcification. No pericardial effusion. CORONARY ARTERY CALCIFICATION: Moderate to severe PLEURA: Mild pleural thickening and scattered areas of calcification in greatest at the lung bases. No pleural effusion. AXILLA: No chest wall mass or enlarged axillary lymph nodes. UPPER ABDOMEN: See abdominal and pelvic CT report from the same day. OSSEOUS STRUCTURES: Degenerative changes of the spine and shoulders. CT/CT chest wo IV con IMPRESSION: New complete right upper lobe atelectasis. The right upper lobe bronchus. Underlying central mass should be considered. Bronchoscopy recommended. Prominent severe coronary artery calcification. Mild scattered areas of pleural thickening and pleural calcification, greatest at the lung bases. Clinically correlate for history of asbestos exposure. Aortic valve calcification. Dilated ascending thoracic aorta measuring 4.3 cm. Prominent mediastinal lymph nodes. Fleischner guidelines were followed. Findings will be communicated by the [facility] work flow technical training instructor.
--- NOTE | ~2023-04-18 | CT_ITS ---
EXAMINATION: CT ABDOMEN WITHOUT CONTRAST CLINICAL INFORMATION: Abnormal weight loss COMPARISON: Previous abdominal ultrasound from earlier the same day and CT of the abdomen and pelvis December 2022 TECHNIQUE: Contiguous axial thin section helical images of the abdomen were performed without contrast. The data set was reformatted in the coronal and sagittal planes and reviewed on an independent workstation. This CT examination was performed using dose optimization techniques as appropriate, variously including the following: *Automated exposure control *Adjustment of mA and/or kV according to patient size (this includes techniques or standardized protocols for targeted exams where dose is matched to indication/reason for exam; i.e. extremities or head) *Use of iterative reconstruction technique DLP: 240 mGy-cm FINDINGS: LUNG BASES: See chest CT report from the same day LIVER, GALLBLADDER, BILIARY TREE: Multiple cirrhotic-appearing liver. No focal liver lesion. Prominent main portal vein measuring 15 mm. Contracted gallbladder and gallstones. No biliary duct dilatation. No ascites. PANCREAS: Normal SPLEEN: Upper normal-size spleen. ADRENAL GLANDS AND KIDNEYS: Small central right renal calcification question representing vascular calcifications as opposed to stones. Kidneys are otherwise normal. BOWEL LOOPS: Question small esophageal hernia. Small paraesophageal lymph nodes. Question old or wall thickening of the distal stomach. Mild diverticulosis and constipation. Postsurgical changes to the bowel in the right lower quadrant, question small bowel. Postsurgical changes to the abdominal wall and atrophy of the rectus muscles. LYMPH NODES: Small lymph nodes adjacent to the distal thoracic esophagus in the periportal and gastrohepatic regions. Small retroperitoneal lymph nodes. No enlarged lymph nodes. No ascites. VASCULAR: Atherosclerotic disease. No aneurysm. BONES: Degenerative changes of the spine. CT/CT abdomen wo IV con IMPRESSION: Cirrhotic-appearing liver. Upper normal-size spleen. Gallstones. Mild constipation and diverticulosis. Question fold or wall thickening of the distal stomach. Severe atherosclerotic disease. Fleischner guidelines were followed.
--- NOTE | ~2023-04-18 | US_ITS ---
EXAMINATION: US COMPLETE ABDOMEN WITH LIVER ELASTOGRAPHY CLINICAL INFORMATION: Abnormal blood chemistry. COMPARISON: 12/19/2022 CT scan TECHNIQUE: Real-time imaging of the abdominal viscera. Noninvasive ultrasound liver fibrosis assessment is performed using [employer] ElastPQ point quantification shear wave elastography (2D-SWE) with a C5-2 MHz transducer. Multiple elastography samples are obtained. FINDINGS: PANCREAS: Normal. The visualized pancreatic head and body are normal in appearance. The remainder of the pancreas is obscured from visualization by the overlying bowel gas. ABDOMINAL AORTA: The proximal and middle aortic segments are normal in caliber. The distal abdominal aorta is not visualized due to being obscured by bowel gas. INFERIOR VENA CAVA: Visualized portions are normal. LIVER: There is a coarsened echotexture present. No intrahepatic bile duct dilatation is identified. No focal abnormal mass is seen. The right lobe measures 15 cm in length. The left lobe measures 9 cm in length. Portal flow is hepatopedal. Shear wave liver elastography median stiffness is 1.61 m/s (reference: normal median stiffness is 1.3 m/s or less). IQR/median stiffness to assess sampling precision is 0.19 (reference: good quality data set is IQR/median stiffness of 0.15 or less). GALLBLADDER: Cholelithiasis is present. No findings to suggest acute cholecystitis. COMMON BILE DUCT: Normal in caliber measuring 0.3 cm in diameter. RIGHT KIDNEY: Normal. No hydronephrosis. No renal calculi or focal parenchymal lesions. The kidney measures 13.4 cm in maximum dimension. LEFT KIDNEY: Normal. No hydronephrosis. No renal calculi or focal parenchymal lesions. The kidney measures 12.2 cm in maximum dimension. SPLEEN: Prominent in size. No abnormal mass. The spleen measures 12.7 cm in maximum dimension. FREE FLUID: None. US/US abdomen comp w elastography IMPRESSION: 1. Coarsened hepatic architecture without focal mass or intrahepatic bile duct dilatation. Cholelithiasis without evidence of acute cholecystitis. 2. Liver elastography: Although measurements appear to rule out compensated advanced chronic liver disease, there is statistical variability of the sampling which decreases accuracy. REFERENCE: Society of Radiologists in Ultrasound Liver Stiffness Thresholds (2019): LIVER STIFFNESS THRESHOLDS: *Liver Stiffness equal or less than 1.3 m/s: High probability of being normal. *Liver Stiffness less than 1.7 m/s: In the absence of other known clinical signs, rules out compensated advanced chronic liver disease. *Liver Stiffness 1.7-2.1 m/s: Suggestive of compensated advanced chronic liver disease but need further test for confirmation. *Liver Stiffness over 2.1 m/s: Rules in compensated advanced chronic liver disease. *Liver Stiffness over 2.4 m/s: Suggestive of clinically significant portal hypertension. QUALITY OF DATA SET: *IQR/Median value equal or less than 0.15 implies a quality data set. *IQR/Median value over 0.15 implies a poor quality data set. SIGNIFICANT CHANGE FROM PRIOR EXAM: Significant change if liver stiffness measurement is 10% or greater from prior exam. OTHER CONSIDERATIONS: The stage of liver fibrosis may be overestimated in the setting of acute hepatitis, liver inflammation, elevated liver function tests, hepatic vascular congestion, obstructive cholestasis, non-fasting state, and infiltrative diseases such as amyloidosis and lymphoma. In some patients with NAFLD, the liver stiffness thresholds for compensated advanced chronic liver disease may be lower. In causes other than viral hepatitis and NAFLD, liver stiffness thresholds are not well established.
== END 2023-04-18 08:58 | disposition home or self-care (01) ==
LOC: HO.US 08:57
PROVIDERS: PCP Internal Medicine; Visit Provider Nurse Practitioner Family
DX: R63.4 Abnormal weight loss (principal); K70.30 Alcoholic cirrhosis of liver without ascites; R91.8 Other nonspecific abnormal finding of lung field; R79.89 Other specified abnormal findings of blood chemistry
CPT/HCPCS: 71250; 74150; 76705; 76981

== ENCOUNTER 2023-04-23 10:36 | Outpatient (REF) | payer MEDICARE, MEDICAID, SELFPAY ==
[2023-04-23 14:15] LABS: Folate 9.8 ng/mL (> or = 4.0); Vitamin B12 575 pg/mL (200-900)
[2023-04-28 15:44] LABS: Vitamin D 25-OH, D2 <4 ng/mL; Vitamin D 25-OH, D3 43 ng/mL; Vitamin D 25-OH, Total 43 ng/mL (30-100)
[2023-05-03 01:49] LABS: FIB-ALT 31 U/L (9-46); FIB-Alpha-2-Macroglobulin 309 mg/dL (106-279); FIB-Apolipoprotein A1 127 mg/dL (94-176); FIB-GGT 188 U/L (3-70); FIB-Haptoglobin 176 mg/dL (43-212); FIB-Total Bilirubin 0.9 mg/dL (0.2-1.2); Liver Fibrosis Score 0.81; Liver Fibrosis Stage F4; Nec Inflam Act Grade A0-A1; Nec Inflam Act Score 0.28
== END 2023-04-23 10:37 | disposition home or self-care (01) ==
LOC: HO.LAB 10:36
PROVIDERS: PCP Internal Medicine; Visit Provider Nurse Practitioner Family
DX: K21.9 Gastro-esophageal reflux disease without esophagitis (principal); K70.30 Alcoholic cirrhosis of liver without ascites; K58.0 Irritable bowel syndrome with diarrhea; K80.20 Calculus of gallbladder without cholecystitis without obstruction; R74.8 Abnormal levels of other serum enzymes; E55.9 Vitamin D deficiency, unspecified; R10.9 Unspecified abdominal pain
CPT/HCPCS: 36415; 81596; 82306; 82607; 82746; 99212

== ENCOUNTER → 2023-05-03 07:45 | Outpatient (BNVA) | payer MEDICARE, MEDICAID, SELFPAY | PROVIDERS: PCP Internal Medicine; Visit Provider Hospitalist | DX: R91.8 Other nonspecific abnormal finding of lung field (principal); F17.210 Nicotine dependence, cigarettes, uncomplicated | CPT/HCPCS: 99202 ==

== ENCOUNTER 2023-05-09 07:43 | Day surgery (SDC) | payer MEDICARE, MEDICAID, SELFPAY ==
--- NOTE | 2023-05-08 10:49 | P.CONAN_ITS ---
Documented by User: Yenifer Donahue NP 05/08/23 10:53 HPI - Anesthesia Eval Consult details Narrative: 72yo M for Bronchoscopy Fiberoptic Hx ETOH abuse with cirrhosis (no ETOH recently per GI office visit) PMFSH Active Problems Active Problems: All Active Problems (Updated 05/05/23 @ 22:34 by Anirudh Sung MD) Lung mass (Acute) Microscopic hematuria (Acute) Renal calculi (Acute) DMII (diabetes mellitus, type 2) (Acute) Thrombocytopenia (Acute) Cigarette smoker (Acute) Right sided abdominal pain (Acute) Choledocholithiasis (Acute) Osteoarthritis (Acute) GERD (gastroesophageal reflux disease) (Acute) Hyperlipidemia (Acute) PVD (peripheral vascular disease) (Acute) Iliac artery aneurysm (Acute) HTN (hypertension) (Acute) Tendinopathy of rotator cuff (Acute) Arthritis of right shoulder region (Acute) Past Medical History Medical History (Updated 05/05/23 @ 22:34 by Anirudh Sung MD) Alcohol abuse Diverticulitis Iliac artery aneurysm Lung mass Pre-diabetes Renal calculi Surgical History Surgical History History of colostomy reversal Social History Social History Household Members: Spouse Alcohol intake: current Alcohol intake frequency: former alcohol drinker Alcohol type: beer and hard liquor Patient Tobacco Use Status: Current everyday Tobacco user Tobacco use type: Cigarette Cigarettes Per Day: 10 Smoked in Last 30 Days: Yes Patient Interested in Nicotine Replacement: No Are you DNR?: No Advance Directives: No Advance Directives Information Provided: No Advance Directives on File: No Nutrition Risks: No Nutritional Risk Meds Allergies Allergy/AdvReac Type Severity Reaction Status Date / Time Iodinated Contrast Media Allergy Unknown UNKNOWN Verified 05/03/23 07:54 [IV Dye, Iodine Containing] Home Medications Medication Instructions Recorded Confirmed Last Taken Type blood sugar diagnostic (FreeStyle #10 ea 04/06/22 12/09/22 Unknown History Lite Strips) lancets 28 gauge (FreeStyle #100 ea 04/06/22 12/09/22 Unknown History Lancets) metformin 500 mg tablet,extended 500 mg PO DAILY 04/06/22 12/19/22 Unknown History release 24 hr rosuvastatin 40 mg tablet 40 mg PO DAILY 04/06/22 12/19/22 Unknown History cyanocobalamin (vitamin B-12) 1,000 mcg PO DAILY 12/07/22 12/19/22 Unknown History 1,000 mcg tablet aspirin 81 mg tablet,delayed 81 mg PO DAILY 12/19/22 12/19/22 Unknown History release pantoprazole 40 mg tablet,delayed 40 mg PO DAILY@0630 12/19/22 12/19/22 Unknown History release oxycodone 5 mg tablet 5 mg PO Q8H PRN severe pain 04/23/23 Unknown History gabapentin 100 mg capsule 100 mg PO TID 05/03/23 Unknown History Exam Exam Date and Time: May 08, 2023 1049 Pertinent Lab Results Pertinent Lab Results: Laboratory Tests 12/19/22 03/27/23 10:17 09:43 WBC 8.2 Hgb 11.1 L Hct 33.6 L Plt Count 132 L D Sodium 137 Potassium 4.2 Chloride 106 Carbon Dioxide 18 L BUN 15 Creatinine 0.86 Narrative Narrative: EKG 12/2022 Vent. Rate : 089 BPM ? ? Atrial Rate : 089 BPM ?? P-R Int : 184 ms? QRS Dur : 096 ms ? ? QT Int : 370 ms ? ? ? P-R-T Axes : 031 -19 037 degrees ?? QTc Int : 450 ms ? Normal sinus rhythm Minimal voltage criteria for LVH, may be normal variant ( R in aVL ) Borderline ECG When compared with ECG of 19-AUG-2018 01:29, Premature ventricular complexes are no longer Present Assessment and Plan Assessment Anesthesia Assessment: Chart Reviewed Documented by User: Fran Alejandre MD 05/09/23 09:12 [facility] Past Medical History Medical History (Updated 05/05/23 @ 22:34 by Anirudh Sung MD) Alcohol abuse Diverticulitis Iliac artery aneurysm Lung mass Pre-diabetes Renal calculi Family History Family history of problems with anesthesia: No Surgical History Surgical History History of colostomy reversal History of Problems with Anesthesia: No Social History Social History Household Members: Spouse Alcohol intake: current Alcohol intake frequency: former alcohol drinker Alcohol type: beer and hard liquor Patient Tobacco Use Status: Current everyday Tobacco user Tobacco use type: Cigarette Cigarettes Per Day: 10 Smoked in Last 30 Days: Yes Patient Interested in Nicotine Replacement: No Are you DNR?: No Advance Directives: No Advance Directives Information Provided: No Advance Directives on File: No Nutrition Risks: No Nutritional Risk Meds Allergies Allergy/AdvReac Type Severity Reaction Status Date / Time Iodinated Contrast Media Allergy Unknown UNKNOWN Verified 05/03/23 07:54 [IV Dye, Iodine Containing] Home Medications Medication Instructions Recorded Confirmed Last Taken Type blood sugar diagnostic (FreeStyle #10 ea 04/06/22 12/09/22 Unknown History Lite Strips) lancets 28 gauge (FreeStyle #100 ea 04/06/22 12/09/22 Unknown History Lancets) metformin 500 mg tablet,extended 500 mg PO DAILY 04/06/22 12/19/22 Unknown History release 24 hr rosuvastatin 40 mg tablet 40 mg PO DAILY 04/06/22 12/19/22 Unknown History cyanocobalamin (vitamin B-12) 1,000 mcg PO DAILY 12/07/22 12/19/22 Unknown History 1,000 mcg tablet aspirin 81 mg tablet,delayed 81 mg PO DAILY 12/19/22 12/19/22 Unknown History release pantoprazole 40 mg tablet,delayed 40 mg PO DAILY@0630 12/19/22 12/19/22 Unknown History release oxycodone 5 mg tablet 5 mg PO Q8H PRN severe pain 04/23/23 Unknown History gabapentin 100 mg capsule 100 mg PO TID 05/03/23 Unknown History Exam Airway Mallampati Class: II TM Dist: >3cm Neck ROM: Limited Heart: rrr Lungs: cta Assessment and Plan Assessment Anesthesia Assessment: Anesthesia Plan Discussed Final Anesthetic Review Family History of Problems with Anesthesia: No History of Problems with Anesthesia: No NPO: Yes ASA Class: IV Final Preanesthetic Review: No Changes in Pt Med Stat, Meds/Allgs Chart Reviewed, Consent Obtained/Reviewed and Anes Risks/Benef Reviewed Patient Risk: Intermediate Procedure Risk: Intermediate Anesthetic Plan Anesthetic Plan: GA and Agree w/ Assess. and Plan Disposition: Standard PACU
[2023-05-09] MEDS: Lactated Ringers 1,000 ML 100 ML IVCONT (08:21)
--- NOTE | 2023-05-09 08:29 | MHC.SHP ---
Pre-Procedural Eval Section A Date of Service: 05/09/23 The patient is an INPATIENT: No Changes since office visit: No Cold of Flu in the past 2 weeks, No New Medical Problems, No Changes in Medication and No Patient answered all questions The History & Physical has been completed within 30 days and I have reviewed it.: Yes Section B Chief Complaint: Pneumonia, unspecified organism Allergies: Allergies Allergy/AdvReac Type Severity Reaction Status Date / Time Iodinated Contrast Media Allergy Unknown UNKNOWN Verified 05/03/23 07:54 [IV Dye, Iodine Containing] Plan I have reviewed the history and physical and performed a pertinent physical examination on my patient. No changes have occurred unless specified. Time Spent With Patient Time: Total time managing care of this patient today ____ minutes.
[2023-05-09 08:51] VITALS: BMI 26.6
[2023-05-09 08:53] VITALS: BP 104/64; PULSE 77; RESP 18; TEMP 36.7; O2SAT 98
[2023-05-09 09:13] LABS: Glucose, Whole Blood 167 mg/dL (60-115)
--- NOTE | 2023-05-09 10:39 | P.BOP_ITS ---
Brief Operative Note Date of Service: 05/09/23 Pre-op diagnosis: lung mass Post-op diagnosis: other (RUL lung cancer) Procedure: bronchoscopy with washings and biopsies Implants: Surgeon: Anirudh Sung MD Anesthesia: GETA Was an Air Conditioning Installer Supervisor used for this Procedure?: No Estimated blood loss (mL): 2 Pathology: other (RUL biopsies) Condition: stable Disposition: same day
[2023-05-09 10:43] VITALS: BP 111/51; PULSE 76; RESP 20; TEMP 36.3; O2SAT 98
[2023-05-09 10:48] VITALS: BP 102/59; PULSE 92; RESP 18; O2SAT 98
[2023-05-09 10:53] VITALS: BP 107/61; PULSE 77; RESP 16; O2SAT 99
[2023-05-09 10:58] VITALS: BP 97/50; PULSE 76; RESP 16; O2SAT 99
[2023-05-09 11:13] VITALS: BP 121/58; PULSE 71; RESP 16; TEMP 36.4; O2SAT 96
--- NOTE | 2023-05-09 23:10 | OP_ITS ---
DATE OF SERVICE: 05/09/2023 SURGEON: Anirudh Sugn MD PREOPERATIVE DIAGNOSIS: Lung mass. POSTOPERATIVE DIAGNOSIS: Lung cancer. PROCEDURE PERFORMED: Bronchoscopy. ESTIMATED BLOOD LOSS: COMPLICATIONS: None. ANESTHESIA: General endotracheal anesthesia provided. ASSISTANTS: SPECIMENS: ASA CLASSIFICATION: 3. INTERPRETATION: 1. Successful endobronchial biopsies of the right upper lobe mass. 2. Bronchial washings for both cytology and microbiology. PROCEDURE IN DETAIL: After the patient was adequately sedated, the flexible digital bronchoscope was inserted via the ET tube to the level of trachea. Tracheal mucosa appeared to be normal. After instilling lidocaine, the bronchoscope was then passed to the tracheobronchial tree. There appeared to be concerning obstructing mass like density obstructing the right upper lobe airway. This was 100% block. The area appeared to be fungating and also appeared to be friable with some oozing with minimal manipulation. Otherwise the rest of the airways were clear. He did have evidence of chronic airway disease and also had increased mucoid secretions primarily in the left lung throughout. The bronchoscope was again navigated through the right upper lobe and bronchial washings were collected. In addition to that, forceps were used and endobronchial biopsies of the right upper lobe mass were obtained. The biopsies were placed in formalin. Try to opening up the areas as much as possible, but due to the extent of the tumor growth, it was unable to open up enough to provide an opening into the distal airways. The patient did have some bleeding during the intervention and the biopsies. Therefore, epinephrine 1 ampule was used and patient reached good hemostasis at the end of the procedure. No evidence of any active bleeding. The bronchoscope was then removed. The total endoscopic time approximately 25 minutes. Patient tolerated procedure well. Vital signs were stable throughout the procedure. INSURANCE ATTORNEY: None. Anirudh Sung MD MR/MODL / [id number]
== END 2023-05-09 12:32 | disposition home or self-care (01) ==
PROVIDERS: PCP Internal Medicine; Visit Provider Hospitalist
PROC: 0BJ08ZZ Inspection of Tracheobronchial Tree, Via Natural or Artificial Opening Endoscopic (ICD-10-PCS; CPT 31622; principal; 2023-05-09 09:40)
DX: C34.11 Malignant neoplasm of upper lobe, right bronchus or lung (principal); I10 Essential (primary) hypertension; E11.9 Type 2 diabetes mellitus without complications; F17.210 Nicotine dependence, cigarettes, uncomplicated
CPT/HCPCS: 31625; 36415; 82947; 87070; 87077; 87186; 87205; 88112; 88305; 88360; J0171; J1100; J2370; J2405; J3010

== ENCOUNTER 2023-05-13 15:20 | Outpatient (REF) | payer MEDICARE, MEDICAID, SELFPAY | END 2023-05-13 15:21 | disposition home or self-care (01) | LOC: HO.RESP 15:20 | PROVIDERS: PCP Internal Medicine; Visit Provider Hospitalist | DX: R91.8 Other nonspecific abnormal finding of lung field (principal) | CPT/HCPCS: 94060; 94727; 94729 ==

== ENCOUNTER → 2023-05-21 14:04 | Outpatient (BNV) | payer MEDICARE, MEDICAID, SELFPAY | PROVIDERS: PCP Internal Medicine; Visit Provider Internal Medicine Medical Oncology | DX: C34.91 Malignant neoplasm of unspecified part of right bronchus or lung (principal); K80.50 Calculus of bile duct without cholangitis or cholecystitis without obstruction | CPT/HCPCS: 99204; 99213; 99214 ==

== ENCOUNTER 2023-05-22 09:25 | Outpatient (REF) | payer MEDICARE, MEDICAID, SELFPAY ==
--- NOTE | ~2023-05-22 | MR_ITS ---
EXAMINATION: MR BRAIN WITHOUT AND WITH CONTRAST CLINICAL INFORMATION: Lung cancer. COMPARISON: CT head from 12/19/2022. TECHNIQUE: MRI of the brain was obtained using routine sequences without and following the administration of 8 mL of Gadavist intravenous contrast. FINDINGS: Symmetric T2 hyperintensities within the hypothalamus, bilateral cerebral peduncles, dorsal midbrain/danitza, superior cerebellar peduncles, middle cerebellar peduncles, and deep white matter of the cerebellar hemispheres. No overt restricted diffusion or enhancement within these distributions. No associated susceptibility artifact to suggest mineral deposition. Findings are superimposed on scattered and partially confluent T2 FLAIR hyperintensities throughout the bilateral cerebral hemispheres consistent with moderate underlying microangiopathy. No focal restricted diffusion is demonstrated to suggest acute or subacute cerebral ischemia. No evidence of acute or chronic hemorrhagic products on heme-sensitive imaging. Proportional prominence of the ventricles and sulcal spaces without evidence of obstructive hydrocephalus. No abnormal mass effect. No midline shift. Normal appearance of the pituitary gland. Normal positioning of the cerebellar tonsils. Normal arterial and venous vascular flow voids are present. No abnormal contrast enhancement. Normal, homogeneous marrow signal. Moderate mucosal thickening of the paranasal sinuses. Mild leftward nasal septal deviation. No signal abnormalities within the mastoids. MR/MR head/brain wo/w con IMPRESSION: 1. Symmetric T2 hyperintensities within the hypothalamus, dorsal midbrain/danitza, superior cerebellar peduncles, middle cerebellar peduncles, and deep white matter of the cerebellar hemispheres. No demonstrated restricted diffusion, enhancement, or susceptibility artifact within these distributions. Findings are suggestive of an underlying nonspecific toxic/metabolic or neurodegenerative disorder. 2. No additional acute intracranial abnormalities. No abnormal intracranial enhancement. 3. Moderate underlying microangiopathy and generalized cerebral volume loss.
== END 2023-05-22 09:26 | disposition home or self-care (01) ==
LOC: HO.MRI 09:25
PROVIDERS: PCP Internal Medicine; Visit Provider Internal Medicine
DX: C34.90 Malignant neoplasm of unspecified part of unspecified bronchus or lung (principal)
CPT/HCPCS: 70553; A9585

== ENCOUNTER 2023-08-15 13:41 | Outpatient (AMB) | payer MEDICARE, MEDICAID, SELFPAY ==
[2023-08-15 13:52] VITALS: PULSE 85; O2SAT 97; BMI 27.1
--- NOTE | 2023-08-15 13:52 | MHC.OFFVIS ---
Intake Vital Signs 08/15/23 13:52 Height 5 ft 6 in Weight 168 lb 3.403 oz BMI 27.1 Pulse 85 Pulse Source Pulse Oximeter Pulse Oximetry (%) 97 Oxygen Delivery Method Room Air Comment 1 Liter Oxygen Intake Visit Reasons: Hypoxia Allergies Iodinated Contrast Media [IV Dye, Iodine Containing] Allergy (Unknown, Verified 08/15/23 13:53) Hives HPI HPI Comments History of Present Illness Details The patient is here for pulmonary evaluation. The patient is a 72-year-old gentleman with a history of smoking who apparently has had significant amount of weight loss. He has also been complaining of abdominal discomfort. Ultimately started developing right-sided chest discomfort also radiating to the shoulder. [id number] severity. Patient has been coughing but nonproductive in nature. Denies any fevers or chills or night sweats. As part of workup the patient did undergo imaging studies including a CT scan of the chest that was personally by me. Based on that abnormal CT scan he was referred to Pulmonary. The patient says CT scan demonstrated an obstruction of the right upper lobe airway resulting in a masslike density. Likely that component of that is atelectatic in a component and is mask. This is concerning with history of smoking is of significant weight loss is very suspicious for malignancy. Patient understands that we need to further evaluate this area the best to be done with bronchoscopy. We did talk about the procedure he understands the procedure and also he is there with his daughter who also understands does this patient also the procedure. Will go ahead and schedule the bronchoscopy for next week. 08/15/2023 The patient is here for a pulmonary follow up visit. Overall doing better after his surgery. Will be following up with surgery. The patient has been using oxygen supplementation. We did have him go for a 6MWT and does not require oxygen with activity. Will need continue using the oxygen with sleep. We will request and overnight oximetry. Still having some chest pain related to his surgery, moderate in severity. Also has a pneumonia post op. S/P antibiotics. Now feeling better. [facility] Medical History (Updated 08/15/23 @ 19:34 by Anirudh uSng MD) COPD (chronic obstructive pulmonary disease) Pneumonia Squamous cell carcinoma of lung (~2022) Lung cancer Renal calculi Alcohol abuse Diverticulitis Iliac artery aneurysm Surgical History History of appendectomy (~1998) History of bowel resection (~1992) History of exploratory laparotomy (~2007) History of ERCP (~2017) History of abdominal surgery (~2017) History of bronchoscopy (~2022) History of colostomy reversal (~1992) Social History Household Members: Spouse Alcohol intake: current Alcohol intake frequency: former alcohol drinker Alcohol type: beer and hard liquor Patient Tobacco Use Status: Current everyday Tobacco user Tobacco use type: Cigarette service: No Review of Systems Const Denies fever(s), Denies night sweats and Reports weight loss ENT Reports no additional complaints, Denies dysphagia and Denies odynophagia Card Reports chest pain and Reports dyspnea on exertion Resp Denies chest congestion, Reports cough, Denies hemoptysis, Reports dyspnea on exertion and Denies wheezing GI Reports abdominal pain (RUQ pain), Denies belching, Denies melena, Denies bloating, Denies change in bowel habits, Denies dysphagia, Denies excessive flatus, Denies dyspepsia, Denies heartburn, Denies diarrhea, Denies loose stools, Denies nausea, Denies odynophagia and Denies vomiting Reports no additional complaints Musc Reports no additional complaints Skin/Breast Denies rash Neuro Reports no additional complaints Psych Reports no additional complaints Endo Reports no additional complaints Anirudh/Lymph Denies easy bleeding, Reports easy bruising and Denies lymphadenopathy Aller/Immun Denies wheezing Physical Exam Vital Signs: Last Vital Signs Pulse 85 08/15/23 13:52 Pulse Ox 97 08/15/23 13:52 Oxygen Delivery Method Room Air 08/15/23 13:52 BMI result Body Mass Index 27.1 Const General: healthy appearing, no acute distress and well developed Nutritional Appearance: well nourished Orientation/consciousness: patient oriented x3 HEENT Head: Yes normal to inspection, Yes normocephalic and Yes atraumatic Face and sinus: Yes normal facial exam Mouth: Normal oral and palatal mucosa present Throat: Yes posterior oropharynx normal, Yes tonsils normal and Yes uvula midline Eyes General: appearance normal, both eyes and all related structures Neck Neck: Yes normal visual inspection, Yes full ROM and Yes trachea midline Chest Chest palpation & inspection: normal inspection of the chest Resp Effort & Inspection: normal respiratory effort, no tracheal deviation and symmetric chest movement Auscultation: diminished lung sounds Cardio Rate: regular rate Heart sounds: S1 normal heart sound present and S2 normal heart sound present GI Other: Multiple large old scars to mid and right upper abdomen Inspection: Yes normal to inspection and No distended Palpation (GI): Soft to palpation, not firm and nontender Auscultation: normal bowel sounds General: Yes no CVA tenderness Back/Spine/Pelvis Back: no CVA tenderness Skin General skin exam: elasticity normal, turgor normal and dry skin Neuro General: patient oriented x3 Extrem General: Yes no clubbing, cyanosis or edema Psych Appearance: grossly normal Mental Status: mental status grossly normal Speech and movement: Normal speech and movement present Affect: normal affect Attitude: cooperative Thought process: Normal thought process present Assessment & Plan Assessment & Plan (1) Lung cancer: Comment: (RUL - Invasive squamous cell carcinoma, moderately differentiated - dx 04/2023) s/p resection Code(s): C34.90 - Malignant neoplasm of unspecified part of unspecified bronchus or lung Qualifiers: Laterality: right Lung location: upper lobe of lung Qualified Code(s): C34.11 - Malignant neoplasm of upper lobe, right bronchus or lung (2) Pneumonia: Code(s): J18.9 - Pneumonia, unspecified organism Qualifiers: Pneumonia type: due to unspecified organism Laterality: unspecified laterality Lung location: unspecified part of lung Qualified Code(s): J18.9 - Pneumonia, unspecified organism (3) COPD (chronic obstructive pulmonary disease): Code(s): J44.9 - Chronic obstructive pulmonary disease, unspecified Qualifiers: COPD type: chronic bronchitis Chronic bronchitis type: simple Qualified Code(s): J41.0 - Simple chronic bronchitis Plan continue oxygen while sleeping No oxygen with acitivity Overnight oximetry F/U with oncology F/U 3-4 months Orders: Orders Overnight Pulse Oximetry Today C34.90 - Malignant neoplasm of unspecified part of unspecified bronchus or lung Coding Level of Care Code Est Pt Level 4 (45889) Diagnoses Malignant neoplasm of upper lobe of right lung C34.11 Laterality: right Lung location: upper lobe of lung Pneumonia due to infectious organism, unspecified laterality, unspecified part of lung J18.9 Pneumonia type: due to unspecified organism Laterality: unspecified laterality Lung location: unspecified part of lung Simple chronic bronchitis J41.0 COPD type: chronic bronchitis Chronic bronchitis type: simple Time Spent (min) 17
== END 2023-08-15 14:38 | disposition home or self-care (01) ==
PROVIDERS: PCP Internal Medicine; Visit Provider Hospitalist
DX: C34.11 Malignant neoplasm of upper lobe, right bronchus or lung (principal); J18.9 Pneumonia, unspecified organism; J41.0 Simple chronic bronchitis
CPT/HCPCS: 99214

== ENCOUNTER → 2023-08-15 13:41 | Outpatient (BNVA) | payer MEDICARE, MEDICAID, SELFPAY | PROVIDERS: PCP Internal Medicine; Visit Provider Hospitalist | DX: C34.11 Malignant neoplasm of upper lobe, right bronchus or lung (principal); J18.9 Pneumonia, unspecified organism; J41.0 Simple chronic bronchitis | CPT/HCPCS: 99212 ==

== ENCOUNTER 2023-09-05 14:42 | Outpatient (REF) | payer MEDICARE, MEDICAID, SELFPAY ==
[2023-09-05 16:23] LABS: Iron 55 mcg/dL (45-160); Percent Iron Saturation 18 % (15-50); Total Iron Binding Capacity 314 mcg/dL (228-428); Unsaturated Iron Binding 259 ug/dL
[2023-09-05 16:37] LABS: Ferritin 42 ng/mL (20-250)
[2023-09-05 16:38] LABS: Prostate Specific Antigen 0.16 ng/mL (<0.05-4.0)
== END 2023-09-05 14:43 | disposition home or self-care (01) ==
LOC: HO.HHCL 14:42
PROVIDERS: Internal Medicine; Visit Provider Nurse Practitioner Family
DX: Z12.5 Encounter for screening for malignant neoplasm of prostate (principal); C34.91 Malignant neoplasm of unspecified part of right bronchus or lung; N40.0 Benign prostatic hyperplasia without lower urinary tract symptoms
CPT/HCPCS: 36415; 82728; 83540; 84153

== ENCOUNTER 2023-09-17 10:00 | Outpatient (RCR) | payer MEDICARE, MEDICAID, SELFPAY ==
[2023-05-21 14:12] VITALS: BP 99/57; PULSE 72; TEMP 36.4; O2SAT 93; BMI 27.2
--- NOTE | 2023-05-21 14:31 | P.CNHO_ITS ---
Subjective - Subjective Chief complaint: consult for: Squamous cell carcinoma of the lung. Patient: new to practice Consult date: 05/21/23 Requesting Physician: Dr. Christianson. Primary Care Provider: Vince Cosme MD Medical Summary: DIAGNOSIS: SQUAMOUS CELL CARCINOMA OF THE LUNG. HPI - Consult Narrative Reason for consult: Consult for: Squamous cell carcinoma of the lung. Narrative: Yuniel Monson is a 72 year old gentleman, referred by Dr. Christianson, on account of squamous cell carcinoma of the lung. He initially presented with right-sided chest pain radiating to the shoulder. He had anorexia and weight loss. He had been coughing but nonproductive in nature. On 01/08 he had a chest x-ray which revealed: Minimal residual linear atelectasis/scarring in the right upper lobe. No acute cardiopulmonary process. CT chest from 04/18/2023 revealed: New complete right upper lobe atelectasis. The right upper lobe bronchus. Underlying central mass should be considered. Bronchoscopy recommended. Prominent severe coronary artery calcification. Mild scattered areas of pleural thickening and pleural calcification, greatest at the lung bases. Clinically correlate for history of asbestos exposure. Aortic valve calcification. Dilated ascending thoracic aorta measuring 4.3 cm. Prominent mediastinal lymph nodes. Based on that abnormal CT scan he was referred to Pulmonary. He underwent bronchoscopy on 05/[address] Sung which revealed: There appeared to be concerning obstructing mass like density obstructing the right upper lobe airway. This was 100% blocked. The area appeared to be fungating and also appeared to be friable with some oozing with minimal manipulation. Otherwise the rest of the airways were clear. He did have evidence of chronic airway disease and also had increased mucoid secretions primarily in the left lung throughout. The bronchoscope was again navigated through the right upper lobe and bronchial washings were collected. In addition to that, forceps were used and endobronchial biopsies of the right upper lobe mass were obtained. The biopsies were placed in formalin. Try to opening up the areas as much as possible, but due to the extent of the tumor growth, it was unable to open up enough to provide an opening into the distal airways. Pathology revealed: Invasive squamous cell carcinoma, moderately differentiated. PDL1: 0. He has been started on antibiotics. PAST MEDICAL HISTORY: He was recently diagnosed with cirrhosis of the liver. He has been started on lactulose. FAMILY HISTORY: [facility] Dad alcoholism. 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 He is . He has 2 children a boy and a girl. He smokes a pack a day. He is a working alcoholic. ROS: He denies much fatigue. No fever however he has chills. No night sweats. Appetite is not that good. He has lost weight. Recently he has started taking supplements and feels hungry. He is down lb. He gets occasional cough and clear sputum. He has a upper abdominal pain. No nausea vomiting heartburn or indigestion. He has diarrhea related to lactulose. No dysuria or hematuria. He denies joint pain or muscle pain. No focal weakness. He denies depression. He has had some red spots on his arms. Review of Systems - Constitutional Reports system reviewed and no additional complaints, except as documented, Reports chills, Reports weight loss, Denies body ache(s), Denies fatigue, Denies fever(s), Denies headache(s), Denies lack of energy, Denies malaise - Eyes Reports system reviewed and no additional complaints, except as documented - ENT Reports system reviewed and no additional complaints, except as documented - Cardiovascular Reports system reviewed and no additional complaints, except as documented - Respiratory Reports no additional respiratory complaints - Gastrointestinal Reports system reviewed and no additional complaints, except as documented - Genitourinary Genitourinary: Reports no additional male genitourinary complaints - Musculoskeletal Reports system reviewed and no additional complaints, except as documented - Integumentary/Breasts Skin/Breast: Reports no additional skin complaints - Neurologic Reports system reviewed and no additional complaints, except as documented - Psychiatric Reports system reviewed and no additional complaints, except as documented - Endocrine Reports no additional endocrine complaints - Hematologic/Lymphatic Reports system reviewed and no additional complaints, except as documented - Allergic/Immunologic Reports system reviewed and no additional complaints, except as documented Oncology Screenings - ECOG Performance Status ECOG Performance Status: 1 [facility] Medical History: Medical History (Last Updated 05/23/23 @ 09:10 by Marika Desai PA-C) Alcohol abuse Diverticulitis Iliac artery aneurysm Lung cancer Renal calculi Squamous cell carcinoma of lung Onset Date: ~2022 Functional capacity: independent ambulation Surgical History: Surgical History (Last Updated 05/23/23 @ 09:10 by Marika Desai PA-C) History of abdominal surgery Onset Date: ~2017 History of appendectomy Onset Date: ~1998 History of bowel resection Onset Date: ~1992 History of bronchoscopy Onset Date: ~2022 History of colostomy reversal Onset Date: ~1992 History of ERCP Onset Date: ~2017 History of exploratory laparotomy Onset Date: ~2007 Social History: Social History (Last Updated 05/21/23 @ 14:14 by Elizabeth Quinn) Living Situation History: Household Members: Spouse Tobacco History: Patient Tobacco Use Status: Current everyday Tobacco Tobacco use type: Cigarette Occupation Assessmet: service: No Home Medications and Allergies Home Medications Medication Instructions Recorded Confirmed Type blood sugar diagnostic (FreeStyle #10 ea 04/06/22 05/21/23 History Lite Strips) lancets 28 gauge (FreeStyle #100 ea 04/06/22 05/21/23 History Lancets) metformin 500 mg tablet,extended 500 mg PO DAILY 04/06/22 05/21/23 History release 24 hr rosuvastatin 40 mg tablet 40 mg PO DAILY 04/06/22 05/21/23 History cyanocobalamin (vitamin B-12) 1,000 mcg PO DAILY 12/07/22 05/21/23 History 1,000 mcg tablet aspirin 81 mg tablet,delayed 81 mg PO DAILY 12/19/22 05/21/23 History release pantoprazole 40 mg tablet,delayed 40 mg PO DAILY@0630 12/19/22 05/21/23 History release oxycodone 5 mg tablet 5 mg PO Q8H PRN severe pain 04/23/23 05/21/23 History gabapentin 100 mg capsule 100 mg PO TID 05/03/23 05/21/23 History Allergies Allergy/AdvReac Type Severity Reaction Status Date / Time Iodinated Contrast Media Allergy Unknown Hives Verified 05/21/23 14:14 [IV Dye, Iodine Containing] Physical Exam Vital signs: Vital Signs Temp 97.6 F 05/21/23 14:12 Pulse 72 05/21/23 14:12 BP 99/57 L 05/21/23 14:12 Pulse Ox 93 05/21/23 14:12 O2 Del Method Room Air 05/21/23 14:12 Intake & Output 05/20/23 05/21/23 05/21/23 18:59 06:59 18:59 Other: Weight 76.5 kg Weight in Grams [id number] Weight 76.5 kg - Constitutional Present: mild distress - Routine HEENT Exam Head: Present: normal inspection, normocephalic ENT: Present: mucous membranes moist - Routine Neck Exam Present: supple - Routine Respiratory Exam Present: decreased breath sounds, CTAB - Routine Cardiovascular Exam Cardiovascular: Present: S1, S2 - Routine Abdominal Exam Present: soft, nontender - Routine Neurological Exam Present: alert, oriented X3 - Detailed Neurological Exam: Coma Scale Eye Opening: Spontaneous (4) Verbal Response: Oriented (5) Motor Response: Obeys commands (6) Kike Coma Scale Total: 15 - Routine Psychiatric Exam Present: depressed Hem/Onc Consult Result - Labs CBC & Chem 7: 05/21/23 14:39 05/21/23 14:39 Assessment and Plan Patient Active problem list reviewed?: Yes (1) Squamous cell carcinoma of lung Problem details: (RUL - Invasive squamous cell carcinoma, moderately differentiated - dx 04/2023) Status: Acute Assessment and plan: 72-year-old gentleman who was diagnosed recently with cirrhosis of the liver. He complained of pain in his right lower chest. CT chest from 04/18/2023 revealed: New complete right upper lobe atelectasis. The right upper lobe bronchus. Underlying central mass should be considered. Bronchoscopy recommended. Prominent severe coronary artery calcification. Mild scattered areas of pleural thickening and pleural calcification, greatest at the lung bases. Clinically correlate for history of asbestos exposure. Aortic valve calcification. Dilated ascending thoracic aorta measuring 4.3 cm. Prominent mediastinal lymph nodes. He underwent bronchoscopy on 05/[address] Sung which revealed: There appeared to be concerning obstructing mass like density obstructing the right upper lobe airway. This was 100% blocked. The area appeared to be fungating and also appeared to be friable with some oozing with minimal manipulation. Otherwise the rest of the airways were clear. He did have evidence of chronic airway disease and also had increased mucoid secretions p rimarily in the left lung throughout. The bronchoscope was again navigated through the right upper lobe and bronchial washings were collected. In addition to that, forceps were used and endobronchial biopsies of the right upper lobe mass were obtained. The biopsies were placed in formalin. Try to opening up the areas as much as possible, but due to the extent of the tumor growth, it was unable to open up enough to provide an opening into the distal airways. Pathology revealed: Invasive squamous cell carcinoma, moderately differentiated. PDL1: 0. He has been started on antibiotics. PLAN: To proceed with further staging workup. MRI of the brain was done on 05/22 and revealed: 1. Symmetric T2 hyperintensities within the hypothalamus, dorsal midbrain/danitza, superior cerebellar peduncles, middle cerebellar peduncles, and deep white matter of the cerebellar hemispheres. No demonstrated restricted diffusion, enhancement, or susceptibility artifact within these distributions. Findings are suggestive of an underlying nonspecific toxic/metabolic or neurodegenerative disorder. 2. No additional acute intracranial abnormalities. No abnormal intracranial enhancement. 3. Moderate underlying microangiopathy and generalized cerebral volume loss. PET scan was done on 05/31 at [facility] and revealed: Metabolically active right upper lobe pulmonary nodule with mild mediastinal jerry activity. He will be seen by thoracic surgery. Appointment with Dr. Yi is for 06/10, at [facility]. He will most likely be a candidate for a sleeve resection. He will return in a couple of weeks for a follow-up visit. All his questions were answered to satisfaction. Thank you, Cc: Dr. Christianson. Dr. Sung. . - Time Spent With Patient Time Spent with Patient (in minutes): 30
[2023-05-21 14:42] LABS: MANUAL DIFF FLAG NO
[2023-05-21 14:46] LABS: Basophils Percent Auto 0.6 % (0-2); Eosinophils Absolute Auto 0.2 X10*3/uL (0.0-0.4); Eosinophils Percent Auto 3.5 % (0-4); Hematocrit 32.7 % (42.0-52.0); Hemoglobin 10.9 g/dl (14.0-18.0); Imm Gran Abs Auto 0.01 X10*3/uL (0.00-0.03); Imm Gran Pct Auto 0.2 % (0.0-0.4); Lymphocytes Absolute Auto 1.5 X10*3/uL (1.2-4.9); Lymphocytes Percent Auto 23.3 % (20-40); Mean Corpuscular HGB Conc 33.3 g/dl (31.0-36.0); Mean Corpuscular Hemoglobin 31.1 pg (27.0-33.0); Mean Corpuscular Volume 93.4 fL (80.0-98.0); Mean Platelet Volume 10.9 fL (9.4-12.4); Monocytes Absolute Auto 0.6 X10*3/uL (0.1-1.2); Monocytes Percent Auto 9.5 % (2-11); Neutrophils Percent Auto 62.9 % (45-73); Red Cell Distribution Width 16.6 % (11.0-16.0); White Blood Count 6.3 X10*3/uL (4.8-10.8)
[2023-05-21 14:48] LABS: Platelet Count 88 X10*3/uL (160-400)
--- NOTE | 2023-05-21 14:58 | MHC.HEMONC ---
I met with patient and his dtr and [facility] following his appt with Dr Lane for newly diagnosed lung cancer. He is awaiting PET and we will see him after that. He has had a lot of imaging and procedures. He takes oxycodone for upper abdominal pain.
--- NOTE | 2023-05-21 14:59 | MHC.HEMONCMA ---
patient seen today for elevated esr/lung cancer, vss, following up with provider in 3 weeks
[2023-05-21 15:06] LABS: Alanine Aminotransferase 13 U/L (0-40); Albumin Level 2.8 g/dL (3.5-5.0); Alkaline Phosphatase 200 U/L (39-117); Anion Gap 11 (12-20); Aspartate Amino Transferase 30 U/L (5-37); Bilirubin Total 0.8 mg/dL (0.0-1.0); Blood Urea Nitrogen 16 mg/dL (9-16); Calcium 10.1 mg/dL (8.4-10.2); Carbon Dioxide 24 mmol/L (22-29); Chloride 108 mmol/L (96-108); Creatinine Clr Calc Pharmacy 58.5; Estimated Glomerular Filt Rate > 60; Glucose Random 124 mg/dL (60-115); Sodium 140 mmol/L (135-145); Total Protein 7.3 g/dL (6.5-8.0)
--- NOTE | 2023-05-22 09:44 | MHC.HEMONCMA ---
Per Crystal in MRI [id number] called and needed order put in OF for MRI brain/head wo/w con from Dr. Lane due to pcp one is wo con. I entered in OF for her and notified her it was complete.
[2023-06-13 10:59] VITALS: BP 116/66; PULSE 77; O2SAT 95; BMI 27.1
--- NOTE | 2023-06-13 11:08 | PM.HEMONCPN ---
Medical Summary - Medical Summary Date of Service: 06/13/23 Chief complaint: Follow-up for non-small cell lung carcinoma. Primary Care Provider: Vince Cosme MD Medical Summary: DIAGNOSIS: SQUAMOUS CELL CARCINOMA OF THE LUNG. Interval History Interval history: Yuniel Monson is a 72 year old gentleman, here for a follow-up visit. His only complaint is that he gets tired. He wants to go home and take a nap. No fever however he gets chills. No night sweats. He gets occasional cough and clear sputum. He has a upper abdominal pain. No nausea vomiting heartburn or indigestion. He has diarrhea related to lactulose. Appetite is not that good. He has lost weight. He has been taking supplements. His weight is up. No dysuria or hematuria. He denies joint pain or muscle pain. No focal weakness. He denies depression. He has had some red spots on his arms. PRESENTING HISTORY: He was referred by Dr. Christianson, on account of squamous cell carcinoma of the lung. He initially presented with right-sided chest pain radiating to the shoulder. He had anorexia and weight loss. He had been coughing but nonproductive in nature. On 01/08 he had a chest x-ray which revealed: Minimal residual linear atelectasis/scarring in the right upper lobe. No acute cardiopulmonary process. CT chest from 04/18/2023 revealed: New complete right upper lobe atelectasis. The right upper lobe bronchus. Underlying central mass should be considered. Bronchoscopy recommended. Prominent severe coronary artery calcification. Mild scattered areas of pleural thickening and pleural calcification, greatest at the lung bases. Clinically correlate for history of asbestos exposure. Aortic valve calcification. Dilated ascending thoracic aorta measuring 4.3 cm. Prominent mediastinal lymph nodes. Based on that abnormal CT scan he was referred to Pulmonary. He underwent bronchoscopy on 05/[address] Sung which revealed: There appeared to be concerning obstructing mass like density obstructing the right upper lobe airway. This was 100% blocked. The area appeared to be fungating and also appeared to be friable with some oozing with minimal manipulation. Otherwise the rest of the airways were clear. He did have evidence of chronic airway disease and also had increased mucoid secretions primarily in the left lung throughout. The bronchoscope was again navigated through the right upper lobe and bronchial washings were collected. In addition to that, forceps were used and endobronchial biopsies of the right upper lobe mass were obtained. The biopsies were placed in formalin. Try to opening up the areas as much as possible, but due to the extent of the tumor growth, it was unable to open up enough to provide an opening into the distal airways. Pathology revealed: Invasive squamous cell carcinoma, moderately differentiated. PDL1: 0. He has been started on antibiotics. PAST MEDICAL HISTORY: He was recently diagnosed with cirrhosis of the liver. He has been started on lactulose. FAMILY HISTORY: Mom is 97 [employer]. Dad alcoholism. SOCIAL HISTORY: He worked in a [employer]. He is . He has 2 children a boy and a girl. He smokes a pack a day. He is a working alcoholic. Review of Systems - Constitutional Reports no additional constitutional complaints, Denies anorexia, Reports fatigue, Denies fever(s), Reports lack of energy, Reports malaise, Denies weight loss - Eyes Reports no additional eye complaints - ENT Reports no additional ear, nose, mouth, and throat complaints - Cardiovascular Reports no additional cardiovascular complaints - Respiratory Reports no additional respiratory complaints - Gastrointestinal Reports no additional gastrointestinal complaints - Genitourinary Genitourinary: Reports no additional male genitourinary complaints - Musculoskeletal Reports no additional musculoskeletal complaints - Integumentary/Breasts Skin/Breast: Reports no additional skin complaints - Neurologic Reports no additional neurologic complaints, Denies headache(s) - Psychiatric Reports no additional psychiatric complaints - Endocrine Reports no additional endocrine complaints - Hematologic/Lymphatic Reports no additional hematologic/lymphatic complaints - Allergic/Immunologic Reports no additional allergic/immunologic complaints [facility] Medical History: Medical History (Last Reviewed 06/13/23 @ 11:00 by Elizabeth Quinn) Alcohol abuse Diverticulitis Iliac artery aneurysm Lung cancer Renal calculi Squamous cell carcinoma of lung Onset Date: ~2022 Functional capacity: independent ambulation Patient : No Surgical History: Surgical History (Last Reviewed 06/13/23 @ 11:00 by Elizabeth Quinn) History of abdominal surgery Onset Date: ~2017 History of appendectomy Onset Date: ~1998 History of bowel resection Onset Date: ~1992 History of bronchoscopy Onset Date: ~2022 History of colostomy reversal Onset Date: ~1992 History of ERCP Onset Date: ~2017 History of exploratory laparotomy Onset Date: ~2007 Social History: Social History (Last Reviewed 06/13/23 @ 11:00 by Elizabeth Quinn) Living Situation History: Household Members: Spouse Tobacco History: Patient Tobacco Use Status: Current everyday Tobacco Tobacco use type: Cigarette Occupation Assessmet: service: No Oncology Screenings - ECOG Performance Status ECOG Performance Status: 0 Home Medications and Allergies Home Medications Medication Instructions Recorded Confirmed Type blood sugar diagnostic (FreeStyle #10 ea 04/06/22 06/13/23 History Lite Strips) lancets 28 gauge (FreeStyle #100 ea 04/06/22 06/13/23 History Lancets) metformin 500 mg tablet,extended 500 mg PO DAILY 04/06/22 06/13/23 History release 24 hr rosuvastatin 40 mg tablet 40 mg PO DAILY 04/06/22 06/13/23 History cyanocobalamin (vitamin B-12) 1,000 mcg PO DAILY 12/07/22 06/13/23 History 1,000 mcg tablet aspirin 81 mg tablet,delayed 81 mg PO DAILY 12/19/22 06/13/23 History release pantoprazole 40 mg tablet,delayed 40 mg PO DAILY@0630 12/19/22 06/13/23 History release oxycodone 5 mg tablet 5 mg PO Q8H PRN severe pain 04/23/23 06/13/23 History gabapentin 100 mg capsule 100 mg PO TID 05/03/23 06/13/23 History Allergies Allergy/AdvReac Type Severity Reaction Status Date / Time Iodinated Contrast Media Allergy Unknown Hives Verified 05/21/23 14:14 [IV Dye, Iodine Containing] Exam Vital signs: Vital Signs Temp 97.6 F 05/21/23 14:12 Pulse 77 06/13/23 10:59 BP 116/66 06/13/23 10:59 Pulse Ox 95 06/13/23 10:59 O2 Del Method Room Air 06/13/23 10:59 Intake & Output 06/12/23 06/13/23 06/13/23 18:59 06:59 18:59 Other: Weight 76.3 kg Weight in Grams [id number] Weight 76.3 kg BMI result Body Mass Index 27.1 - Constitutional Present: mild distress - Routine HEENT Exam Head: Present: normal inspection, normocephalic Eye: Present: normal appearance ENT: Present: mucous membranes moist - Routine Neck Exam Present: full ROM - Routine Respiratory Exam Present: decreased breath sounds, CTAB - Routine Cardiovascular Exam Cardiovascular: Present: S1, S2 - Routine Abdominal Exam Present: soft, nontender - Routine Extremities Exam Present: nontender - Routine Back/Spine/Pelvis Exam Back/Spine: Present: full ROM - Routine Skin Exam Present: intact - Routine Neurological Exam Present: alert, oriented X3 - Detailed Neurological Exam: Coma Scale Eye Opening: Spontaneous (4) - Routine Psychiatric Exam Present: normal affect Data - Labs CBC & Chem 7: 05/21/23 14:39 05/21/23 14:39 Labs: 05/21/23 14:39 CEA [Carcinoembryonic Antigen] Routine Complete Blood Count Auto Diff Stat Comprehensive Met. Panel Stat Laboratory Last Values WBC 6.3 X10*3/uL (4.8-10.8) 05/21/23 14:39 RBC 3.50 X10*6/uL (4.60-5.80) L 05/21/23 14:39 Hgb 10.9 g/dl (14.0-18.0) L 05/21/23 14:39 Hct 32.7 % (42.0-52.0) L 05/21/23 14:39 MCV 93.4 fL (80.0-98.0) 05/21/23 14:39 MCH 31.1 pg (27.0-33.0) 05/21/23 14:39 MCHC 33.3 g/dl (31.0-36.0) 05/21/23 14:39 RDW 16.6 % (11.0-16.0) H 05/21/23 14:39 Plt Count 88 X10*3/uL (160-400) L D 05/21/23 14:39 MPV 10.9 fL (9.4-12.4) 05/21/23 14:39 Immature Gran % (Auto) 0.2 % (0.0-0.4) 05/21/23 14:39 Neut % (Auto) 62.9 % (45-73) 05/21/23 14:39 Lymph % (Auto) 23.3 % (20-40) 05/21/23 14:39 [place] % (Auto) 9.5 % (2-11) 05/21/23 14:39 Eos % (Auto) 3.5 % (0-4) 05/21/23 14:39 Baso % (Auto) 0.6 % (0-2) 05/21/23 14:39 Lymph # (Auto) 1.5 X10*3/uL (1.2-4.9) 05/21/23 14:39 [place] # (Auto) 0.6 X10*3/uL (0.1-1.2) 05/21/23 14:39 Eos # (Auto) 0.2 X10*3/uL (0.0-0.4) 05/21/23 14:39 Baso # (Auto) 0.0 X10*3/uL (0.0-0.2) 05/21/23 14:39 Abs Immat Gran (auto) 0.01 X10*3/uL (0.00-0.03) 05/21/23 14:39 Absolute Neuts (auto) 4.0 x10*3/uL (2.0-8.3) 05/21/23 14:39 Absolute Nucleated RBC 0.000 X10*3/uL (0.0-0.012) 05/21/23 14:39 Nucleated RBC % (auto) 0.0 /100WBC (0.0-0.2) 05/21/23 14:39 Sodium 140 mmol/L (135-145) 05/21/23 14:39 Potassium 3.0 mmol/L (3.3-5.1) L D 05/21/23 14:39 Chloride 108 mmol/L (96-108) 05/21/23 14:39 Carbon Dioxide 24 mmol/L (22-29) 05/21/23 14:39 Anion Gap 11 (12-20) L 05/21/23 14:39 BUN 16 mg/dL (9-16) 05/21/23 14:39 Creatinine 1.06 mg/dL (0.5-1.4) 05/21/23 14:39 Estim Creat Clear Calc 58.5 05/21/23 14:39 Estimated GFR > 60 05/21/23 14:39 Random Glucose 124 mg/dL (60-115) H 05/21/23 14:39 Calcium 10.1 mg/dL (8.4-10.2) 05/21/23 14:39 Total Bilirubin 0.8 mg/dL (0.0-1.0) 05/21/23 14:39 AST 30 U/L (5-37) 05/21/23 14:39 ALT 13 U/L (0-40) 05/21/23 14:39 Alkaline Phosphatase 200 U/L (39-117) H 05/21/23 14:39 Total Protein 7.3 g/dL (6.5-8.0) 05/21/23 14:39 Albumin 2.8 g/dL (3.5-5.0) L 05/21/23 14:39 Carcinoembryonic Ag 5.90 ng/mL 05/21/23 14:39 Assessment and Plan Patient Active problem list reviewed?: Yes (1) Squamous cell carcinoma of lung Problem details: (RUL - Invasive squamous cell carcinoma, moderately differentiated - dx 04/2023) Status: Acute Assessment and plan: 72-year-old gentleman who was diagnosed recently with cirrhosis of the liver. He complained of pain in his right lower chest. CT chest from 04/18/2023 revealed: New complete right upper lobe atelectasis. The right upper lobe bronchus. Underlying central mass should be considered. Bronchoscopy recommended. Prominent severe coronary artery calcification. Mild scattered areas of pleural thickening and pleural calcification, greatest at the lung bases. Clinically correlate for history of asbestos exposure. Aortic valve calcification. Dilated ascending thoracic aorta measuring 4.3 cm. Prominent mediastinal lymph nodes. He underwent bronchoscopy on 05/[address] Sung which revealed: There appeared to be concerning obstructing mass like density obstructing the right upper lobe airway. This was 100% blocked. The area appeared to be fungating and also appeared to be friable with some oozing with minimal manipulation. Otherwise the rest of the airways were clear. He did have evidence of chronic airway disease and also had increased mucoid secretions primarily in the left lung throughout. The bronchoscope was again navigated through the right upper lobe and bronchial washings were collected. In addition to that, forceps were used and endobronchial biopsies of the right upper lobe mass were obtained. The biopsies were placed in formalin. Try to opening up the areas as much as possible, but due to the extent of the tumor growth, it was unable to open up enough to provide an opening into the distal airways. Pathology revealed: Invasive squamous cell carcinoma, moderately differentiated. PDL1: 0. He has been started on antibiotics. I proceed with further staging workup. MRI of the brain was done on 05/22 and revealed: 1. Symmetric T2 hyperintensities within the hypothalamus, dorsal midbrain/danitza, superior cerebellar peduncles, middle cerebellar peduncles, and deep white matter of the cerebellar hemispheres. No demonstrated restricted diffusion, enhancement, or susceptibility artifact within these distributions. Findings are suggestive of an underlying nonspecific toxic/metabolic or neurodegenerative disorder. 2. No additional acute intracranial abnormalities. No abnormal intracranial enhancement. 3. Moderate underlying microangiopathy and generalized cerebral volume loss. PET scan was done on 05/31 at [facility] and revealed: Metabolically active right upper lobe pulmonary nodule with mild mediastinal jerry activity. PLAN: He was seen by thoracic surgery, Dr. Yi. at [facility]. He is a candidate for a sleeve resection. This is scheduled for 06/27. Will review the pathology after surgery and see if he needs any adjuvant treatment. He will return in a month for a follow-up visit. All his questions were answered to satisfaction. Thank you, Cc: Dr. Christianson. Dr. Sung. . - Time Spent With Patient Time Spent with Patient (in minutes): 25
[2023-09-03 14:59] VITALS: BP 111/64; PULSE 74; O2SAT 97
[2023-09-03 15:02] LABS: MANUAL DIFF FLAG NO
[2023-09-03 15:09] LABS: Basophils Percent Auto 0.6 % (0-2); Eosinophils Absolute Auto 0.2 X10*3/uL (0.0-0.4); Eosinophils Percent Auto 4.3 % (0-4); Hematocrit 32.5 % (42.0-52.0); Hemoglobin 10.5 g/dl (14.0-18.0); Imm Gran Abs Auto 0.01 X10*3/uL (0.00-0.03); Imm Gran Pct Auto 0.2 % (0.0-0.4); Lymphocytes Absolute Auto 1.4 X10*3/uL (1.2-4.9); Lymphocytes Percent Auto 26.5 % (20-40); Mean Corpuscular HGB Conc 32.3 g/dl (31.0-36.0); Mean Corpuscular Hemoglobin 29.6 pg (27.0-33.0); Mean Corpuscular Volume 91.5 fL (80.0-98.0); Mean Platelet Volume 10.1 fL (9.4-12.4); Monocytes Absolute Auto 0.7 X10*3/uL (0.1-1.2); Monocytes Percent Auto 13.5 % (2-11); Neutrophils Absolute Auto 2.9 x10*3/uL (2.0-8.3); Neutrophils Percent Auto 54.9 % (45-73); Red Blood Count 3.55 X10*6/uL (4.60-5.80); Red Cell Distribution Width 15.8 % (11.0-16.0); White Blood Count 5.3 X10*3/uL (4.8-10.8)
[2023-09-03 15:10] LABS: Platelet Count 90 X10*3/uL (160-400)
[2023-09-03 15:20] LABS: Alanine Aminotransferase 18 U/L (0-40); Albumin Level 3.3 g/dL (3.5-5.0); Alkaline Phosphatase 152 U/L (39-117); Anion Gap 12 (12-20); Aspartate Amino Transferase 31 U/L (5-37); Bilirubin Total 0.7 mg/dL (0.0-1.0); Blood Urea Nitrogen 9 mg/dL (9-16); Calcium 9.5 mg/dL (8.4-10.2); Carbon Dioxide 22 mmol/L (22-29); Chloride 108 mmol/L (96-108); Creatinine Clr Calc Pharmacy 58.7; Estimated Glomerular Filt Rate > 60; Glucose Random 164 mg/dL (60-115); Potassium 3.2 mmol/L (3.3-5.1); Sodium 139 mmol/L (135-145)
--- NOTE | 2023-09-03 15:35 | MHC.HEMONCMA ---
patient seen today for elevated esr, vss, labs, following up with provider in 1 week for chemo teach
--- NOTE | 2023-09-03 17:20 | PM.HEMONCPN ---
Medical Summary - Medical Summary Date of Service: 09/03/23 Chief complaint: Follow-up for: Squamous cell carcinoma the lung. Primary Care Provider: Vince Cosme MD Medical Summary: DIAGNOSIS: SQUAMOUS CELL CARCINOMA OF THE LUNG. CURRENT THERAPY: Status post right upper sleeve lobectomy and lymph node, right level 10 biopsy. Pathology: Invasive squamous cell carcinoma. Tumor focality: Single focus. Tumor size: 3.5 x 3 x 2 cm. Histologic pattern: A it and I zinc squamous cell carcinoma. Spread through air spaces: Not identified. Visceral pleural nasion: Not identified. Direct invasion of adjacent structures: Negative. LV I: Not identified. Margins: All margins negative for carcinoma. Lymph nodes: Tumor present in 2/10 lymph nodes. Lexa site: Hilar, intraparenchymal, right level 10. TNM:pT2,b,pN1. Biomarkers studies: PDL1: No PDL1 expression. CPS: 0%. Interval History Interval history: Yuniel Monson is a 72 year old gentleman, here for a follow-up visit. He did well with the surgery. However he did have a santiago postop course with the stay in ICU. He had developed bacterial pneumonia. Only thing is he still has some pain at the surgical site. He is taking oxycodone which helps. He was on oxygen after the surgery for about a month. He was on 2 L. This was discontinued this month. His only other complaint is that he gets tired. No fever/no chills. No night sweats. He gets occasional cough and clear sputum. He denies abdominal pain. No nausea vomiting heartburn or indigestion. He has diarrhea related to lactulose. Appetite is good. He has gained weight. He has been taking supplements. No dysuria or hematuria. He denies joint pain or muscle pain. No focal weakness. He denies depression. He has had some red spots on his arms. PRESENTING HISTORY: He was referred by Dr. Christianson, on account of squamous cell carcinoma of the lung. He initially presented with right-sided chest pain radiating to the shoulder. He had anorexia and weight loss. He had been coughing but nonproductive in nature. On 01/08 he had a chest x-ray which revealed: Minimal residual linear atelectasis/scarring in the right upper lobe. No acute cardiopulmonary process. CT chest from 04/18/2023 revealed: New complete right upper lobe atelectasis. The right upper lobe bronchus. Underlying central mass should be considered. Bronchoscopy recommended. Prominent severe coronary artery calcification. Mild scattered areas of pleural thickening and pleural calcification, greatest at the lung bases. Clinically correlate for history of asbestos exposure. Aortic valve calcification. Dilated ascending thoracic aorta measuring 4.3 cm. Prominent mediastinal lymph nodes. Based on that abnormal CT scan he was referred to Pulmonary. He underwent bronchoscopy on 05/[address] Sung which revealed: There appeared to be concerning obstructing mass like density obstructing the right upper lobe airway. This was 100% blocked. The area appeared to be fungating and also appeared to be friable with some oozing with minimal manipulation. Otherwise the rest of the airways were clear. He did have evidence of chronic airway disease and also had increased mucoid secretions primarily in the left lung throughout. The bronchoscope was again navigated through the right upper lobe and bronchial washings were collected. In addition to that, forceps were used and endobronchial biopsies of the right upper lobe mass were obtained. The biopsies were placed in formalin. Try to opening up the areas as much as possible, but due to the extent of the tumor growth, it was unable to open up enough to provide an opening into the distal airways. Pathology revealed: Invasive squamous cell carcinoma, moderately differentiated. PDL1: 0. He has been started on antibiotics. PAST MEDICAL HISTORY: He was recently diagnosed with cirrhosis of the liver. He has been started on lactulose. FAMILY HISTORY: Mom is [address] [employer]. Dad alcoholism. 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 He is . He has 2 children a boy and a girl. He smokes a pack a day. He is a working alcoholic. Review of Systems - Constitutional Reports system reviewed and no additional complaints, except as documented, Reports weight gain, Denies fatigue, Denies lack of energy, Denies malaise, Denies night sweats, Denies poor appetite - Eyes Reports system reviewed and no additional complaints, except as documented - ENT Reports system reviewed and no additional complaints, except as documented - Cardiovascular Reports system reviewed and no additional complaints, except as documented - Respiratory Reports no additional respiratory complaints - Gastrointestinal Reports system reviewed and no additional complaints, except as documented - Genitourinary Genitourinary: Reports no additional male genitourinary complaints - Musculoskeletal Reports system reviewed and no additional complaints, except as documented - Integumentary/Breasts Skin/Breast: Reports no additional skin complaints - Neurologic Reports system reviewed and no additional complaints, except as documented, Denies headache(s) - Psychiatric Reports system reviewed and no additional complaints, except as documented - Endocrine Reports no additional endocrine complaints - Hematologic/Lymphatic Reports system reviewed and no additional complaints, except as documented - Allergic/Immunologic Reports system reviewed and no additional complaints, except as documented [facility] Medical History: Medical History (Last Reviewed 09/21/23 @ 20:35 by Dottie Henry MD) Alcohol abuse COPD (chronic obstructive pulmonary disease) Diverticulitis Iliac artery aneurysm Lung cancer Pneumonia Renal calculi Squamous cell carcinoma of lung Onset Date: ~2022 Functional capacity: independent ambulation Patient : No Surgical History: Surgical History (Last Reviewed 09/21/23 @ 20:35 by Dottie Henry MD) History of abdominal surgery Onset Date: ~2017 History of appendectomy Onset Date: ~1998 History of bowel resection Onset Date: ~1992 History of bronchoscopy Onset Date: ~2022 History of colostomy reversal Onset Date: ~1992 History of ERCP Onset Date: ~2017 History of exploratory laparotomy Onset Date: ~2007 Social History: Social History (Last Reviewed 09/21/23 @ 20:35 by Dottie Henry MD) Living Situation History: Household Members: Spouse Alcohol History Details: 1. How often do you have a drink containing alcohol?: a. Never Tobacco History: Patient Tobacco Use Status: Current everyday Tobacco Tobacco use type: Cigarette Smoked in Last 30 Days: No Advance Directives: Advance Directives: No Advance Directives Information Provided: No Occupation Assessmet: service: No Oncology Screenings - ECOG Performance Status ECOG Performance Status: 0 Home Medications and Allergies Home Medications Medication Instructions Recorded Confirmed Type blood sugar diagnostic (FreeStyle #10 ea 04/06/22 09/03/23 History Lite Strips) lancets 28 gauge (FreeStyle #100 ea 04/06/22 09/03/23 History Lancets) metformin 500 mg tablet,extended 500 mg PO DAILY 04/06/22 09/03/23 History release 24 hr rosuvastatin 40 mg tablet 40 mg PO DAILY 04/06/22 09/03/23 History cyanocobalamin (vitamin B-12) 1,000 mcg PO DAILY 12/07/22 09/03/23 History 1,000 mcg tablet aspirin 81 mg tablet,delayed 81 mg PO DAILY 12/19/22 09/03/23 History release pantoprazole 40 mg tablet,delayed 40 mg PO DAILY@0630 12/19/22 09/03/23 History release oxycodone 5 mg tablet 5 mg PO Q8H PRN severe pain 04/23/23 09/03/23 History gabapentin 100 mg capsule 100 mg PO TID 05/03/23 09/03/23 History Allergies Allergy/AdvReac Type Severity Reaction Status Date / Time Iodinated Contrast Media Allergy Unknown Hives Verified 09/21/23 18:24 [IV Dye, Iodine Containing] Exam Vital signs: Vital Signs Temp 97.6 F 05/21/23 14:12 Pulse 74 09/03/23 14:59 BP 111/64 09/03/23 14:59 Pulse Ox 97 09/03/23 14:59 O2 Del Method Room Air 09/03/23 14:59 Weight 76.3 kg BMI result Body Mass Index 27.1 - Constitutional Present: mild distress - Routine HEENT Exam Head: Present: normal inspection, normocephalic Eye: Present: normal appearance ENT: Present: mucous membranes moist - Routine Neck Exam Present: full ROM - Routine Respiratory Exam Present: decreased breath sounds, CTAB - Routine Cardiovascular Exam Cardiovascular: Present: S1, S2 - Routine Abdominal Exam Present: soft, nontender - Routine Extremities Exam Present: nontender - Routine Back/Spine/Pelvis Exam Back/Spine: Present: full ROM - Routine Skin Exam Present: intact - Routine Neurological Exam Present: alert, oriented X3 - Detailed Neurological Exam: Coma Scale Eye Opening: Spontaneous (4) - Routine Psychiatric Exam Present: normal affect Data - Labs CBC & Chem 7: 09/16/23 09:24 09/16/23 09:24 Assessment and Plan Patient Active problem list reviewed?: Yes (1) Squamous cell carcinoma of lung Problem details: (RUL - Invasive squamous cell carcinoma, moderately differentiated - dx 04/2023) Status: Acute Assessment and plan: 72-year-old gentleman who was diagnosed recently with cirrhosis of the liver. He complained of pain in his right lower chest. CT chest from 04/18/2023 revealed: New complete right upper lobe atelectasis. The right upper lobe bronchus. Underlying central mass should be considered. Bronchoscopy recommended. Prominent severe coronary artery calcification. Mild scattered areas of pleural thickening and pleural calcification, greatest at the lung bases. Clinically correlate for history of asbestos exposure. Aortic valve calcification. Dilated ascending thoracic aorta measuring 4.3 cm. Prominent mediastinal lymph nodes. He underwent bronchoscopy on 05/[address] Sung which revealed: There appeared to be concerning obstructing mass like density obstructing the right upper lobe airway. This was 100% blocked. The area appeared to be fungating and also appeared to be friable with some oozing with minimal manipulation. Otherwise the rest of the airways were clear. He did have evidence of chronic airway disease and also had increased mucoid secretions primarily in the left lung throughout. The bronchoscope was again navigated through the right upper lobe and bronchial washings were collected. In addition to that, forceps were used and endobronchial biopsies of the right upper lobe mass were obtained. The biopsies were placed in formalin. Try to opening up the areas as much as possible, but due to the extent of the tumor growth, it was unable to open up enough to provide an opening into the distal airways. Pathology revealed: Invasive squamous cell carcinoma, moderately differentiated. PDL1: 0. He was started on antibiotics. I proceed with further staging workup. MRI of the brain was done on 05/22 and revealed: 1. Symmetric T2 hyperintensities within the hypothalamus, dorsal midbrain/danitza, superior cerebellar peduncles, middle cerebellar peduncles, and deep white matter of the cerebellar hemispheres. No demonstrated restricted diffusion, enhancement, or susceptibility artifact within these distributions. Findings are suggestive of an underlying nonspecific toxic/metabolic or neurodegenerative disorder. 2. No additional acute intracranial abnormalities. No abnormal intracranial enhancement. 3. Moderate underlying microangiopathy and generalized cerebral volume loss. PET scan was done on 05/31 at [facility] and revealed: Metabolically active right upper lobe pulmonary nodule with mild mediastinal lexa activity. He had surgery done by, Dr. Yi. at [facility], on 06/27. Status post right upper sleeve lobectomy and lymph node, right level 10 biopsy. Pathology: Invasive squamous cell carcinoma. Tumor focality: Single focus. Tumor size: 3.5 x 3 x 2 cm. Histologic pattern: A it and I zinc squamous cell carcinoma. Spread through air spaces: Not identified. Visceral pleural nasion: Not identified. Direct invasion of adjacent structures: Negative. LV I: Not identified. Margins: All margins negative for carcinoma. Lymph nodes: Tumor present in 2/10 lymph nodes. Lexa site: Hilar, intraparenchymal, right level 10. TNM:pT2,b,pN1. Biomarkers studies: PDL1: No PDL1 expression. CPS: 0%. . PLAN: He is a candidate for adjuvant treatment. Will treat with Carboplatin and Taxol X 4 cycles. He will return in a week for chemo therapy teaching, and a follow-up visit. All his questions were answered to satisfaction. Thank you, Cc: Dr. Christianson. Dr. Sung. . - Time Spent With Patient Time Spent with Patient (in minutes): 30
--- NOTE | 2023-09-06 10:01 | HE.ONCSEC ---
LVM reminding pt of appt on 12/10/22
[2023-09-09 12:23] VITALS: BMI 24.8
--- NOTE | 2023-09-09 13:43 | HO.HEMONCPA ---
NO PA NEEDED FOR PACLITAXEL J9267, CARBOPLATIN J9045 OR Pegfilgrastim/Neulasta ? [id number] COVERED UNDER MEDICARE PART B
--- NOTE | 2023-09-09 16:24 | MHC.HEMONC ---
Pt arrived for sched chemo teach appt, will be receiving Paclitaxel and Carboplatin, accompanied by angelica Reilly, also present was [facility] [place] respiratory therapist Sarah for [place]-language translation. Nurse reviewed tx schedule w/ pt, need for pre-tx lab draws to monitor effects on blood counts, kidneys, and liver, reviewed possible side-effects and possible infusion reactions for these drugs, as well as drugs given prophylactically to prevent these, emphasized the importance of communicating any changes w/ tx team, explained that all tx plans are tentative, plans may be changed, txs may be delayed or med doses reduced in response to pt tolerance or lab results. Pt's granddaughter Rosemary arrived for end of teaching, alerted nurse to pt's recent low platelet counts, as well as baseline hypotension. Nurse notified Dr. Lane of Plt count of 90 on 09/03, also that pt has not had Hep B tested since a year ago. Nurse requested LEVI Ross check for PA. Nurse provided pt and anibalsparkle Melba w/ documentation in both French and [place]. Nurse updated pt's contact list per his request, making quitasparkle Melba his primary contact. Pt departed, informed he'd be contacted once PA is obtained. Later in day, Vandana informed this nurse that pt's insurance does not require PA. Nurse called pt's angelica Reilly, no answer, left detailed VM informing her that nursing would like to schedule pt's first tx w/ Paclitaxel/Carboplatin for next Sat, 09/17 at 10am, also requested that pt come in earlier that day or the day beforehand, as Dr. Lane would like to re-check platelet count and check Hep B just before tx begins. Nurse left CB#, to notify chemo pharmacist of new start once pt and family confirms this date/time.
[2023-09-16 09:26] LABS: MANUAL DIFF FLAG NO
[2023-09-16 09:40] LABS: Basophils Percent Auto 0.8 % (0-2); Eosinophils Absolute Auto 0.2 X10*3/uL (0.0-0.4); Eosinophils Percent Auto 3.7 % (0-4); Hematocrit 35.6 % (42.0-52.0); Hemoglobin 11.5 g/dl (14.0-18.0); Imm Gran Abs Auto 0.01 X10*3/uL (0.00-0.03); Imm Gran Pct Auto 0.2 % (0.0-0.4); Lymphocytes Absolute Auto 1.4 X10*3/uL (1.2-4.9); Lymphocytes Percent Auto 26.2 % (20-40); Mean Corpuscular HGB Conc 32.3 g/dl (31.0-36.0); Mean Corpuscular Hemoglobin 30.2 pg (27.0-33.0); Mean Corpuscular Volume 93.4 fL (80.0-98.0); Mean Platelet Volume 11.2 fL (9.4-12.4); Monocytes Absolute Auto 0.5 X10*3/uL (0.1-1.2); Monocytes Percent Auto 9.3 % (2-11); Neutrophils Absolute Auto 3.1 x10*3/uL (2.0-8.3); Neutrophils Percent Auto 59.8 % (45-73); Red Blood Count 3.81 X10*6/uL (4.60-5.80); Red Cell Distribution Width 16.8 % (11.0-16.0); White Blood Count 5.2 X10*3/uL (4.8-10.8)
[2023-09-16 09:41] LABS: Platelet Count 96 X10*3/uL (160-400)
[2023-09-16 09:51] LABS: Alanine Aminotransferase 20 U/L (0-40); Albumin Level 3.4 g/dL (3.5-5.0); Alkaline Phosphatase 164 U/L (39-117); Anion Gap 12 (12-20); Aspartate Amino Transferase 34 U/L (5-37); Bilirubin Total 0.8 mg/dL (0.0-1.0); Blood Urea Nitrogen 11 mg/dL (9-16); Carbon Dioxide 24 mmol/L (22-29); Chloride 110 mmol/L (96-108); Creatinine Clr Calc Pharmacy 48.9; Estimated Glomerular Filt Rate 57; Glucose Random 244 mg/dL (60-115); Sodium 142 mmol/L (135-145)
[2023-09-16 10:15] LABS: HBS Num1 136.81 mIU/mL (0-7.99); HBc Num1 6.03 S/CO (0.00-0.79); HBsAGNum1 0.54 S/CO (0.00-0.99); Hepatitis B Surface Antigen Negative (Negative); ~Hepatitis B Surface Antibody REACTIVE (Nonreactive)
--- NOTE | 2023-09-16 17:14 | MHC.HEMONC ---
Pt was in today for pre-chemo labs, had blood drawn peripherally, nurse informed Dr. Lane that his platelet count improved from 90 last week to 96 today w/ no intervention, she approved his receiving 1st tx of 3 hr paclitaxel w/ carboplatin tomorrow morning, to re-check pt's labs the following week. Nurse called pt's primary contact, angelica Reilly, no answer, and also angelica Riley, no answer, left detailed VMs for both w/ CB #s, informing them that pt is approved for tx tomorrow.
[2023-09-17 06:23] LABS: HBc Num2 6.22 S/CO; HBc Num3 6.52 S/CO; Hepatitis B Core Antibody Reactive (Nonreactive)
[2023-09-17 09:34] VITALS: BP 117/66; PULSE 89; RESP 18; TEMP 36.6; O2SAT 98; BMI 24.8
[2023-09-17] MEDS: Fosaprepitant Dimeglumine 150 MG in 0.9 % Sodium Chloride 145 ML 300 MG IV (10:07)
[2023-09-17] MEDS: Acetaminophen 325 MG TABLET 650 MG PO (10:19)
[2023-09-17] MEDS: diphenhydrAMINE HCL 50 MG/ML VIAL 25 MG IVPUSH (10:20)
[2023-09-17] MEDS: dexAMETHasone sod phosphate/NS 12 MG/50 ML PIGGYBACK 200 MG IV (10:21)
[2023-09-17] MEDS: Famotidine/PF 20 MG/2 ML VIAL IVPUSH (11:06)
--- NOTE | 2023-09-17 14:22 | MHC.HEMONC ---
Pt was in for C1D1 Paclitaxel (3 hr)/Carboplatin, labs draw yesterday, no PA needed, VSS, Dr. Lane approved tx today, is aware of Platelet count of 96, which is improved from previous week. Pt was booked to return for f/u labs 1 week later. Pt's grnddtr was in at start, pt signed form declining use of hospital slot tag inserter, used angelica Reilly as slot tag inserter to sign consent to tx, Dr. Lane signed as well. Nurse Sri placed 24g PIV to pt's Left FA, w/ positive blood return. Pt was admin pre-meds: PO tylenol, IV Emend, IV Dexamethasone, IV Zofran, IV Benadryl, and IV Pepcid. Pt was educated to notify nursing of any signs of reaction, was admin Paclitaxel over 3 hrs and Carbo over 30 min, tolerated both well. Pt's PIV was flushed w/ NS and removed. Pt was given d/c ppw, Dr. Lane sent scrip for Dexamethasone 4mg BID, educated pt and pt's grddtr to have pt take 4mg twice a day on day after chemo and day after that, then stop. Pt to return 09/23 for f/u labs, next tx on 10/07/23.
[2023-09-17] MEDS: SODIUM CHLORIDE 0.9% IV (14:58)
[2023-09-17] MEDS: CARBOPLATIN IV (14:58)
== END 2023-09-25 | disposition home or self-care (01) ==
LOC: HO.ONC 10:00
PROVIDERS: PCP Internal Medicine; Visit Provider Internal Medicine Medical Oncology
DX: Z51.11 Encounter for antineoplastic chemotherapy (principal); C34.11 Malignant neoplasm of upper lobe, right bronchus or lung; Z11.59 Encounter for screening for other viral diseases; Z72.89 Other problems related to lifestyle
CPT/HCPCS: 36415; 80053; 82378; 85025; 86704; 86706; 87340; 96366; 96367; 96375; 96413; 96415; 96417; 99204; 99211; 99213; 99214; J1100; J1200; J1453; J2405; J9045; J9267

== ENCOUNTER 2023-09-21 18:04 | Inpatient (IN) | payer MEDICARE, MEDICAID, SELFPAY ==
--- NOTE | ~2023-09-21 | XR_ITS ---
EXAMINATION: XR CHEST CLINICAL INFORMATION: Fever/hypotension COMPARISON: Portable chest 09/24/2023 3:42 AM TECHNIQUE: AP upright portable view of the chest was obtained. 9:13 AM FINDINGS: The patient is rotated. Lung volumes are low. The cardiomediastinal silhouette is stable. There appears to be scarring at the right lung base. There is no focal consolidation or pleural effusion. No pneumothorax. Multiple right rib fractures are again seen. Evidence of bilateral rotator cuff tears XR/XR chest 1V IMPRESSION: No significant interval change.
--- NOTE | ~2023-09-21 | XR_ITS ---
EXAMINATION: XR CHEST CLINICAL INFORMATION: Dyspnea. COMPARISON: 09/21/2023. TECHNIQUE: Frontal view of the chest was obtained. FINDINGS: The lung volumes are low. The cardiomediastinal silhouette is stable. There appears to be scarring at the right lung base. There is no focal consolidation or pleural effusion. Multiple right rib fractures are again noted. XR/XR chest 1V IMPRESSION: No active cardiopulmonary disease.
--- NOTE | ~2023-09-21 | XR_ITS ---
EXAMINATION: XR CHEST 3:42 PM CLINICAL INFORMATION: Triple-lumen catheter placement, hypotension COMPARISON: 09/24/2023 at 9:10 AM TECHNIQUE: Frontal view of the chest was obtained. FINDINGS: There is a new right internal jugular central line extending to the cavoatrial junction. There is volume loss in the right hemithorax with hazy opacity at the right lung base suggesting some underlying atelectasis. Right apical pleural capping is also evident. The cardiomediastinal silhouette is stable. Bronchovascular markings in the left hemithorax are prominent suggesting pulmonary vascular congestion or developing pneumonia. Right rib fractures are again noted. XR/XR chest 1V IMPRESSION: 1. New right internal jugular central line at the cavoatrial junction. No pneumothorax. 2. Volume loss in the right hemithorax with persistent right apical pleural capping. 3. Increasing opacities in the left hemithorax could reflect pulmonary vascular congestion or developing pneumonia.
--- NOTE | ~2023-09-21 | CT_ITS ---
EXAMINATION: CT ANGIOGRAM OF THE CHEST WITH AND WITHOUT CONTRAST (CT PULMONARY ANGIOGRAM FOR PE) CLINICAL INFORMATION: Reason for Exam tachycardia, cancer, SOB, AMS COMPARISON: 04/18/2023 TECHNIQUE: Prior to contrast administration, noncontrast localization images were obtained. Subsequently, multidetector volumetric imaging was performed from the thoracic inlet to below the diaphragms following the administration of 65 mL Omnipaque 350 intravenous contrast. No contrast reaction reported. Per the technologist, the IV failed during the scan. Sagittal, coronal, and MIP oblique sagittal reformatted images were obtained on the CT workstation, uploaded to PACS, and reviewed. This CT examination was performed using dose optimization techniques as appropriate, variously including the following: *Automated exposure control *Adjustment of mA and/or kV according to patient size (this includes techniques or standardized protocols for targeted exams where dose is matched to indication/reason for exam; i.e. extremities or head) *Use of iterative reconstruction technique Total exam dose-length product 334 mGy-cm FINDINGS: QUALITY OF STUDY/CONTRAST BOLUS: Suboptimal. Attenuation value of the pulmonary arteries is approximately 100 Hounsfield units in the main pulmonary arteries, insufficient to identify pulmonary emboli. PULMONARY ARTERIES: The examination is inadequate for assessment of the pulmonary arteries. THORACIC AORTA: No aneurysm. LUNG: Examination is limited by respiratory motion. Post surgical changes of prior right upper lobectomy are noted. Secretions are evident within the right bronchus intermedius. There is mild atelectasis in the right upper lobe. No airspace consolidation. No pulmonary nodules are identified. PLEURA: No pleural effusion or pneumothorax. MEDIASTINUM: There is right lateral deviation of the mediastinal contour due to prior right upper lobectomy. Calcific atherosclerosis is present in the thoracic aorta and in the coronary arteries. Heart is normal in size. No adenopathy. CHEST WALL/AXILLA: Transverse nondisplaced fractures are present in the right fifth and sixth ribs laterally. No additional left-sided rib fractures. No axillary adenopathy. OSSEOUS STRUCTURES: As noted above, there are subacute fractures of the right fifth and sixth ribs. No vertebral body fractures. Mild multilevel degenerative spondylosis. Atrophy of the rotator cuff musculature is indicative of chronic rotator cuff tears. UPPER ABDOMEN: Status post cholecystectomy. No acute findings. CT/CT angio chest PE protocol IMPRESSION: 1. Fractures of the right fifth and sixth ribs laterally likely acute to subacute. 2. No acute pulmonary findings. This study is inadequate for detection of pulmonary emboli due to minimal contrast opacification of the pulmonary arteries. Per the technologist, the IV failed during the scan. VTE: indeterminate.
--- NOTE | ~2023-09-21 | CT_ITS ---
EXAMINATION: CT ABDOMEN AND PELVIS WITHOUT CONTRAST CLINICAL INFORMATION: 73-year-old male with abdominal pain COMPARISON: 04/18/2023 and 12/19/2022 TECHNIQUE: Multidetector volumetric imaging was performed from the superior aspect of the liver through the pubic symphysis. Sagittal and coronal reformatted images were obtained on the technologist's workstation. This CT examination was performed using dose optimization techniques as appropriate, variously including the following: *Automated exposure control *Adjustment of mA and/or kV according to patient size (this includes techniques or standardized protocols for targeted exams where dose is matched to indication/reason for exam; i.e. extremities or head) *Use of iterative reconstruction technique DLP: 403 mGy-cm FINDINGS: LUNG BASES: The visualized lung bases are unremarkable. LIVER, GALLBLADDER, AND BILIARY TREE: Liver revealed cirrhotic architecture with nodular contour without intrahepatic masses or ductal dilatation seen. The gallbladder is surgically absent. PANCREAS: Unremarkable. SPLEEN: Unremarkable. ADRENAL GLANDS: Unremarkable. KIDNEYS AND URETERS: There is nonobstructing 0.3 cm calculus in the lower pole of right kidney There is small amount of contrast in the collecting system of kidneys due to there is stent chest CTA. BLADDER: Urinary bladder distended by IV contrast urine. No evidence of mass is seen the urinary bladder. GASTROINTESTINAL TRACT: There are changes of diverticulosis without diverticulitis. Appendix is not seen. There are postsurgical changes in the right side of the colon with questionably thickening of the colonic loops surrounding suture line. ABDOMINAL WALL: No significant hernia is appreciated. LYMPH NODES: Normal. VASCULAR: Abdominal aorta is calcified but not dilated. PELVIC VISCERA: Unremarkable. OSSEOUS STRUCTURES: There are multilevel degenerative changes in lumbar spine without lytic or blastic lesions seen CT/CT abdomen pelvis wo IV con IMPRESSION: 1. Cirrhotic liver. 2. Nonobstructing calculus in the lower pole of right kidney. 3. Diverticulosis without diverticulitis. 4. Questionable thickening of colonic loops surrounding suture line in the right side of the colon. Fleischner guidelines were followed.
--- NOTE | ~2023-09-21 | XR_ITS ---
EXAMINATION: XR CHEST CLINICAL INFORMATION: Endotracheal tube COMPARISON: Chest radiograph from 09/24/2023 TECHNIQUE: Frontal view of the chest was obtained. FINDINGS: Interval placement of endotracheal tube approximately 1.1 cm from the level of the edward. Right central venous catheter terminating in the right atrium. Enteric tube coursing below left hemidiaphragm presumably terminating within the stomach. Volume loss in the right hemithorax. Patchy radiopacities throughout the bilateral lung sage. Right pleural effusion. Right basilar opacity. Accentuation of pulmonary vasculature. No pneumothorax. Trachea is midline. Cardiac mediastinal silhouette is stable. Right rib fractures redemonstrated. XR/XR chest 1V IMPRESSION: 1. Interval placement of endotracheal tube approximately 1.1 cm from the level of the edward. 2. Right central venous catheter terminating in the right atrium. 3. Enteric tube coursing below left hemidiaphragm presumably terminating within the stomach. 4. Volume loss in the right hemithorax. 5. Patchy radiopacities throughout the bilateral lung sage. 6. Right pleural effusion. 7. Right basilar opacity. 8. Accentuation of the pulmonary vasculature.
--- NOTE | ~2023-09-21 | XR_ITS ---
EXAMINATION: XR CHEST CLINICAL INFORMATION: Altered mental status. COMPARISON: CT dated 04/18/2023 TECHNIQUE: Frontal view of the chest was obtained. FINDINGS: Chain darek are present in the right suprahilar region, most consistent with prior right upper lobectomy. There is associated pleural thickening at the right apex. Rightward shift of the cardiac and mediastinal contours is consistent with prior right upper lobectomy. Lungs are otherwise clear. No pneumothorax, pleural effusion, or pneumothorax. Mild elevation of the right hemidiaphragm. Fractures of the right fifth and sixth ribs laterally may be related to prior surgery. No additional fractures. Degenerative spondylosis is present in the thoracic spine. XR/XR chest 1V IMPRESSION: 1. No acute pulmonary findings. 2. Fractures of the right fifth and sixth ribs laterally, potentially related to prior right upper lobectomy.
[2023-09-21 18:13] VITALS: BP 117/83; PULSE 112; RESP 20; TEMP 37.2; O2SAT 99; BMI 23.6
[2023-09-21 19:06] LABS: MANUAL DIFF FLAG NO
[2023-09-21 19:15] LABS: Basophils Percent Auto 0.1 % (0-2); Eosinophils Absolute Auto 0.2 X10*3/uL (0.0-0.4); Eosinophils Percent Auto 2.2 % (0-4); Hematocrit 35.9 % (42.0-52.0); Hemoglobin 11.9 g/dl (14.0-18.0); Imm Gran Abs Auto 0.02 X10*3/uL (0.00-0.03); Imm Gran Pct Auto 0.3 % (0.0-0.4); Lymphocytes Absolute Auto 0.7 X10*3/uL (1.2-4.9); Lymphocytes Percent Auto 9.7 % (20-40); Mean Corpuscular HGB Conc 33.1 g/dl (31.0-36.0); Mean Corpuscular Hemoglobin 29.6 pg (27.0-33.0); Mean Corpuscular Volume 89.3 fL (80.0-98.0); Mean Platelet Volume 11.6 fL (9.4-12.4); Monocytes Percent Auto 0.6 % (2-11); Neutrophils Percent Auto 87.1 % (45-73); Platelet Count 69 X10*3/uL (160-400); Red Blood Count 4.02 X10*6/uL (4.60-5.80); Red Cell Distribution Width 16.9 % (11.0-16.0); White Blood Count 6.9 X10*3/uL (4.8-10.8)
[2023-09-21 19:23] LABS: Ammonia 143 umol/L (13-55)
--- NOTE | 2023-09-21 19:25 | ED_ITS ---
HPI - Altered Mental Status General Chief Complaint: Altered Mental Status Stated Complaint: AMS per EMS Time Seen by Provider: 09/21/23 18:37 Source: family and EMS Mode of arrival: EMS History of Present Illness HPI narrative: 73-year-old male with history of liver cirrhosis, currently on lactulose, also has recent diagnosis lung cancer with right upper lobe resection and is now undergoing chemotherapy treatment, patient was recently giving steroids and then today family reports that he became very confused and was using the coffee table as a place to use the bathroom, very combative. Family also reports decreased p.o. intake. Related Data Home Medications Medication Instructions Recorded Confirmed blood sugar diagnostic (FreeStyle #10 ea 04/06/22 09/03/23 Lite Strips) lancets 28 gauge (FreeStyle #100 ea 04/06/22 09/03/23 Lancets) metformin 500 mg tablet,extended 500 mg PO DAILY 04/06/22 09/03/23 release 24 hr rosuvastatin 40 mg tablet 40 mg PO DAILY 04/06/22 09/03/23 cyanocobalamin (vitamin B-12) 1,000 mcg PO DAILY 12/07/22 09/03/23 1,000 mcg tablet aspirin 81 mg tablet,delayed 81 mg PO DAILY 12/19/22 09/03/23 release pantoprazole 40 mg tablet,delayed 40 mg PO DAILY@0630 12/19/22 09/03/23 release oxycodone 5 mg tablet 5 mg PO Q8H PRN severe pain 04/23/23 09/03/23 gabapentin 100 mg capsule 100 mg PO TID 05/03/23 09/03/23 Previous Rx's Medication Instructions Recorded cholecalciferol (vitamin D3) 50 50 mcg PO DAILY #90 caps 05/18/22 mcg (2,000 unit) capsule lactulose 10 gram/15 mL oral 20 g (30 mL) PO BID #473 mL 01/14/23 solution ursodiol 250 mg tablet 250 mg PO BID #60 tabs 07/19/23 ferrous sulfate 325 mg (65 mg 325 mg PO DAILY #90 tabs 09/03/23 iron) tablet potassium chloride 20 mEq 20 meq PO DAILY #30 tabs 09/03/23 tablet,extended release ondansetron 8 mg disintegrating 8 mg PO Q8H #60 tabs 09/12/23 tablet dexamethasone 4 mg tablet 4 mg PO BID #100 tabs 09/17/23 Allergies Allergy/AdvReac Type Severity Reaction Status Date / Time Iodinated Contrast Media Allergy Unknown Hives Verified 09/21/23 18:24 [IV Dye, Iodine Containing] Review of Systems 2 Review of Systems: Yes Unobtainable due to mental condition PMFSH Past Medical History Source: nursing notes reviewed Medical History COPD (chronic obstructive pulmonary disease) Pneumonia Squamous cell carcinoma of lung (~2022) Lung cancer Renal calculi Alcohol abuse Diverticulitis Iliac artery aneurysm Surgical History History of appendectomy (~1998) History of bowel resection (~1992) History of exploratory laparotomy (~2007) History of ERCP (~2017) History of abdominal surgery (~2017) History of bronchoscopy (~2022) History of colostomy reversal (~1992) Social History Social History Household Members: Spouse Alcohol intake: current Alcohol intake frequency: former alcohol drinker Alcohol type: beer and hard liquor Patient Tobacco Use Status: Current everyday Tobacco user Tobacco use type: Cigarette Smoked in Last 30 Days: No Advance Directives: No Advance Directives Information Provided: No service: No Physical Exam ED Vital Signs: Vital Signs - 24 hr 09/21/23 18:13 09/21/23 23:04 Temperature 98.9 F 99.4 F Pulse Rate 112 H 116 H Respiratory Rate 20 20 Blood Pressure 117/83 130/76 Pulse Oximetry 99 95 Oxygen Delivery Method Room Air Room Air BMI result Body Mass Index 23.6 VITAL SIGNS: Reviewed. GENERAL: Well developed, well nourished, in no acute distress. HEAD: Normocephalic/atrauatic, EYES: PERRLA, EOMI EARS: Ext canals without abnormality NOSE: Nares patent bilateral OROPHARYNX: no oral lesions noted, posterior pharynx clear NECK: Supple, no adenopathy LUNGS: Normal breath sounds. No adventitious sounds or accessory muscle use. SpO2<99> CARDIOVASCULAR: Regular rate and rhythm without noted murmurs ABDOMEN: Soft, non-tender, non-distended with bowel sounds. MUSCULOSKELETAL: No tenderness, deformities, or effusions noted on gross inspection. EXTREMITIES: No cyanosis, clubbing or edema. SKIN: Inspection of the skin reveals no rashes NEUROLOGIC: Alert but confused. Strength and sensation to light touch were grossly intact x 4. Medications Administered Discontinued Medications Generic Name Dose Route Start Last Admin Trade Name Hugo PRN Reason Stop Dose Admin Diphenhydramine HCl 25 mg 09/21/23 20:55 09/21/23 21:05 Diphenhydramine Hcl 50 Mg/Ml Vial IVPUSH 09/21/23 20:56 25 mg ONCE ONE Administration Haloperidol Lactate 2.5 mg 09/21/23 20:55 09/21/23 21:05 Haloperidol Lactate 5 Mg/Ml Vial IM 09/21/23 20:56 2.5 mg ONCE ONE Administration Sodium Chloride 500 mls @ 500 mls/hr 09/21/23 23:39 09/22/23 00:14 Ns IV 09/22/23 00:38 500 mls/hr .Q1H ONE Administration Lactulose 20 gm 09/21/23 20:31 09/21/23 21:05 Lactulose 20 Gm/30 Ml Solution PO 09/21/23 20:32 20 gm ONCE ONE Administration Medical Decision Making Medical Decision Making [facility] Narrative: 1909: 73-year-old male with history and clinical presentation, DDX: Hepatic encephalopathy suspect elevated ammonia levels, steroid psychosis I reviewed all investigations and hematologic indices are negative for leukocytosis, there is a chronically low platelet count, there is a stable normocytic anemia. Chemistry indices do not demonstrate and VICKEY but there is a mild low potassium levels and according to the family patient takes potassium supplementation, magnesium levels are within normal limits. Patient is noted to have an increase in bilirubin and AST but alkaline phosphatase remains chronically elevated. Ammonia level is indicated to be 143 and may be contributing to troponin levels of 50.7 but given underlying liver cirrhosis, confusion, tachycardia and history of cancer will pursue CT angio with PE protocol to ensure no underlying VTE. Serial high sensitivity troponins are flat and suspect that they were erroneously elevated secondary to elevated ammonia levels. IV failed during the CT angio for PE protocol, there were no other acute pathologies but assessment for VTE is indeterminate. 2325: I discussed case with inpatient hospitalist who accepts admission. Differential Diagnosis Differential Diagnoses: The differential diagnosis associated with the presentation includes Please see the discussion above Admission/Observation Consideration of admission/observation: Escalation of care including admission/observation considered Please see the discussion above Consult Healthcare Provider Management of the patient was discussed with: Hospitalist Please see the discussion above Lab Data MDM Lab Attestation statement: I reviewed the patient's lab results. Please see the discussion above 09/21/23 18:59 09/21/23 18:59 Labs: Lab Results 09/21/23 09/21/23 Range/Units 18:59 23:56 WBC 6.9 (4.8-10.8) X10*3/uL RBC 4.02 L (4.60-5.80) X10*6/uL Hgb 11.9 L (14.0-18.0) g/dl Hct 35.9 L (42.0-52.0) % MCV 89.3 (80.0-98.0) fL MCH 29.6 (27.0-33.0) pg MCHC 33.1 (31.0-36.0) g/dl RDW 16.9 H (11.0-16.0) % Plt Count 69 L D (160-400) X10*3/uL MPV 11.6 (9.4-12.4) fL Immature Gran % (Auto) 0.3 (0.0-0.4) % Neut % (Auto) 87.1 H (45-73) % Lymph % (Auto) 9.7 L (20-40) % Hardeman % (Auto) 0.6 L (2-11) % Eos % (Auto) 2.2 (0-4) % Baso % (Auto) 0.1 (0-2) % Lymph # (Auto) 0.7 L (1.2-4.9) X10*3/uL Hardeman # (Auto) 0.0 L (0.1-1.2) X10*3/uL Eos # (Auto) 0.2 (0.0-0.4) X10*3/uL Baso # (Auto) 0.0 (0.0-0.2) X10*3/uL Abs Immat Gran (auto) 0.02 (0.00-0.03) X10*3/uL Absolute Neuts (auto) 6.0 (2.0-8.3) x10*3/uL Absolute Nucleated RBC 0.000 (0.0-0.012) X10*3/uL Nucleated RBC % (auto) 0.0 (0.0-0.2) /100WBC Sodium 138 (135-145) mmol/L Potassium 3.2 L (3.3-5.1) mmol/L Chloride 110 H (96-108) mmol/L Carbon Dioxide 18 L (22-29) mmol/L Anion Gap 13 (12-20) BUN 18 H (9-16) mg/dL Creatinine 0.78 (0.5-1.4) mg/dL Estim Creat Clear Calc 78.3 Estimated GFR > 60 Random Glucose 208 H (60-115) mg/dL Calcium 9.0 D (8.4-10.2) mg/dL Magnesium 2.0 (1.6-2.6) mg/dL Total Bilirubin 1.3 H (0.0-1.0) mg/dL AST 46 H (5-37) U/L ALT 28 (0-40) U/L Alkaline Phosphatase 139 H (39-117) U/L Ammonia 143 H (13-55) umol/L Troponin I High Sens 50.7 H D 51.7 H (<3.5-35.0) ng/L Total Protein 7.6 (6.5-8.0) g/dL Albumin 3.4 L (3.5-5.0) g/dL Independent Interpretation I performed an independent interpretation of an: EKG Interpretation: Sinus tachycardia, HR-107, significant baseline artifact but ?ST depressions in V2/V3, otherwise no ST elevations, NE/QRS/QTC is within normal limits. Radiology Impression Discussion of test interpretation with radiology: I have reviewed the radiologist's reading. Radiologist Impression: Please see the discussion above External Record Review External record reviewed: Outpatient record, Prior outpatient labs and Prior outpatient radiology Chronic Conditions Patient?s care impacted by: Diabetes, Hypertension and Other COPD, liver cirrhosis, lung cancer Procedures EJ/Peripheral Line Arm R: Time Out Performed: No Skin Cleansed in Sterile Fashion: Yes Size (gauge): 18 IV Secured and Dressing Applied: Yes Patient Tolerated Procedure: well Additional Comments: Peripheral line was placed under ultrasound guidance. Critical Care Time Critical Care Time Critical Care Time: Yes Total Critical Care Time: 90 Attestation: I personally attest to this time spent taking care of the patient. Discharge Plan Discharge Clinical Impression: Hepatic encephalopathy, Anterior ST segment depression, Elevated troponin Patient Disposition: Admitted As Inpatient
[2023-09-21 19:27] LABS: Alanine Aminotransferase 28 U/L (0-40); Albumin Level 3.4 g/dL (3.5-5.0); Alkaline Phosphatase 139 U/L (39-117); Anion Gap 13 (12-20); Aspartate Amino Transferase 46 U/L (5-37); Bilirubin Total 1.3 mg/dL (0.0-1.0); Blood Urea Nitrogen 18 mg/dL (9-16); Carbon Dioxide 18 mmol/L (22-29); Chloride 110 mmol/L (96-108); Creatinine Clr Calc Pharmacy 78.3; Estimated Glomerular Filt Rate > 60; Glucose Random 208 mg/dL (60-115); Potassium 3.2 mmol/L (3.3-5.1); Sodium 138 mmol/L (135-145); Total Protein 7.6 g/dL (6.5-8.0)
[2023-09-21 19:33] LABS: Troponin-I High Sensitivity 50.7 ng/L (<3.5-35.0)
--- NOTE | 2023-09-21 19:40 | ECG_ITS ---
Test Reason : AMS Blood Pressure : / mmHG Vent. Rate : 107 BPM Atrial Rate : 107 BPM P-R Int : 178 ms QRS Dur : 092 ms QT Int : 330 ms P-R-T Axes : 063 017 078 degrees QTc Int : 440 ms Sinus tachycardia Poor data quality ST depression in Anterior leads Nonspecific ST abnormality Inferior leads Abnormal ECG When compared with ECG of 19-DEC-2022 10:07, ST now depressed in Anterior leads T wave inversion now evident in Anterior leads Referred By: Dottie Henry Electronically Signed By:MELY ANGELES MD
[2023-09-21] MEDS: Haloperidol Lactate 5 MG/ML VIAL 2.5 MG IM (21:05)
[2023-09-21] MEDS: Lactulose 20 GM/30 ML SOLUTION PO (21:05)
[2023-09-21] MEDS: diphenhydrAMINE HCL 50 MG/ML VIAL 25 MG IVPUSH (21:05)
--- NOTE | 2023-09-21 22:28 | PC.NURSE ---
Pt has had several large bowel movements. soft/liquidy in texture. Pt has been cleaned and given clean, warm blankets.
[2023-09-21 23:04] VITALS: BP 130/76; PULSE 116; RESP 20; TEMP 37.4; O2SAT 95
[2023-09-22] MEDS: 0.9 % Sodium Chloride 500 ML IV (00:14)
[2023-09-22 00:19] LABS: Troponin-I High Sensitivity 51.7 ng/L (<3.5-35.0)
--- NOTE | 2023-09-22 00:32 | PM.IMHP ---
History of Present Illness Date of Service: 09/22/23 Chief Complaint: AMS This is a 73-year-old male with pertinent history of alcoholic liver cirrhosis, right lung cancer status post resection and chemotherapy, COPD not on home oxygen, mvh-jmisxfx-qkwrcweqp diabetes mellitus, mixed hyperlipidemia who was brought to the emergency department for evaluation of altered mentation. Unable to obtain history from the patient due to confusion. History obtained from daughter at bedside. As per the daughter, patient was confused on the day of presentation. He was using the coffee table as his bathroom and was very agitated. Patient underwent chemotherapy last week and has been on steroids since. No complaints of abdominal pain, fever, chills, hematemesis, melena or hematochezia. Unable to obtain review of systems. In the emergency department, ammonia was found to be elevated and patient was initiated on lactulose Review of Systems Review of Systems: Yes Unobtainable due to mental status [facility] Medical History COPD (chronic obstructive pulmonary disease) Pneumonia Squamous cell carcinoma of lung (~2022) Lung cancer Renal calculi Alcohol abuse Diverticulitis Iliac artery aneurysm Pertinent family history: Unable to obtain Surgical History History of appendectomy (~1998) History of bowel resection (~1992) History of exploratory laparotomy (~2007) History of ERCP (~2017) History of abdominal surgery (~2017) History of bronchoscopy (~2022) History of colostomy reversal (~1992) Social History Household Members: Spouse Alcohol intake: current Alcohol intake frequency: former alcohol drinker Alcohol type: beer and hard liquor Patient Tobacco Use Status: Current everyday Tobacco user Tobacco use type: Cigarette Smoked in Last 30 Days: No Advance Directives: No Advance Directives Information Provided: No service: No Meds Allergies Allergy/AdvReac Type Severity Reaction Status Date / Time Iodinated Contrast Media Allergy Unknown Hives Verified 09/21/23 18:24 [IV Dye, Iodine Containing] Active Medications: Current Medications Sodium Chloride (Ns) 500 mls @ 500 mls/hr IV .Q1H ONE Stop: 09/22/23 00:38 Last Admin: 09/22/23 00:14 Dose: 500 mls/hr Home Medications Medication Instructions Recorded Confirmed Last Taken Type blood sugar diagnostic (FreeStyle #10 ea 04/06/22 09/03/23 Unknown History Lite Strips) lancets 28 gauge (FreeStyle #100 ea 04/06/22 09/03/23 Unknown History Lancets) metformin 500 mg tablet,extended 500 mg PO DAILY 04/06/22 09/03/23 Unknown History release 24 hr rosuvastatin 40 mg tablet 40 mg PO DAILY 04/06/22 09/03/23 Unknown History cyanocobalamin (vitamin B-12) 1,000 mcg PO DAILY 12/07/22 09/03/23 Unknown History 1,000 mcg tablet aspirin 81 mg tablet,delayed 81 mg PO DAILY 12/19/22 09/03/23 Unknown History release pantoprazole 40 mg tablet,delayed 40 mg PO DAILY@0630 12/19/22 09/03/23 Unknown History release oxycodone 5 mg tablet 5 mg PO Q8H PRN severe pain 04/23/23 09/03/23 Unknown History gabapentin 100 mg capsule 100 mg PO TID 05/03/23 09/03/23 Unknown History Physical Exam Vital Signs and Narrative: Vital Signs: Last Vital Signs Temp 99.4 F 09/21/23 23:04 Pulse 116 H 09/21/23 23:04 Resp 20 09/21/23 23:04 BP 130/76 09/21/23 23:04 Pulse Ox 95 09/21/23 23:04 O2 Del Method Room Air 09/21/23 23:04 BMI result Body Mass Index 23.6 Middle-aged male lying in bed in no distress Neck supple, no JVD Tachycardic with regular rhythm, S1-S2 heard Regular breath sounds bilaterally, no wheezing or crackles appreciated Abdomen soft nontender, no guarding, no rigidity Patient is only eye opening to verbal stimulus, not taking part in conversation, unable to obtain orientation Psych: Drowsy No pedal edema Results Labs 09/21/23 18:59 09/21/23 18:59 Labs: Laboratory Results - last 24 hr 09/21/23 18:59 MCV 89.3 MCH 29.6 MCHC 33.1 RDW 16.9 H Plt Count 69 L D MPV 11.6 Immature Gran % (Auto) 0.3 Neut % (Auto) 87.1 H Lymph % (Auto) 9.7 L [place] % (Auto) 0.6 L Eos % (Auto) 2.2 Baso % (Auto) 0.1 Lymph # (Auto) 0.7 L [place] # (Auto) 0.0 L Eos # (Auto) 0.2 Baso # (Auto) 0.0 Abs Immat Gran (auto) 0.02 Absolute Neuts (auto) 6.0 Absolute Nucleated RBC 0.000 Nucleated RBC % (auto) 0.0 Anion Gap 13 Estim Creat Clear Calc 78.3 Estimated GFR > 60 Random Glucose 208 H Calcium 9.0 D Magnesium 2.0 Total Bilirubin 1.3 H AST 46 H ALT 28 Alkaline Phosphatase 139 H Ammonia 143 H Total Protein 7.6 Albumin 3.4 L Imaging Radiologist's Impressions: Impressions Chest X-Ray 09/21/23 19:29 IMPRESSION: 1. No acute pulmonary findings. 2. Fractures of the right fifth and sixth ribs laterally, potentially related to prior right upper lobectomy. Chest CTA 09/21/23 21:51 IMPRESSION: 1. Fractures of the right fifth and sixth ribs laterally likely acute to subacute. 2. No acute pulmonary findings. This study is inadequate for detection of pulmonary emboli due to minimal contrast opacification of the pulmonary arteries. Per the technologist, the IV failed during the scan. VTE: indeterminate. Assessment and Plan (1) Hepatic encephalopathy: Status: Acute Plan This is a 73-year-old male with pertinent history of alcoholic liver cirrhosis, right lung cancer status post resection and chemotherapy, COPD not on home oxygen, iow-gwcnyde-rbtkxjapk diabetes mellitus, mixed hyperlipidemia who was brought to the emergency department for evaluation of altered mentation. #. Hepatic encephalopathy grade II/III in a patient with alcoholic cirrhosis: No signs of GI bleed or infection, UA pending. Initiating lactulose and monitor mentation. Follow ammonia levels #. Hypokalemia: Repleting #. Uey-ogvdkhh-fntdcugce diabetes mellitus with hyperglycemia: Initiating Accu-Cheks with sliding scale insulin every 6 hours. #. Thrombocytopenia in the setting of cirrhosis #. Elevated troponin, likely type 2 in the setting of increased demand Med rec pending DVT prophylaxis: Mechanical Admit as inpatient and will require two night minimum hospital stay for close monitoring of mentation, ammonia levels and electrolytes (as above), which is not possible in a lesser acute setting as high risk for decompensation Quality Stroke Does the patient have a stroke diagnosis?: No VTE Prior VTE?: No VTE Risk Level:: Medical - moderate - high VTE Device Contraindication: N/A - Device Ordered VTE Drug Contraindication: Treatment Not Indicated
[2023-09-22 02:19] LABS: Glucose, Whole Blood 208 mg/dL (60-115)
[2023-09-22] MEDS: Potassium Chloride/H20 10 MEQ/100 ML PIGGYBACK 100 MEQ IV ×4 (02:24→09:11)
[2023-09-22] MEDS: Insulin Lispro 100 UNIT/ML 3 ML VIAL SUBCUT ×2 (02:24→12:56)
[2023-09-22 03:18] VITALS: BMI 23.9
[2023-09-22 03:27] VITALS: BP 142/88; PULSE 123; RESP 18; TEMP 37; O2SAT 97
[2023-09-22 05:08] LABS: Glucose, Whole Blood 178 mg/dL (60-115)
[2023-09-22 06:16] LABS: MANUAL DIFF FLAG NO
[2023-09-22 06:29] LABS: Ammonia 98 umol/L (13-55)
[2023-09-22 06:31] LABS: Basophils Percent Auto 0.4 % (0-2); Eosinophils Absolute Auto 0.1 X10*3/uL (0.0-0.4); Eosinophils Percent Auto 1.5 % (0-4); Hematocrit 35.8 % (42.0-52.0); Hemoglobin 11.9 g/dl (14.0-18.0); Imm Gran Abs Auto 0.06 X10*3/uL (0.00-0.03); Imm Gran Pct Auto 1.3 % (0.0-0.4); Lymphocytes Absolute Auto 0.5 X10*3/uL (1.2-4.9); Lymphocytes Percent Auto 10.5 % (20-40); Mean Corpuscular HGB Conc 33.2 g/dl (31.0-36.0); Mean Corpuscular Hemoglobin 29.3 pg (27.0-33.0); Mean Corpuscular Volume 88.2 fL (80.0-98.0); Mean Platelet Volume 11.1 fL (9.4-12.4); Monocytes Absolute Auto 0.1 X10*3/uL (0.1-1.2); Monocytes Percent Auto 1.7 % (2-11); Neutrophils Absolute Auto 4.1 x10*3/uL (2.0-8.3); Neutrophils Percent Auto 84.6 % (45-73); Red Blood Count 4.06 X10*6/uL (4.60-5.80); Red Cell Distribution Width 16.7 % (11.0-16.0); White Blood Count 4.8 X10*3/uL (4.8-10.8)
[2023-09-22 06:32] LABS: Platelet Count 63 X10*3/uL (160-400)
[2023-09-22 06:34] LABS: Anion Gap 14 (12-20); Blood Urea Nitrogen 19 mg/dL (9-16); Calcium 9.4 mg/dL (8.4-10.2); Carbon Dioxide 18 mmol/L (22-29); Chloride 112 mmol/L (96-108); Creatinine Clr Calc Pharmacy 77.3; Estimated Glomerular Filt Rate > 60; Glucose Random 186 mg/dL (60-115); Potassium 3.7 mmol/L (3.3-5.1); Sodium 140 mmol/L (135-145)
[2023-09-22 06:44] LABS: Troponin-I High Sensitivity 45.4 ng/L (<3.5-35.0)
[2023-09-22] MEDS: Lactulose 20 GM/30 ML SOLUTION PO ×2 (07:30→20:33)
[2023-09-22 07:44] LABS: Glucose, Whole Blood 160 mg/dL (60-115)
[2023-09-22 07:49] VITALS: BP 134/80; PULSE 114; RESP 18; TEMP 36.9; O2SAT 99
--- NOTE | 2023-09-22 09:23 | HO.PM.IMPN ---
Subjective Subjective Date of Service: 09/22/23 Interval History: Less confused, alert, no agiation, Physical Exam Vital Signs: Vital Signs: Last Vital Signs Temp 98.4 F 09/22/23 07:49 Pulse 114 H 09/22/23 07:49 Resp 18 09/22/23 07:49 BP 134/80 09/22/23 07:49 Pulse Ox 99 09/22/23 07:49 O2 Del Method Room Air 09/22/23 07:49 BMI result Body Mass Index 23.9 Const: Other: General: oriented to self Resp: CTA bilateral CVS: S1,S2,RRR GI: +BS, NT, no distention Skin: No rash Neuro: motor grossly intact Psych: appropriate affect Objective Data Active Medications Acetaminophen (Acetaminophen 325 Mg Tablet) 650 mg PO Q6H PRN PRN Reason: Pain, Mild (Pain Scale 1-3) Acetaminophen (Acetaminophen Supp 650 Mg Supp.Rect) 650 mg [place] Q6H PRN PRN Reason: Pain, Mild (Pain Scale 1-3) Dextrose (Dextrose 50 % 25 Gm/50 Ml Syringe) 25 gm IVPUSH Q15M PRN; Protocol PRN Reason: per Hypoglycemia Standing Ord. Glucose (Glucose Gel 15 Gm Gel..Gram.) 15 gm PO Q15M PRN; Protocol PRN Reason: per Hypoglycemia Standing Ord. Insulin Human Lispro (Insulin Lispro 100 Unit/Ml 3 Ml Vial) 0 unit SUBCUT Q6H [facility]; Protocol Last Admin: 09/22/23 05:30 Dose: Not Given Documented By: LARRY Non-Admin Reason: No Insulin Coverage Comments: POC 178 Lactulose (Lactulose 20 Gm/30 Ml Solution) 20 gm PO QID [facility] Last Admin: 09/22/23 07:30 Dose: 20 gm Documented By: KATIE Melatonin (Melatonin 3 Mg Tablet) 6 mg PO BEDTIME PRN PRN Reason: Insomnia Ondansetron HCl (Ondansetron Hcl 4 Mg/2 Ml Vial) 4 mg IVPUSH Q8H PRN PRN Reason: Nausea and Vomiting Sodium Chloride (0.9 % Sodium Chloride Flush 3 Ml Syringe) 3 ml IVFLUSH QSHIFT [facility] Last Admin: 09/22/23 07:30 Dose: Not Given Documented By: KATIE Non-Admin Reason: IV Running Labs 09/22/23 06:11 09/22/23 06:11 Labs: Laboratory Results - last 24 hr 09/21/23 09/22/23 09/22/23 18:59 02:16 05:04 MCV 89.3 MCH 29.6 MCHC 33.1 RDW 16.9 H Plt Count 69 L D MPV 11.6 Immature Gran % (Auto) 0.3 Neut % (Auto) 87.1 H Lymph % (Auto) 9.7 L [place] % (Auto) 0.6 L Eos % (Auto) 2.2 Baso % (Auto) 0.1 Lymph # (Auto) 0.7 L [place] # (Auto) 0.0 L Eos # (Auto) 0.2 Baso # (Auto) 0.0 Abs Immat Gran (auto) 0.02 Absolute Neuts (auto) 6.0 Absolute Nucleated RBC 0.000 Nucleated RBC % (auto) 0.0 Anion Gap 13 Estim Creat Clear Calc 78.3 Estimated GFR > 60 POC Glucose 208 H 178 H Random Glucose 208 H Calcium 9.0 D Magnesium 2.0 Total Bilirubin 1.3 H AST 46 H ALT 28 Alkaline Phosphatase 139 H Ammonia 143 H Total Protein 7.6 Albumin 3.4 L 09/22/23 09/22/23 06:11 07:39 MCV 88.2 MCH 29.3 MCHC 33.2 RDW 16.7 H Plt Count 63 L MPV 11.1 Immature Gran % (Auto) 1.3 H Neut % (Auto) 84.6 H Lymph % (Auto) 10.5 L [place] % (Auto) 1.7 L Eos % (Auto) 1.5 Baso % (Auto) 0.4 Lymph # (Auto) 0.5 L [place] # (Auto) 0.1 Eos # (Auto) 0.1 Baso # (Auto) 0.0 Abs Immat Gran (auto) 0.06 H Absolute Neuts (auto) 4.1 Absolute Nucleated RBC 0.000 Nucleated RBC % (auto) 0.0 Anion Gap 14 Estim Creat Clear Calc 77.3 Estimated GFR > 60 POC Glucose 160 H Random Glucose 186 H Calcium 9.4 Magnesium Total Bilirubin AST ALT Alkaline Phosphatase Ammonia 98 H Total Protein Albumin Assessment and Plan (1) Hepatic encephalopathy: Status: Acute Plan This is a 73-year-old male with pertinent history of alcoholic liver cirrhosis, right lung cancer status post resection and chemotherapy, COPD not on home oxygen, akt-xhaugwj-kfyedofeu diabetes mellitus, mixed hyperlipidemia who was brought to the emergency department for evaluation of altered mentation. #. Metabolic encephalopathy d/t Hepatic encephalopathy grade II/III in a patient with alcoholic cirrhosis: No signs of GI bleed or infection, UA pending. continue lactulose. Ammonia is trending down and he is becoming less confused #. Hypokalemia: Repleting with IV potassium but he is now awake enough to take PO #. Ege-yayudlx-xsodvjtoc diabetes mellitus with hyperglycemia: Initiating Accu-Cheks with sliding scale insulin every 6 hours. #. Thrombocytopenia in the setting of cirrhosis #. Elevated troponin, likely type 2 in the setting of increased demand Med rec still pending DVT prophylaxis: Mechanical need for inpt: management of acute metabolic encephalopathy due to hepatic ecephalopath Quality Stroke Does the patient have a stroke diagnosis?: No VTE Prior VTE?: No VTE Risk Level:: Medical - moderate - high VTE Device Contraindication: N/A - Device Ordered VTE Drug Contraindication: Treatment Not Indicated
--- NOTE | 2023-09-22 10:21 | PHA.MEDREC ---
Pharmacy Consult ? Medication Reconciliation Pharmacy has completed the medication reconciliation. Spoke to family member Rosemary over the phone ([phone] however she stated that her mom usually helps with the patient's meds but she had a list. Most matched claim history. Rosemary did state that patient no longer takes ursodiol or ferrous sulfate, however she also said he was taking gabapentin and rosuvastatin. Notified Dr. Gudino of this and he told me not to continue them in the med rec.
[2023-09-22 11:20] LABS: Glucose, Whole Blood 184 mg/dL (60-115)
[2023-09-22] MEDS: Morphine Sulfate 2 MG/ML CARTRIDGE IVPUSH ×2 (13:18→18:34)
[2023-09-22 15:52] VITALS: BP 119/67; PULSE 107; RESP 18; TEMP 37.2; O2SAT 97
[2023-09-22] MEDS: 0.9 % Sodium Chloride Flush 3 ML SYRINGE IVFLUSH ×2 (15:52→23:35)
[2023-09-22 16:33] LABS: Glucose, Whole Blood 150 mg/dL (60-115)
[2023-09-22 19:23] VITALS: BP 115/72; PULSE 104; RESP 18; TEMP 36.7; O2SAT 96
[2023-09-22] MEDS: Acetaminophen 325 MG TABLET 650 MG PO (21:27)
[2023-09-22 23:35] LABS: Glucose, Whole Blood 141 mg/dL (60-115)
[2023-09-23] VITALS (7 sets, daily range): BP systolic 93–120; BP diastolic 57–73; PULSE 85–110; RESP 14–18; TEMP 36–37.2; O2SAT 92–97
[2023-09-23] MEDS: Morphine Sulfate 2 MG/ML CARTRIDGE IVPUSH ×5 (00:01→18:02)
[2023-09-23 00:21] LABS: Appearance Urine Clear; Color Urine Yellow; Glucose Urine UA 250 mg/dL (Negative); Leukocyte Esterase Urine Negative (Negative); Nitrite Urine Negative (Negative); Specific Gravity - Urine >= 1.030 (1.005-1.025); UMIC TRIGGER UACC YES; Urine Blood Moderate (2+) (Negative); Urine Ketones Negative (Negative); Urine Protein 100 (2+) mg/dL (Neg-Trace)
[2023-09-23 00:33] LABS: Bacteria Urine None Seen (None Seen); Granular Casts Urine Present; RBC Urine 0-2 /HPF (0-2); WBC Urine 0-5 /HPF (0-5)
[2023-09-23 06:34] LABS: Glucose, Whole Blood 158 mg/dL (60-115)
[2023-09-23 07:36] LABS: Glucose, Whole Blood 147 mg/dL (60-115)
[2023-09-23] MEDS: Lactulose 20 GM/30 ML SOLUTION PO ×3 (07:56→20:43)
[2023-09-23] MEDS: 0.9 % Sodium Chloride Flush 3 ML SYRINGE IVFLUSH ×3 (07:56→20:44)
[2023-09-23 08:23] LABS: Ammonia 44 umol/L (13-55)
--- NOTE | 2023-09-23 09:32 | P.PNIM_ITS ---
Subjective Subjective Date of Service: 09/23/23 Interval History: f/u on hepatic encephalopathy, alert and oreiented c/o abd pain but appear chronic, CT result pending Physical Exam 2 Vital Signs: Vital Signs: Last Vital Signs Temp 98.0 F 09/23/23 07:08 Pulse 98 09/23/23 07:08 Resp 16 09/23/23 07:08 BP 120/73 09/23/23 07:08 Pulse Ox 94 09/23/23 07:08 O2 Del Method Room Air 09/23/23 07:08 BMI result Body Mass Index 23.9 Const: Other: General: AO X 3, no acute distress Resp: CTA bilateral CVS: S1,S2,RRR GI: +BS, ND, mild tenderness non specific Skin: No rash Neuro: motor grossly intact Psych: appropriate affect Objective Data Active Medications Acetaminophen (Acetaminophen 325 Mg Tablet) 650 mg PO Q6H PRN PRN Reason: Pain, Mild (Pain Scale 1-3) Last Admin: 09/22/23 21:27 Dose: 650 mg Documented By: ROXANA Acetaminophen (Acetaminophen Supp 650 Mg Supp.Rect) 650 mg [place] Q6H PRN PRN Reason: Pain, Mild (Pain Scale 1-3) Dextrose (Dextrose 50 % 25 Gm/50 Ml Syringe) 25 gm IVPUSH Q15M PRN; Protocol PRN Reason: per Hypoglycemia Standing Ord. Glucose (Glucose Gel 15 Gm Gel..Gram.) 15 gm PO Q15M PRN; Protocol PRN Reason: per Hypoglycemia Standing Ord. Insulin Human Lispro (Insulin Lispro 100 Unit/Ml 3 Ml Vial) 0 unit SUBCUT QIDACHS [facility]; Protocol Lactulose (Lactulose 20 Gm/30 Ml Solution) 20 gm PO QID [facility] Last Admin: 09/23/23 07:56 Dose: 20 gm Documented By: CANDY Melatonin (Melatonin 3 Mg Tablet) 6 mg PO BEDTIME PRN PRN Reason: Insomnia Morphine Sulfate (Morphine Sulfate 2 Mg/Ml Cartridge) 2 mg IVPUSH Q4H PRN; Protocol PRN Reason: Pain, Severe (Pain Scale 7-10) Last Admin: 09/23/23 07:55 Dose: 2 mg Documented By: CANDY Comments: Dr. Gudino ok'd to give early Ondansetron HCl (Ondansetron Hcl 4 Mg/2 Ml Vial) 4 mg IVPUSH Q8H PRN PRN Reason: Nausea and Vomiting Sodium Chloride (0.9 % Sodium Chloride Flush 3 Ml Syringe) 3 ml IVFLUSH QSHIFT [facility] Last Admin: 09/23/23 07:56 Dose: 3 ml Documented By: CANDY Labs 09/22/23 06:11 09/22/23 06:11 Labs: Laboratory Results - last 24 hr 09/22/23 09/22/23 09/22/23 00:10 11:11 16:30 POC Glucose 184 H 150 H Ammonia Urine Color Yellow Urine Appearance Clear Urine pH 6.0 Ur Specific [place] >= 1.030 H Urine Protein 100 (2+) H Urine Glucose (UA) 250 H Urine Ketones Negative Urine Blood Moderate (2+) H Urine Nitrite Negative Ur Leukocyte Esterase Negative Urine RBC 0-2 Urine WBC 0-5 Ur Squamous Epith Cells 6-10 Urine Bacteria None Seen Hyaline Casts 6-10 Granular Casts Present 09/22/23 09/23/23 09/23/23 23:31 06:29 07:13 POC Glucose 141 H 158 H 147 H Ammonia Urine Color Urine Appearance Urine pH Ur Specific [place] Urine Protein Urine Glucose (UA) Urine Ketones Urine Blood Urine Nitrite Ur Leukocyte Esterase Urine RBC Urine WBC Ur Squamous Epith Cells Urine Bacteria Hyaline Casts Granular Casts 09/23/23 08:10 POC Glucose Ammonia 44 Urine Color Urine Appearance Urine pH Ur Specific [place] Urine Protein Urine Glucose (UA) Urine Ketones Urine Blood Urine Nitrite Ur Leukocyte Esterase Urine RBC Urine WBC Ur Squamous Epith Cells Urine Bacteria Hyaline Casts Granular Casts Assessment and Plan (1) Hepatic encephalopathy: Status: Acute Plan This is a 73-year-old male with pertinent history of alcoholic liver cirrhosis, right lung cancer status post resection and chemotherapy, COPD not on home oxygen, ued-tebaumk-rdvhgzsco diabetes mellitus, mixed hyperlipidemia who was brought to the emergency department for evaluation of altered mentation. #. Metabolic encephalopathy d/t hepatic encephalopathy, resolved, ammonia down to normal #. Hypokalemia: resolved with replacement #. Abdominal pain, apear chronic, exam non surgical, awaiting on CT result #. Oyd-uipnqas-eibpbkplw diabetes mellitus with hyperglycemia: SSI, restart metformin, #. Thrombocytopenia in the setting of cirrhosis, chronic #. Elevated troponin, likely type 2 in the setting of increased demand DVT prophylaxis: Mechanical d/t to low plat need for inpt: management of acute metabolic encephalopathy due to hepatic ecephalopathy home later today if CT unremarkable Quality Stroke Does the patient have a stroke diagnosis?: No VTE Prior VTE?: No VTE Risk Level:: Medical - moderate - high VTE Device Contraindication: N/A - Device Ordered VTE Drug Contraindication: Treatment Not Indicated
[2023-09-23 11:01] LABS: Glucose, Whole Blood 202 mg/dL (60-115)
--- NOTE | 2023-09-23 11:40 | MHC.CM.PN ---
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
[2023-09-23] MEDS: Aspirin Enteric Coated 81 MG TABLET.DR PO (11:59)
[2023-09-23] MEDS: Cyanocobalamin (Vitamin B-12) 1,000 MCG TABLET 1000 MCG PO (11:59)
[2023-09-23] MEDS: Potassium Chloride ER 20 MEQ TAB.ER.PRT PO (11:59)
[2023-09-23] MEDS: Cholecalciferol (Vitamin D3) 25 MCG TABLET 50 MCG PO (12:00)
[2023-09-23] MEDS: Insulin Lispro 100 UNIT/ML 3 ML VIAL SUBCUT ×2 (12:00→17:08)
[2023-09-23] MEDS: oxyCODONE HCl Immed Release 5 MG TABLET PO ×2 (12:19→20:43)
[2023-09-23] MEDS: Acetaminophen 325 MG TABLET 650 MG PO (12:19)
[2023-09-23] MEDS: Nystatin Oral Susp 500,000 UNIT/5 ML ORAL.SUSP 400000 UNIT BUCCAL ×3 (14:43→20:43)
--- NOTE | 2023-09-23 15:59 | PM.CNGS ---
History of Present Illness Consult details Consult date: 09/23/23 Narrative: Patient is a 73-year-old male with a tremendous plethora of medical problems including lung cancer which is being currently treated with chemotherapy, cirrhosis, significant smoking history, peripheral vascular disease, diabetes and a longstanding history of right-sided abdominal pain. Patient has been seen in the General surgery Clinic with Dr. Madrid regarding this pain and recommendation at that time was to be evaluated by chronic Pain Clinic. Patient is currently on lactulose and having bowel movements. In fact, during evaluation this afternoon he was quickly escorted to the bathroom because of loose dark stool. Chart was reviewed patient evaluated [facility] Past Medical History Medical History COPD (chronic obstructive pulmonary disease) Pneumonia Squamous cell carcinoma of lung (~2022) Lung cancer Renal calculi Alcohol abuse Diverticulitis Iliac artery aneurysm Surgical History Surgical History History of appendectomy (~1998) History of bowel resection (~1992) History of exploratory laparotomy (~2007) History of ERCP (~2017) History of abdominal surgery (~2017) History of bronchoscopy (~2022) History of colostomy reversal (~1992) Social History Social History Household Members: Spouse Unable to assess alcohol history related to: Unable to respond Alcohol intake: current Alcohol intake frequency: former alcohol drinker Alcohol type: beer and hard liquor Patient Tobacco Use Status: Never used Tobacco Tobacco use type: Cigarette service: No Meds Allergies Allergy/AdvReac Type Severity Reaction Status Date / Time Iodinated Contrast Media Allergy Unknown Hives Verified 09/21/23 18:24 [IV Dye, Iodine Containing] Active Medications: Current Medications Acetaminophen (Acetaminophen 325 Mg Tablet) 650 mg PO Q6H PRN PRN Reason: Pain, Mild (Pain Scale 1-3) Last Admin: 09/23/23 12:19 Dose: 650 mg Acetaminophen (Acetaminophen Supp 650 Mg Supp.Rect) 650 mg [place] Q6H PRN PRN Reason: Pain, Mild (Pain Scale 1-3) Aspirin (Aspirin Enteric Coated 81 Mg Tablet.) 81 mg PO DAILY [facility] Last Admin: 09/23/23 11:59 Dose: 81 mg Cyanocobalamin (Cyanocobalamin (Vitamin B-12) 1,000 Mcg Tablet) 1,000 mcg PO DAILY [facility] Last Admin: 09/23/23 11:59 Dose: 1,000 mcg Dextrose (Dextrose 50 % 25 Gm/50 Ml Syringe) 25 gm IVPUSH Q15M PRN; Protocol PRN Reason: per Hypoglycemia Standing Ord. Glucose (Glucose Gel 15 Gm Gel..Gram.) 15 gm PO Q15M PRN; Protocol PRN Reason: per Hypoglycemia Standing Ord. Insulin Human Lispro (Insulin Lispro 100 Unit/Ml 3 Ml Vial) 0 unit SUBCUT QIDACHS [facility]; Protocol Last Admin: 09/23/23 12:00 Dose: 4 unit Lactulose (Lactulose 20 Gm/30 Ml Solution) 20 gm PO QID [facility] Last Admin: 09/23/23 12:19 Dose: 20 gm Melatonin (Melatonin 3 Mg Tablet) 6 mg PO BEDTIME PRN PRN Reason: Insomnia Metformin HCl (Metformin Hcl Er 500 Mg Tab.Er.24h) 500 mg PO DAILY [facility] Last Admin: 09/23/23 12:00 Dose: Not Given Morphine Sulfate (Morphine Sulfate 2 Mg/Ml Cartridge) 2 mg IVPUSH Q4H PRN; Protocol PRN Reason: Pain, Severe (Pain Scale 7-10) Last Admin: 09/23/23 14:44 Dose: 2 mg Nystatin (Nystatin Oral Susp 500,000 Unit/5 Ml Oral.Susp) 400,000 unit [place] QID [facility]; Protocol Last Admin: 09/23/23 14:43 Dose: 400,000 unit Ondansetron HCl (Ondansetron Hcl 4 Mg/2 Ml Vial) 4 mg IVPUSH Q8H PRN PRN Reason: Nausea and Vomiting Oxycodone HCl (Oxycodone Hcl Immed Release 5 Mg Tablet) 5 mg PO Q8H PRN PRN Reason: severe pain Last Admin: 09/23/23 12:19 Dose: 5 mg Potassium Chloride (Potassium Chloride Er 20 Meq Tab.Er.Prt) 20 meq PO DAILY [facility] Last Admin: 09/23/23 11:59 Dose: 20 meq Sodium Chloride (0.9 % Sodium Chloride Flush 3 Ml Syringe) 3 ml IVFLUSH QSHIFT [facility] Last Admin: 09/23/23 07:56 Dose: 3 ml Vitamin D (Cholecalciferol (Vitamin D3) 25 Mcg Tablet) 50 mcg PO DAILY [facility] Last Admin: 09/23/23 12:00 Dose: 50 mcg Home Medications Medication Instructions Recorded Confirmed Last Taken Type blood sugar diagnostic (FreeStyle #10 ea 04/06/22 09/03/23 Unknown History Lite Strips) lancets 28 gauge (FreeStyle #100 ea 04/06/22 09/03/23 Unknown History Lancets) metformin 500 mg tablet,extended 500 mg PO DAILY 04/06/22 09/22/23 Unknown History release 24 hr cyanocobalamin (vitamin B-12) 1,000 mcg PO DAILY 12/07/22 09/22/23 Unknown History 1,000 mcg tablet aspirin 81 mg tablet,delayed 81 mg PO DAILY 12/19/22 09/22/23 Unknown History release oxycodone 5 mg tablet 5 mg PO Q8H PRN severe pain 04/23/23 09/22/23 Unknown History Physical Exam Vital Signs: Vital Signs: Last Vital Signs Temp 97.7 F 09/23/23 15:19 Pulse 91 09/23/23 15:19 Resp 18 09/23/23 15:19 BP 114/57 L 09/23/23 15:19 Pulse Ox 97 09/23/23 15:19 O2 Del Method Room Air 09/23/23 15:19 BMI result Body Mass Index 23.9 Const: Other: Very thin ill-appearing male. GI: Other: Abdomen soft, scaphoid, mild right side abdominal tenderness but no evidence of any guarding, rebound, rigidity. Results Labs 09/22/23 06:11 09/22/23 06:11 Labs: Abnormal lab results 09/22/23 09/22/23 09/22/23 Range/Units 00:10 16:30 23:31 POC Glucose 150 H 141 H (60-115) mg/dL Ur Specific [place] >= 1.030 H (1.005-1.025) Urine Protein 100 (2+) H (Neg-Trace) mg/dL Urine Glucose (UA) 250 H (Negative) mg/dL Urine Blood Moderate (2+) H (Negative) 09/23/23 09/23/23 09/23/23 Range/Units 06:29 07:13 10:55 POC Glucose 158 H 147 H 202 H (60-115) mg/dL Ur Specific [place] (1.005-1.025) Urine Protein (Neg-Trace) mg/dL Urine Glucose (UA) (Negative) mg/dL Urine Blood (Negative) Urine 09/22/23 Range/Units 00:10 Urine Color Yellow Urine Appearance Clear Urine pH 6.0 (5.0-9.0) Ur Specific [place] >= 1.030 H (1.005-1.025) Urine Protein 100 (2+) H (Neg-Trace) mg/dL Urine Glucose (UA) 250 H (Negative) mg/dL All other labs normal. Assessment and Plan (1) Right sided abdominal pain: Status: Acute Plan Is unclear whether the patient's current symptoms are his chronic abdominal pain or perhaps other pathology. CT scan was essentially within normal limits. At present, because of the patient's significant comorbidities, and no obvious surgical pathology, no acute surgical interventions are required. Procedures Date of Service Date of Service: 09/23/23
[2023-09-23 16:29] LABS: Glucose, Whole Blood 187 mg/dL (60-115)
[2023-09-23 20:05] LABS: Glucose, Whole Blood 147 mg/dL (60-115)
[2023-09-24] VITALS (70 sets, daily range): BP systolic 60–156; BP diastolic 16–94; PULSE 100–150; RESP 19–32; TEMP 34.5–39; O2SAT 89–100
[2023-09-24] MEDS: Acetaminophen 325 MG TABLET 650 MG PO (03:31)
--- NOTE | 2023-09-24 03:45 | PM.EVENT ---
Event Note Date of Service: 09/24/23 Event Note: Nurse reported rectal temperature 102.2 degrees. Unclear etiology. Obtaining chest x-ray, morning labs including CMP and CBC, lactic acid. Also ordered blood cultures. Noted negative UA from 09/22 Time Spent With Patient Time: Total time managing care of this patient today ____ minutes.
--- NOTE | 2023-09-24 04:30 | PC.NURSE ---
Addendum entered by Denise Ball RN 09/24/23 06:04: Critical lab results came at 0602, WBC 0.2, PLt Ct=27, Dr. Lomeli was updated Addendum entered by Denise Ball RN 09/24/23 05:57: Critical LActic acid came at 3.8 at 0554, Dr. Lomeli was notified. Addendum entered by Denise Ball RN 09/24/23 04:50: STAT blood culture also ordered, awaiting for blood to be drawn. Addendum entered by Denise Ball RN 09/24/23 04:43: At 0340, pt woke up with a fever of 102.2 orally, gave prn Tylenol po, Dr. Lomeli was updated, STAT CXR done, STAT LActic Acid was ordered, awaiting for phleb. Original Note: At first encounter at 2039, pt was having audible crackles , pt claimed mild SOB, O2 sats =93% RA, Dr. Lomeli was made aware.
[2023-09-24] MEDS: oxyCODONE HCl Immed Release 5 MG TABLET PO (04:54)
[2023-09-24 05:35] LABS: Hematocrit 30.2 % (42.0-52.0); Hemoglobin 9.9 g/dl (14.0-18.0); Mean Corpuscular HGB Conc 32.8 g/dl (31.0-36.0); Mean Corpuscular Hemoglobin 29.4 pg (27.0-33.0); Mean Corpuscular Volume 89.6 fL (80.0-98.0); Mean Platelet Volume 12.8 fL (9.4-12.4); Red Blood Count 3.37 X10*6/uL (4.60-5.80); Red Cell Distribution Width 16.4 % (11.0-16.0)
[2023-09-24 05:53] LABS: Alanine Aminotransferase 21 U/L (0-40); Albumin Level 2.7 g/dL (3.5-5.0); Alkaline Phosphatase 96 U/L (39-117); Anion Gap 14 (12-20); Aspartate Amino Transferase 20 U/L (5-37); Bilirubin Total 1.1 mg/dL (0.0-1.0); Blood Urea Nitrogen 26 mg/dL (9-16); Calcium 9.6 mg/dL (8.4-10.2); Carbon Dioxide 17 mmol/L (22-29); Chloride 108 mmol/L (96-108); Creatinine Clr Calc Pharmacy 48.9; Estimated Glomerular Filt Rate 57; Glucose Random 213 mg/dL (60-115); Potassium 3.6 mmol/L (3.3-5.1); Sodium 135 mmol/L (135-145); Total Protein 5.9 g/dL (6.5-8.0)
[2023-09-24 06:00] LABS: Lactic Acid 3.8 mmol/L (0.5-2.0); Platelet Count 27 X10*3/uL (160-400)
[2023-09-24 06:03] LABS: White Blood Count 0.2 X10*3/uL (4.8-10.8)
[2023-09-24] MEDS: 0.9 % Sodium Chloride 1,000 ML 999 ML IV (06:26)
[2023-09-24 06:45] LABS: Band Neutrophils Percent 0 % (3-5); Eosinophils Percent Manual 8 % (0-4); Lymphocytes Absolute Manual 0.2 X10*3/uL (1.2-4.9); Lymphocytes Percent Manual 80 % (20-40); Monocytes Percent Manual 8 % (2-11); Neutrophils Percent Manual 4 % (45-73)
[2023-09-24 06:46] LABS: RBC Morphology NOTED
[2023-09-24 06:48] LABS: Burr Cells 2+ (3-5) /OIF; Macrocytosis 1+ (5-14) /OIF; Ovalocytes 1+ (5-14) /OIF; Tear Drop Cells 1+ (0-2) /OIF
[2023-09-24 06:49] LABS: Large Platelet PRESENT; Platelet Estimate DECREASED (NORMAL); Platelet Morphology Comment NOTED; Smudge Cells PRESENT
[2023-09-24 06:51] LABS: Schistocytes 1+ (0-2) /OIF
[2023-09-24 07:14] LABS: Glucose, Whole Blood 153 mg/dL (60-115)
[2023-09-24 07:30] LABS: Reflex Lactate? Lactic Acid Added
[2023-09-24] MEDS: Morphine Sulfate 2 MG/ML CARTRIDGE IVPUSH (07:35)
--- NOTE | 2023-09-24 08:08 | P.PNGS_ITS ---
Subjective Subjective Date of Service: 09/24/23 <Beatriz Gray PA-C - Last Filed: 09/24/23 08:14> 09/24/23 <Da Quach MD - Last Filed: 09/24/23 15:24> Interval history: Febrile, tachycardic this am. Patient is a very poor historian. Reports feeling generally unwell, c/o abdominal pain but unable to elaborate further. Continues to have loose, nonbloody stools per RN. <Beatriz Gray PA-C - Last Filed: 09/24/23 08:14> Physical Exam 2 Vital Signs: Vital Signs: Last Vital Signs Temp 97.8 F 09/24/23 07:05 Pulse 100 09/24/23 07:05 Resp 20 09/24/23 07:05 BP 156/94 H 09/24/23 03:08 Pulse Ox 93 09/24/23 07:05 O2 Del Method Room Air 09/24/23 07:05 BMI result Body Mass Index 23.9 <ELLIOTT Jacobo Last Filed: 09/24/23 08:14> Const: General: comfortable, no acute distress and alert <ELLIOTT Jacobo Last Filed: 09/24/23 08:14> Resp: Other: audible crackles <ELLIOTT Jacobo Last Filed: 09/24/23 08:14> Effort & Inspection: normal respiratory effort <ELLIOTT Jacobo Last Filed: 09/24/23 08:14> GI: Inspection: No distended and Yes scar (multiple midline and right sided scars) <Beatriz Gray PA-C - Last Filed: 09/24/23 08:14> Palpation (GI): Soft to palpation, Tenderness to palpation present (GI) (diffuse tenderness), no guarding and not rigid <ELLIOTT Jacobo Last Filed: 09/24/23 08:14> Percussion: Yes normal to percussion <ELLIOTT Jacobo Last Filed: 09/24/23 08:14> Skin: General skin exam: no rashes or lesions noted <ELLIOTT Jacobo Last Filed: 09/24/23 08:14> Neuro: General: moves all extremities <Beatriz Gray PA-C - Last Filed: 09/24/23 08:14> Objective Data Active Medications Acetaminophen (Acetaminophen 325 Mg Tablet) 650 mg PO Q6H PRN PRN Reason: Pain, Mild (Pain Scale 1-3) Last Admin: 09/24/23 03:31 Dose: 650 mg Documented By: MONTY Acetaminophen (Acetaminophen Supp 650 Mg Supp.Rect) 650 mg [place] Q6H PRN PRN Reason: Pain, Mild (Pain Scale 1-3) Aspirin (Aspirin Enteric Coated 81 Mg Tablet.Dr) 81 mg PO DAILY [facility] Last Admin: 09/23/23 11:59 Dose: 81 mg Documented By: CANDY Cyanocobalamin (Cyanocobalamin (Vitamin B-12) 1,000 Mcg Tablet) 1,000 mcg PO DAILY [facility] Last Admin: 09/23/23 11:59 Dose: 1,000 mcg Documented By: CANDY Dextrose (Dextrose 50 % 25 Gm/50 Ml Syringe) 25 gm IVPUSH Q15M PRN; Protocol PRN Reason: per Hypoglycemia Standing Ord. Glucose (Glucose Gel 15 Gm Gel..Gram.) 15 gm PO Q15M PRN; Protocol PRN Reason: per Hypoglycemia Standing Ord. Insulin Human Lispro (Insulin Lispro 100 Unit/Ml 3 Ml Vial) 0 unit SUBCUT QIDACHS [facility]; Protocol Last Admin: 09/23/23 20:34 Dose: Not Given Documented By: MONTY Non-Admin Reason: No Insulin Coverage Comments: POC 147 Lactulose (Lactulose 20 Gm/30 Ml Solution) 20 gm PO QID [facility] Last Admin: 09/23/23 20:43 Dose: 20 gm Documented By: MONTY Melatonin (Melatonin 3 Mg Tablet) 6 mg PO BEDTIME PRN PRN Reason: Insomnia Metformin HCl (Metformin Hcl Er 500 Mg Tab.Er.24h) 500 mg PO DAILY [facility] Last Admin: 09/23/23 12:00 Dose: Not Given Documented By: CANDY Non-Admin Reason: had ct with contrast 09/22. Morphine Sulfate (Morphine Sulfate 2 Mg/Ml Cartridge) 2 mg IVPUSH Q4H PRN; Protocol PRN Reason: Pain, Severe (Pain Scale 7-10) Last Admin: 09/24/23 07:35 Dose: 2 mg Documented By: CANDY Nystatin (Nystatin Oral Susp 500,000 Unit/5 Ml Oral.Susp) 400,000 unit BUCCAL QID [facility]; Protocol Last Admin: 09/23/23 20:43 Dose: 400,000 unit Documented By: MONTY Ondansetron HCl (Ondansetron Hcl 4 Mg/2 Ml Vial) 4 mg IVPUSH Q8H PRN PRN Reason: Nausea and Vomiting Oxycodone HCl (Oxycodone Hcl Immed Release 5 Mg Tablet) 5 mg PO Q8H PRN PRN Reason: severe pain Last Admin: 09/24/23 04:54 Dose: 5 mg Documented By: MONTY Potassium Chloride (Potassium Chloride Er 20 Meq Tab.Er.Prt) 20 meq PO DAILY [facility] Last Admin: 09/23/23 11:59 Dose: 20 meq Documented By: CANDY Sodium Chloride (0.9 % Sodium Chloride Flush 3 Ml Syringe) 3 ml IVFLUSH QSHIFT [facility] Last Admin: 09/23/23 20:44 Dose: 3 ml Documented By: MONTY Vitamin D (Cholecalciferol (Vitamin D3) 25 Mcg Tablet) 50 mcg PO DAILY [facility] Last Admin: 09/23/23 12:00 Dose: 50 mcg Documented By: CANDY <Beatriz Gray PA-C - Last Filed: 09/24/23 08:14> Labs CBC & Chem 7: 09/24/23 09:07 09/24/23 09:07 <Beatriz Gray PA-C - Last Filed: 09/24/23 08:14> Labs: Laboratory Results - last 24 hr 09/23/23 09/23/23 09/23/23 08:10 10:55 16:25 MCV MCH MCHC RDW Plt Count MPV Immature Gran % (Auto) Neut % (Auto) Lymph % (Auto) [place] % (Auto) Eos % (Auto) Baso % (Auto) Lymph # (Auto) [place] # (Auto) Eos # (Auto) Baso # (Auto) Abs Immat Gran (auto) Absolute Neuts (auto) Absolute Nucleated RBC Nucleated RBC % (auto) Neutrophils % (Manual) Band Neutrophils % Lymphocytes % (Manual) Monocytes % (Manual) Eosinophils % (Manual) Abs Neuts (Manual) Lymphocytes # (Manual) Smudge Cells Platelet Estimate Large Platelets Plt Morphology Comment RBC Morphology Macrocytosis Tear Drop Cells Ovalocytes [place] Cells Schistocytes Anion Gap Estim Creat Clear Calc Estimated GFR POC Glucose 202 H 187 H Random Glucose Lactic Acid Calcium Total Bilirubin AST ALT Alkaline Phosphatase Ammonia 44 Total Protein Albumin 09/23/23 09/24/23 09/24/23 19:59 05:12 07:10 MCV 89.6 MCH 29.4 MCHC 32.8 RDW 16.4 H Plt Count 27 L D MPV 12.8 H Immature Gran % (Auto) Cancelled Neut % (Auto) Cancelled Lymph % (Auto) Cancelled [place] % (Auto) Cancelled Eos % (Auto) Cancelled Baso % (Auto) Cancelled Lymph # (Auto) Cancelled [place] # (Auto) Cancelled Eos # (Auto) Cancelled Baso # (Auto) Cancelled Abs Immat Gran (auto) Cancelled Absolute Neuts (auto) Cancelled Absolute Nucleated RBC 0.000 Nucleated RBC % (auto) 0.0 Neutrophils % (Manual) 4 L Band Neutrophils % 0 L Lymphocytes % (Manual) 80 H Monocytes % (Manual) 8 Eosinophils % (Manual) 8 H Abs Neuts (Manual) Not Reportable Lymphocytes # (Manual) 0.2 L Smudge Cells PRESENT Platelet Estimate DECREASED Large Platelets PRESENT Plt Morphology Comment NOTED RBC Morphology NOTED Macrocytosis 1+ (5-14) Tear Drop Cells 1+ (0-2) Ovalocytes 1+ (5-14) [place] Cells 2+ (3-5) Schistocytes 1+ (0-2) Anion Gap 14 Estim Creat Clear Calc 48.9 Estimated GFR 57 POC Glucose 147 H 153 H Random Glucose 213 H Lactic Acid 3.8 H* Calcium 9.6 Total Bilirubin 1.1 H AST 20 ALT 21 Alkaline Phosphatase 96 Ammonia Total Protein 5.9 L Albumin 2.7 L <Beatriz Gray PA-C - Last Filed: 09/24/23 08:14> Procedures Date of Service Date of Service: 09/24/23 <Beatriz Gray PA-C - Last Filed: 09/24/23 08:14> 09/24/23 <Da Quach MD - Last Filed: 09/24/23 15:24> Progress Note: A&P Assessment and plan (1) Right sided abdominal pain: Status: Acute <Beatriz Gray PA-C - Last Filed: 09/24/23 08:14> Assessment and Plan: Has history of right sided abdominal pain, but question of colonic wall thickening on CT scan yesterday. Now febrile with lactic acidosis. He has diffuse abdominal tenderness without any peritoneal signs. Would recommend starting empiric IV zosyn, stool studies. Will continue to follow. <Beatriz Gray PA-C - Last Filed: 09/24/23 08:14> Has history of right sided abdominal pain, but question of colonic wall thickening on CT scan yesterday. Now febrile with lactic acidosis. He has diffuse abdominal tenderness without any peritoneal signs. Would recommend starting empiric IV zosyn, stool studies. Will continue to follow. Patient is very cachectic, ill, frail with extensive significant comorbidities. He is not a surgical candidate irrespective of any acute pathology may develop. 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 <Beatriz Gray PA-C - Last Filed: 09/24/23 08:14> Quality Stroke Does the patient have a stroke diagnosis?: No <Beatriz Gray PA-C - Last Filed: 09/24/23 08:14> VTE Prior VTE?: No <Beatriz Gray PA-C - Last Filed: 09/24/23 08:14> VTE Risk Level:: Medical - moderate - high <Beatriz Gray PA-C - Last Filed: 09/24/23 08:14> VTE Device Contraindication: N/A - Device Ordered <Beatriz Gray PA-C - Last Filed: 09/24/23 08:14> VTE Drug Contraindication: Treatment Not Indicated <Beatriz Gray PA-C - Last Filed: 09/24/23 08:14>
[2023-09-24 08:54] LABS: Glucose, Whole Blood 152 mg/dL (60-115)
--- NOTE | 2023-09-24 09:00 | ECG_ITS ---
Test Reason : EKG changes Blood Pressure : / mmHG Vent. Rate : 124 BPM Atrial Rate : 124 BPM P-R Int : 176 ms QRS Dur : 094 ms QT Int : 288 ms P-R-T Axes : 004 011 134 degrees QTc Int : [address] & T wave abnormality, consider anterolateral ischemia Abnormal ECG When compared with ECG of 21-SEP-2023 19:57, ST now depressed in Lateral leads Nonspecific T wave abnormality, improved in Inferior leads Referred By: Dante Pritchett Electronically Signed By:MELY ANGELES MD
[2023-09-24] MEDS: 0.9 % Sodium Chloride 1,000 ML 999 ML IVCONT ×4 (09:04→12:31)
[2023-09-24] MEDS: 0.9 % Sodium Chloride Flush 3 ML SYRINGE IVFLUSH ×2 (09:05→15:36)
[2023-09-24] MEDS: Piperacillin Sodium/Tazobactam 3.375 GM in 0.9 % Sodium Chloride 50 ML IV ×2 (09:06→16:35)
[2023-09-24 09:18] LABS: Hematocrit 28.9 % (42.0-52.0); Hemoglobin 9.5 g/dl (14.0-18.0); Mean Corpuscular HGB Conc 32.9 g/dl (31.0-36.0); Mean Corpuscular Hemoglobin 29.9 pg (27.0-33.0); Mean Corpuscular Volume 90.9 fL (80.0-98.0); Red Blood Count 3.18 X10*6/uL (4.60-5.80); Red Cell Distribution Width 16.5 % (11.0-16.0)
[2023-09-24 09:19] LABS: Platelet Count 24 X10*3/uL (160-400)
[2023-09-24 09:28] LABS: Anion Gap 11 (12-20); Blood Urea Nitrogen 28 mg/dL (9-16); Calcium 9.1 mg/dL (8.4-10.2); Carbon Dioxide 18 mmol/L (22-29); Chloride 111 mmol/L (96-108); Creatinine Clr Calc Pharmacy 46.3; Estimated Glomerular Filt Rate 53; Glucose Random 154 mg/dL (60-115); Potassium 3.3 mmol/L (3.3-5.1); Sodium 137 mmol/L (135-145); White Blood Count 0.3 X10*3/uL (4.8-10.8)
[2023-09-24 09:37] LABS: ~Lactic Acid-LAB USE ONLY 3.7 mmol/L (0.5-2.0)
[2023-09-24] MEDS: Albumin Human 25 % 100 ML IV ×4 (09:42→23:01)
--- NOTE | 2023-09-24 09:47 | PM.CCN ---
Critical Care Event Note Summary Date of Service: 09/24/23 Code activated: No Narrative: Discussed with Dr. Pichardo at approximately 09:00 a.m. - neutropenic from chemotherapy, now with what appears to be septic shock. Broad-spectrum antibiotics including Zosyn and vancomycin. Additional IV albumin. IV crystalloid bolus. If no response to initial IV fluid/ albumin resuscitation will transfer to intensive care unit. Full consult to follow. Critical Care Time (minutes): 0
--- NOTE | 2023-09-24 10:35 | PC.NURSE ---
1030 called EMILIANO German on S3 to check patient's status after COUNT ROOM CLERK. RN stated that SBP 89/54 after 1st bolus. An additional bolus and albumin to be given. Patient has orders to transfer to [facility] for continued monitoring. Dr Pritchett from ICU has evaluated patient, see note. Lactic acid level repeated 3.7 from 3.8. Advised nurse to report off to next nurse that I am available for any questions or concerns.
[2023-09-24 11:10] LABS: Reflex Lactate? 2 Y
--- NOTE | 2023-09-24 11:24 | PC.NURSE ---
Patient hypotensive, tachycardic, febrile. Dr. Pichardo in to assess patient. Rapid Response called. IV bolus, antibiotics and albumin ordered. 2 new IV access inserted. BP improved to 89/54 immediately after completion of 1st bolus @ 0951. Reassessed @ 1039 94/50. Bolus #2 up immediately. AM meds held pending swallow eval. Report given to Nyla CUMMINGS Med-Tele.
[2023-09-24 11:27] LABS: Glucose, Whole Blood 144 mg/dL (60-115)
[2023-09-24] MEDS: vancomycin HCL 1,500 MG in 0.9 % Sodium Chloride 500 ML 333.33 MG IV (11:32)
--- NOTE | 2023-09-24 12:05 | PHA.PROG ---
Admission Date/Time: September 22, 2023 00:33 Indication: SEPSIS Weight in k.2 kg Adjusted body weight in K.16 Jal body weight in Kg: Obesity Dosing Indication % IBW: Serum Creatinine - Last 168 Hours 09/21/23 09/22/23 09/24/23 18:59 06:11 05:12 Creatinine 0.78 0.79 1.25 09/24/23 09:07 Creatinine 1.32 Estimated CrCl and GFR - Last 168 Hours 09/21/23 09/22/23 09/24/23 18:59 06:11 05:12 Estim Creat Clear Calc 78.3 77.3 48.9 Estimated GFR > 60 > 60 57 09/24/23 09:07 Estim Creat Clear Calc 46.3 Estimated GFR 53 Vancomycin Loading Dose:1500 MG Current Vancomycin Dosing Regimen: 1000MG Q24H Vancomycin Monitoring using AUC goal of 400 - 600 range with trough as surrogate marker: AUC 448, TROUGH 13.5 Date and Time for next Vancomycin Level to be drawn: 09/26 @1000 Pharmacist Comments on Vancomycin Plan: SCR STEADILY RISING, ROUGHLY DOUBLE FROM ADMISSION TROUGH AFTER 2 DOSES TO ASSESS SAFETY, NOT EFFICACY Vancomycin dosing will take advantage of [employer] as a clinical decision support tool that uses Bayesian modeling to calculate individual patient's pharmacokinetic parameters and forecast the patient's drug concentration time course with the target goal AUC 24 range of 400 - 600 mg/L/hr.
[2023-09-24 12:06] LABS: ~Lactic Acid-LAB USE ONLY 4.9 mmol/L (0.5-2.0)
--- NOTE | 2023-09-24 12:29 | HO.PM.IMPN ---
Subjective Subjective Date of Service: 09/24/23 Interval History: severe sepsis with hypotension Review of Systems poor histoiran rapid response called -bp in 70-80 range ,sats fine not sob pain nonspecific -almost whole body fever since last night Physical Exam Vital Signs: Vital Signs: Last Vital Signs Temp 100.4 F 09/24/23 11:32 Pulse 132 H 09/24/23 12:28 Resp 19 09/24/23 11:32 BP 71/48 L 09/24/23 12:28 Pulse Ox 91 L 09/24/23 11:32 O2 Del Method Room Air 09/24/23 11:32 BMI result Body Mass Index 23.9 physical exam: Appearance: Alert.? Oriented X1.? cvs: rrr, [id number] . res: air entry diminshed ,has mild gargly noices. abd: no rebound or guarding ,nt, bs present. ext pulses present , no cyanosis, no edema . neuro: moves allextermities. Objective Data Active Medications Acetaminophen (Acetaminophen 325 Mg Tablet) 650 mg PO Q6H PRN PRN Reason: Pain, Mild (Pain Scale 1-3) Last Admin: 09/24/23 03:31 Dose: 650 mg Documented By: MONTY Acetaminophen (Acetaminophen Supp 650 Mg Supp.Rect) 650 mg [place] Q6H PRN PRN Reason: Pain, Mild (Pain Scale 1-3) Aspirin (Aspirin Enteric Coated 81 Mg Tablet.Dr) 81 mg PO DAILY [facility] Last Admin: 09/24/23 11:18 Dose: Not Given Documented By: CANDY Non-Admin Reason: See Note Cyanocobalamin (Cyanocobalamin (Vitamin B-12) 1,000 Mcg Tablet) 1,000 mcg PO DAILY [facility] Last Admin: 09/24/23 11:18 Dose: Not Given Documented By: CANDY Non-Admin Reason: See Note Dextrose (Dextrose 50 % 25 Gm/50 Ml Syringe) 25 gm IVPUSH Q15M PRN; Protocol PRN Reason: per Hypoglycemia Standing Ord. Glucose (Glucose Gel 15 Gm Gel..Gram.) 15 gm PO Q15M PRN; Protocol PRN Reason: per Hypoglycemia Standing Ord. Piperacillin Sod/Tazobactam (Sod 3.375 gm/ Sodium Chloride) 50 mls @ 100 mls/hr IV Q6H [facility] Last Infusion: 09/24/23 10:33 Dose: Infused Documented By: CANDY Sodium Chloride (Ns) 1,000 mls @ 100 mls/hr IVCONT .Q10H [facility] Potassium Chloride (Potassium Chloride/H20) 10 meq in 100 mls @ 100 mls/hr IV Q1H [facility] Stop: 09/24/23 13:59 Vancomycin HCl 1,000 mg/ (Sodium Chloride) 270 mls @ 270 mls/hr IV Q24H [facility] Sodium Chloride (Ns) 1,000 mls @ 999 mls/hr IVCONT .Q1H1M [facility] Stop: 09/24/23 14:30 Insulin Human Lispro (Insulin Lispro 100 Unit/Ml 3 Ml Vial) 0 unit SUBCUT QIDACHS [facility]; Protocol Last Admin: 09/24/23 09:07 Dose: Not Given Documented By: CANDY Non-Admin Reason: not eating breakfast Lactulose (Lactulose 20 Gm/30 Ml Solution) 20 gm PO QID [facility] Last Admin: 09/24/23 11:18 Dose: Not Given Documented By: CANDY Non-Admin Reason: See Note Melatonin (Melatonin 3 Mg Tablet) 6 mg PO BEDTIME PRN PRN Reason: Insomnia Nystatin (Nystatin Oral Susp 500,000 Unit/5 Ml Oral.Susp) 400,000 unit BUCCAL QID [facility]; Protocol Last Admin: 09/24/23 11:18 Dose: Not Given Documented By: CANDY Non-Admin Reason: See Note Ondansetron HCl (Ondansetron Hcl 4 Mg/2 Ml Vial) 4 mg IVPUSH Q8H PRN PRN Reason: Nausea and Vomiting Pantoprazole Sodium (Pantoprazole Sodium 40 Mg/10 Ml Vial) 40 mg IVPUSH DAILY@0630 [facility] Pharmacy Consult (Consult Rx Vancomycin Dosing) 1 each MISCELLANE DAILY PRN PRN Reason: Consult order Potassium Chloride (Potassium Chloride Er 20 Meq Tab.Er.Prt) 20 meq PO DAILY [facility] Last Admin: 09/24/23 11:19 Dose: Not Given Documented By: CANDY Non-Jarrett Reason: See Note Sodium Chloride (0.9 % Sodium Chloride Flush 3 Ml Syringe) 3 ml IVFLUSH QSHIFT [facility] Last Admin: 09/24/23 09:05 Dose: 3 ml Documented By: CANDY Vitamin D (Cholecalciferol (Vitamin D3) 25 Mcg Tablet) 50 mcg PO DAILY [facility] Last Admin: 09/24/23 11:18 Dose: Not Given Documented By: CANDY Non-Admin Reason: See Note Labs 09/24/23 09:07 09/24/23 09:07 Labs: Laboratory Results - last 24 hr 09/23/23 09/23/23 09/24/23 16:25 19:59 05:12 MCV 89.6 MCH 29.4 MCHC 32.8 RDW 16.4 H Plt Count 27 L D MPV 12.8 H Immature Gran % (Auto) Cancelled Neut % (Auto) Cancelled Lymph % (Auto) Cancelled [place] % (Auto) Cancelled Eos % (Auto) Cancelled Baso % (Auto) Cancelled Lymph # (Auto) Cancelled [place] # (Auto) Cancelled Eos # (Auto) Cancelled Baso # (Auto) Cancelled Abs Immat Gran (auto) Cancelled Absolute Neuts (auto) Cancelled Absolute Nucleated RBC 0.000 Nucleated RBC % (auto) 0.0 Neutrophils % (Manual) 4 L Band Neutrophils % 0 L Lymphocytes % (Manual) 80 H Monocytes % (Manual) 8 Eosinophils % (Manual) 8 H Abs Neuts (Manual) Not Reportable Lymphocytes # (Manual) 0.2 L Smudge Cells PRESENT Platelet Estimate DECREASED Large Platelets PRESENT Plt Morphology Comment NOTED RBC Morphology NOTED Macrocytosis 1+ (5-14) Tear Drop Cells 1+ (0-2) Ovalocytes 1+ (5-14) [place] Cells 2+ (3-5) Schistocytes 1+ (0-2) Smear Path Review SEE NOTE Anion Gap 14 Estim Creat Clear Calc 48.9 Estimated GFR 57 POC Glucose 187 H 147 H Random Glucose 213 H Lactic Acid 3.8 H* Lactic Acid F/U @ 2Hr Lactic Acid F/U @ 4Hr Calcium 9.6 Total Bilirubin 1.1 H AST 20 ALT 21 Alkaline Phosphatase 96 Total Protein 5.9 L Albumin 2.7 L Hold Yellow Top 09/24/23 09/24/23 09/24/23 07:10 08:50 09:07 MCV 90.9 MCH 29.9 MCHC 32.9 RDW 16.5 H Plt Count 24 L MPV 13.0 H Immature Gran % (Auto) Neut % (Auto) Lymph % (Auto) [place] % (Auto) Eos % (Auto) Baso % (Auto) Lymph # (Auto) [place] # (Auto) Eos # (Auto) Baso # (Auto) Abs Immat Gran (auto) Absolute Neuts (auto) Absolute Nucleated RBC 0.000 Nucleated RBC % (auto) 0.0 Neutrophils % (Manual) Band Neutrophils % Lymphocytes % (Manual) Monocytes % (Manual) Eosinophils % (Manual) Abs Neuts (Manual) Lymphocytes # (Manual) Smudge Cells Platelet Estimate Large Platelets Plt Morphology Comment RBC Morphology Macrocytosis Tear Drop Cells Ovalocytes [place] Cells Schistocytes Smear Path Review Anion Gap 11 L Estim Creat Clear Calc 46.3 Estimated GFR 53 POC Glucose 153 H 152 H Random Glucose 154 H Lactic Acid Lactic Acid F/U @ 2Hr 3.7 H* Lactic Acid F/U @ 4Hr Calcium 9.1 Total Bilirubin AST ALT Alkaline Phosphatase Total Protein Albumin Hold Yellow Top See Note 09/24/23 09/24/23 11:19 11:24 MCV MCH MCHC RDW Plt Count MPV Immature Gran % (Auto) Neut % (Auto) Lymph % (Auto) [place] % (Auto) Eos % (Auto) Baso % (Auto) Lymph # (Auto) [place] # (Auto) Eos # (Auto) Baso # (Auto) Abs Immat Gran (auto) Absolute Neuts (auto) Absolute Nucleated RBC Nucleated RBC % (auto) Neutrophils % (Manual) Band Neutrophils % Lymphocytes % (Manual) Monocytes % (Manual) Eosinophils % (Manual) Abs Neuts (Manual) Lymphocytes # (Manual) Smudge Cells Platelet Estimate Large Platelets Plt Morphology Comment RBC Morphology Macrocytosis Tear Drop Cells Ovalocytes [place] Cells Schistocytes Smear Path Review Anion Gap Estim Creat Clear Calc Estimated GFR POC Glucose 144 H Random Glucose Lactic Acid Lactic Acid F/U @ 2Hr Lactic Acid F/U @ 4Hr 4.9 H* Calcium Total Bilirubin AST ALT Alkaline Phosphatase Total Protein Albumin Hold Yellow Top Assessment and Plan (1) Sepsis: Status: Acute Plan 73-year-old male with pertinent history of alcoholic liver cirrhosis, right lung cancer status post resection and chemotherapy, COPD not on home oxygen, [id number]-[id number] diabetes mellitus, mixed hyperlipidemia who was brought to the emergency department for evaluation of altered mentation. Patient met possible severe sepsis with hypotension multifcatorial sec to possible aspirational pneumonia,also neurtropenic fever, also decreased po intake from few days. tachycardia,neutropenia ,hypotension,mild trip pancytopenia -multifactorial ( chemo ,cirrosis ) febrile lactic acid 3.8 -3.7 trend lactic acid, blood culture sent,ua ordered . d/w Icu -3 liter ns given -4th liter going ,also given albumin ,added vanco/zosyn Metabolic encephalopathy d/t hepatic encephalopathy, aox1 ,unable to tell much info says pain all body ammonia down to normal ct abd -right sided colon thickening added ct head speech and swallow continue lactulose , moniter mental status ct abd -right sided colon thickening: abd pain chronic? recomended start zosyn surgery followin chest pain ninspecific /ekg st inersions( anteriorlateral leads) trend troponins echo consider cardiology eval. currently might not able to get blood thinner ( due to severe thrombocytopenia),bb avoid due to hypotension Hypokalemia: resolved with replacement Arp-wmluggs-yagrkhyht diabetes mellitus with hyperglycemia:fs with SSI, hold metformin due to lactic acidosis . pancytopenia: multifcatorial of cirrhosis, chronic /chemo recent. moniter closely DVT prophylaxis: Mechanical d/t to low plat Above management discussed with ICU in detail length-patient need ICU level of care due to multiple issues including severe sepsis with hypotension, pancytopenia, neutropenic fever-need ICU level of care. Quality Stroke Does the patient have a stroke diagnosis?: No VTE Prior VTE?: No VTE Risk Level:: Medical - moderate - high VTE Device Contraindication: N/A - Device Ordered VTE Drug Contraindication: Treatment Not Indicated
[2023-09-24 12:48] LABS: Ammonia 55 umol/L (13-55)
[2023-09-24 13:12] LABS: Troponin-I High Sensitivity 176.4 ng/L (<3.5-35.0)
--- NOTE | 2023-09-24 13:14 | PC.NURSE ---
Pt arrived to unit around 1100. Pt assessed and vitals taken. BP 91/50, HR 130s. 3rd liter of NS running, 1/4th full. Pt AOx2, stating he feels zuleika . At around 1200, pt seeming more confused, repeating dolor and pointing to abdomen. Pt not answering questions. Pt restless and writhing in bed. Vitals taken again with manual BP 71/48, HR 130s. MD notified. 4th liter of NS started and hung via pressure bag. Hospitalist and ICU provider at bedside assessing pt. Decision made to transfer to ICU. Report given to ICU nurse Hilda. Pt transferred off unit to ICU.
[2023-09-24] MEDS: Phenylephrine HCL 20 MG in 0.9 % Sodium Chloride 250 ML 25.4 MG IVCONT (13:27)
[2023-09-24] MEDS: Lactulose 20 GM/30 ML SOLUTION PO (13:58)
[2023-09-24] MEDS: Potassium Chloride/H20 10 MEQ/100 ML PIGGYBACK 100 MEQ IV ×2 (13:58→15:28)
[2023-09-24] MEDS: Nystatin Oral Susp 500,000 UNIT/5 ML ORAL.SUSP 400000 UNIT BUCCAL ×2 (13:58→21:39)
[2023-09-24] MEDS: Pantoprazole Sodium 40 MG/10 ML VIAL IVPUSH (13:58)
[2023-09-24] MEDS: Norepinephrine Bitartrate/D5W 8 MG/250 ML PLAST..BAG 2.52 MG IV (14:45)
[2023-09-24] MEDS: Phenylephrine HCL 20 MG in 0.9 % Sodium Chloride 250 ML 304.82 MG IVCONT (14:59)
[2023-09-24] MEDS: Midazolam HCl/PF 2 MG/2 ML VIAL IVPUSH ×2 (15:03→15:12)
--- NOTE | 2023-09-24 15:26 | MHC.SLORD ---
Speech Language Pathology Order Status: Per RN, Pt not appropriate as of 15:00 this date. LOADING DOCK HELPER will attempt tomorrow morning.
--- NOTE | 2023-09-24 15:42 | W.PM.CCHP ---
Procedures Date of Service Date of Service: 09/24/23 Central Line Placement Right IJ: Central Line Comments: After obtaining informed consent right internal jugular triple-lumen central venous catheter placed for pressor support under ultrasound guidance and usual sterile conditions with no immediate complications. X-ray for line position is pending.
--- NOTE | 2023-09-24 15:56 | PM.CCPN ---
Subjective Subjective Date of Service: 09/24/23 Interval History: 73-year-old gentleman with underlying squamous cell carcinoma of the lung on chemotherapy, last approximately 1 week prior, also alcoholic cirrhosis, diabetes mellitus admitted on 09/22/2023 for encephalopathy. Patient was started on lactulose for hyperammonemia with some improvement in his mental status, however further hospital course complicated by development of policy opinion with neutropenia and shock with poor response to IV fluids and colitis requiring initiation of pressor support and transfer to intensive care unit. Critical Care Time (minutes): 90 Physical Exam Vital Signs: Vital Signs: Last Vital Signs Temp 100.4 F 09/24/23 11:32 Pulse 126 H 09/24/23 14:59 Resp 25 H 09/24/23 14:00 BP 77/46 L 09/24/23 14:59 Pulse Ox 91 L 09/24/23 14:00 O2 Del Method Room Air 09/24/23 14:00 BMI result Body Mass Index 23.9 Const: General: no acute distress, alert and awake Eyes: Sclerae: sclerae normal EOM: EOMs intact bilaterally Neck: Neck: Yes no lymphadenopathy, Yes trachea midline and Yes supple Resp: Effort & Inspection: normal respiratory effort and no respiratory distress Auscultation: crackles ( Bibasilar) Cardio: Rate: tachycardic Rhythm: regular rhythm Heart sounds: no gallops, no murmurs and no rubs GI: Palpation (GI): Soft to palpation and Other GI palpation findings present ( Nontender) Auscultation: normal bowel sounds Extrem: General: No clubbing, No cyanosis and Yes edema ( trace bilateral) Objective Data Labs 09/24/23 09:07 09/24/23 09:07 Labs: Laboratory Results - last 24 hr 09/23/23 09/23/23 09/24/23 16:25 19:59 05:12 WBC 0.2 L* RBC 3.37 L Hgb 9.9 L Hct 30.2 L MCV 89.6 MCH 29.4 MCHC 32.8 RDW 16.4 H Plt Count 27 L D MPV 12.8 H Immature Gran % (Auto) Cancelled Neut % (Auto) Cancelled Lymph % (Auto) Cancelled [place] % (Auto) Cancelled Eos % (Auto) Cancelled Baso % (Auto) Cancelled Lymph # (Auto) Cancelled [place] # (Auto) Cancelled Eos # (Auto) Cancelled Baso # (Auto) Cancelled Abs Immat Gran (auto) Cancelled Absolute Neuts (auto) Cancelled Absolute Nucleated RBC 0.000 Nucleated RBC % (auto) 0.0 Neutrophils % (Manual) 4 L Band Neutrophils % 0 L Lymphocytes % (Manual) 80 H Monocytes % (Manual) 8 Eosinophils % (Manual) 8 H Abs Neuts (Manual) Not Reportable Lymphocytes # (Manual) 0.2 L Smudge Cells PRESENT Platelet Estimate DECREASED Large Platelets PRESENT Plt Morphology Comment NOTED RBC Morphology NOTED Macrocytosis 1+ (5-14) Tear Drop Cells 1+ (0-2) Ovalocytes 1+ (5-14) [place] Cells 2+ (3-5) Schistocytes 1+ (0-2) Smear Path Review SEE NOTE Sodium 135 Potassium 3.6 Chloride 108 Carbon Dioxide 17 L Anion Gap 14 BUN 26 H Creatinine 1.25 Estim Creat Clear Calc 48.9 Estimated GFR 57 POC Glucose 187 H 147 H Random Glucose 213 H Lactic Acid 3.8 H* Lactic Acid F/U @ 2Hr Lactic Acid F/U @ 4Hr Calcium 9.6 Total Bilirubin 1.1 H AST 20 ALT 21 Alkaline Phosphatase 96 Ammonia Troponin I High Sens Total Protein 5.9 L Albumin 2.7 L Hold Yellow Top 09/24/23 09/24/23 09/24/23 07:10 08:50 09:07 WBC 0.3 L* RBC 3.18 L Hgb 9.5 L Hct 28.9 L MCV 90.9 MCH 29.9 MCHC 32.9 RDW 16.5 H Plt Count 24 L MPV 13.0 H Immature Gran % (Auto) Neut % (Auto) Lymph % (Auto) [place] % (Auto) Eos % (Auto) Baso % (Auto) Lymph # (Auto) [place] # (Auto) Eos # (Auto) Baso # (Auto) Abs Immat Gran (auto) Absolute Neuts (auto) Absolute Nucleated RBC 0.000 Nucleated RBC % (auto) 0.0 Neutrophils % (Manual) Band Neutrophils % Lymphocytes % (Manual) Monocytes % (Manual) Eosinophils % (Manual) Abs Neuts (Manual) Lymphocytes # (Manual) Smudge Cells Platelet Estimate Large Platelets Plt Morphology Comment RBC Morphology Macrocytosis Tear Drop Cells Ovalocytes [place] Cells Schistocytes Smear Path Review Sodium 137 Potassium 3.3 Chloride 111 H Carbon Dioxide 18 L Anion Gap 11 L BUN 28 H Creatinine 1.32 Estim Creat Clear Calc 46.3 Estimated GFR 53 POC Glucose 153 H 152 H Random Glucose 154 H Lactic Acid Lactic Acid F/U @ 2Hr 3.7 H* Lactic Acid F/U @ 4Hr Calcium 9.1 Total Bilirubin AST ALT Alkaline Phosphatase Ammonia Troponin I High Sens Total Protein Albumin Hold Yellow Top See Note 09/24/23 09/24/23 09/24/23 11:19 11:24 12:32 WBC RBC Hgb Hct MCV MCH MCHC RDW Plt Count MPV Immature Gran % (Auto) Neut % (Auto) Lymph % (Auto) [place] % (Auto) Eos % (Auto) Baso % (Auto) Lymph # (Auto) [place] # (Auto) Eos # (Auto) Baso # (Auto) Abs Immat Gran (auto) Absolute Neuts (auto) Absolute Nucleated RBC Nucleated RBC % (auto) Neutrophils % (Manual) Band Neutrophils % Lymphocytes % (Manual) Monocytes % (Manual) Eosinophils % (Manual) Abs Neuts (Manual) Lymphocytes # (Manual) Smudge Cells Platelet Estimate Large Platelets Plt Morphology Comment RBC Morphology Macrocytosis Tear Drop Cells Ovalocytes [place]ori Cells Schistocytes Smear Path Review Sodium Potassium Chloride Carbon Dioxide Anion Gap BUN Creatinine Estim Creat Clear Calc Estimated GFR POC Glucose 144 H Random Glucose Lactic Acid Lactic Acid F/U @ 2Hr Lactic Acid F/U @ 4Hr 4.9 H* Calcium Total Bilirubin AST ALT Alkaline Phosphatase Ammonia 55 Troponin I High Sens 176.4 H* D Total Protein Albumin Hold Yellow Top Progress Note: A&P Assessment and plan (1) Neutropenia: Status: Acute (2) Cytopenia: Status: Acute (3) Shock: Status: Acute (4) Squamous cell carcinoma of lung: Status: Acute (5) COPD (chronic obstructive pulmonary disease): Status: Acute (6) Alcoholic cirrhosis: Status: Acute (7) Metabolic encephalopathy: Status: Acute Plan Assessment: 73-year-old gentleman with underlying lung cancer on chemotherapy, alcoholic cirrhosis, COPD admitted with metabolic encephalopathy with hospital course complicated by septic shock with poorly cytopenia and done metabolic acidosis Plan: Neuro: metabolic encephalopathy secondary to underlying liver cirrhosis, also likely a component of septic encephalopathy. Continue lactulose. Cardiac: Likely septic shock, continue to titrate of pressors as tolerated. 2D echo is pending. Pulmonary: Underlying COPD and lung cancer on chemotherapy. Renal: acute renal failure, likely secondary to shock. Non oliguric. Continue to monitor renal indices and urine output. Endo: No acute issues. GI: No acute issues. Underlying alcoholic cirrhosis. ID: Likely septic shock, empirically covered with broad-spectrum antibiotics. Cultures are pending. Heme/Onc: Poorly cytopenia and neutropenia after recent chemotherapy. Neutropenic precautions. Psych: No acute issues. Miscellaneous: No acute issues. Prophylaxis: Pneumatic compression Diet: nothing by mouth Critical care time spent: 90 minutes excluding separately billable procedures Quality Stroke Does the patient have a stroke diagnosis?: No VTE Prior VTE?: No VTE Risk Level:: Medical - moderate - high VTE Device Contraindication: N/A - Device Ordered VTE Drug Contraindication: Treatment Not Indicated
[2023-09-24 16:00] LABS: MANUAL DIFF FLAG NO
[2023-09-24 16:05] LABS: Eosinophils Percent Auto 2.5 % (0-4); Hemoglobin 8.3 g/dl (14.0-18.0)
[2023-09-24 16:05] LABS: VBG Base Excess -16.8 mmol/L; VBG HCO3 9 mmol/L (22-26); VBG pCO2 23 mmHg; VBG pO2 55 mmHg
[2023-09-24 16:07] LABS: Hematocrit 26.2 % (42.0-52.0); Lymphocytes Absolute Auto 0.3 X10*3/uL (1.2-4.9); Mean Corpuscular HGB Conc 31.7 g/dl (31.0-36.0); Mean Corpuscular Hemoglobin 29.6 pg (27.0-33.0); Mean Corpuscular Volume 93.6 fL (80.0-98.0); Mean Platelet Volume 12.2 fL (9.4-12.4); Monocytes Percent Auto 7.5 % (2-11); PLT CLUMP 1; Red Cell Distribution Width 16.9 % (11.0-16.0); SCAN SMEAR FLAG 1
[2023-09-24 16:13] LABS: Venous Blood Gas Refer to POC result
[2023-09-24 16:20] LABS: Anion Gap 18 (12-20); Blood Urea Nitrogen 25 mg/dL (9-16); Calcium 8.2 mg/dL (8.4-10.2); Carbon Dioxide 11 mmol/L (22-29); Chloride 113 mmol/L (96-108); Creatinine Clr Calc Pharmacy 52.7; Estimated Glomerular Filt Rate > 60; Glucose Random 148 mg/dL (60-115); Potassium 3.6 mmol/L (3.3-5.1); Sodium 138 mmol/L (135-145)
[2023-09-24 16:23] LABS: Platelet Count 46 X10*3/uL (160-400); White Blood Count 0.4 X10*3/uL (4.8-10.8)
[2023-09-24] MEDS: Sodium Bicarbonate 8.4% 50 MEQ/50 ML VIAL IVPUSH ×4 (16:34→20:13)
[2023-09-24] MEDS: Digoxin 0.5 MG/2 ML AMPUL 0.25 MG IVPUSH ×2 (16:35→18:14)
[2023-09-24 16:50] LABS: Glucose, Whole Blood 137 mg/dL (60-115)
[2023-09-24] MEDS: Phenylephrine HCL 100 MG in 0.9 % Sodium Chloride 250 ML 5.24 MG IVCONT (17:26)
[2023-09-24] MEDS: Calcium Gluconate/NaCl,Iso-Osm 2 GM/100 ML PLAST..BAG IV (17:28)
[2023-09-24] MEDS: Potassium Phosphate/NS 15 MMOL/250 ML PLAST..BAG 62.5 MMOL IV ×2 (17:38→21:41)
[2023-09-24 17:42] LABS: Appearance Urine Turbid; Color Urine Yellow; Glucose Urine UA Negative (Negative); Leukocyte Esterase Urine Negative (Negative); Nitrite Urine Negative (Negative); PH 6.5 (5.0-9.0); Specific Gravity - Urine 1.015 (1.005-1.025); UMIC TRIGGER UA YES; Urine Blood Large (3+) (Negative); Urine Ketones Negative (Negative); Urine Protein 100 (2+) mg/dL (Neg-Trace)
[2023-09-24 18:03] LABS: Bacteria Urine None Seen (None Seen); RBC Urine >20 /HPF (0-2); WBC Urine 0-5 /HPF (0-5)
[2023-09-24 18:13] LABS: CDiff Gene PCR NEGATIVE (Negative)
--- NOTE | 2023-09-24 18:24 | PC.NURSE ---
Patient seen this am on medical floor as a rapid response for hypotension, [facility] Pritchett from ICU consulted. Total of 4 liters Nacl bolus and 2 bottles of Albumin given per report from previous nurse. Patient continued to be hypotensive SBP 70's, accepted transfer to the ICU. Patient admitted to unit, SBP 70's. Peripheral IV access obtained and Phenylepherine drip started, titrated up to max dose. Dr Pritchett notified of Phenylepherine needs and Levophed drip started in addition. Patient continued to be hypotensive, central line placed at bedside without complications. Levophed and Phenylepherine changed to quad dose, continuing to increase throughout shift, see titration in EMAR. Calcium, potassium, and phosphorus replaced as ordered. CXR completed after central line insertion. Raines inserted per Dr Pritchett. Echo ordered will be on hold until tomorrow. ST eval on hold as well do to instability. Critical trop 176.4 Dr Pritchett aware. WBC 0.4, on Neutropenic precautions. Respiratory panel, urine, and stool sent to lab. Blood cultures growing gram negative rods, on IV Zosyn and IV Vanco. 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 IV digoxin given x 2. VBG critical PH 7.2, sodium bicarb given as ordered. CT brain pending when stable. Report given to night RN.
[2023-09-24 20:01] LABS: ABG HCO3 7 mmol/L (22-26); ABG pCO2 24 mmHg (32-45); ABG pH 7.07 (7.35-7.45); ABG pO2 81 mmHg (83-108)
[2023-09-24] MEDS: EPINEPHrine 1 MG/10 ML SYRINGE IVPUSH ×3 (20:08→20:23)
[2023-09-24] MEDS: propofoL 1,000 MG/100 ML VIAL 8.06 MG IVCONT (20:21)
[2023-09-24 20:23] LABS: ABG Refer to POC result
[2023-09-24] MEDS: Vasopressin 20 UNIT/100 ML INFUS..BTL 12 UNIT IVCONT (20:26)
--- NOTE | 2023-09-24 20:43 | PC.NURSE ---
PT IN RESP DISTRESS ON HIGH FLOW O2 50L AND 50%. ABG'S DRAWN BY RESP THERAPY AND REVIEWED BY PROVIDER LOUISE LOPEZ NP. DECISION MADE TO INTUBATE PT. PT MOVED TO A LARGER ROOM, [facility]ON [facility]RIVAL TO [facility] BICARB 50 MEQ IVP GIVEN AT 2006 FOLLOWED BY EPINEPHRINE 1 AMP IVP AT 2007. PULSE PRESENT. RHYTHM SVT 170'S. AT 2012 2ND AMP OF BICARB GIVEN IVP AND 2ND AMP OF EPI 1MG IVP. PT GIVEN PROPOFOL 70 MG IN INCREMENTAL DOSES OF 30 MG, THEN 20 MG THEN 20 MG IVP. PT INTUBATED WITH 7.5 ETT AT 25 CM AT THE LIP. BP DROPPED AFTER SEDATION AND ANIA GTT INCREASED TO 5 MCG THEN 6 MCG/KG/MIN. VASOPRESSIN ADDED AT 0.04 UNITS/MIN. THIRD DOSE OF EPINEPHRINE GIVEN HEART RATE DROPPING BELOW 100. BP UP TO 93/51 AT PRESENT. PCXR DONE AND READ BY PROVIDER. ETT PULLED BACK 23 CM AT THE LIP BY RESP THERAPIST UPON ORDER BY PROVIDER.
[2023-09-24] MEDS: propofoL 200 MG/20 ML VIAL 70 MG IVPUSH (20:53)
[2023-09-24 21:15] LABS: Glucose, Whole Blood 70 mg/dL (60-115)
--- NOTE | 2023-09-24 21:20 | W.PM.CCHP ---
Procedures Date of Service Date of Service: 09/24/23 Intubation Intubation Comments: Patient ABG 7.07/82/7, Becoming more hypoxic on high flow, worsening mentation. Required Emergent intubation. Patient intubated with 7.5 cuffed ET tube under glide scope guidance with visualization of vocal cords, without immediate complications. ET w tube position verified with Chest XRAY. Consent for Procedure: Emergent-no informed consent obtained Time out performed: Yes Sedative: propofol Mg given: 70 Laryngoscope: fiber optic video scope ET tube size: 7.5 ET tube uncuffed: No Tube secured depth (cm): 25 Tube secured location: lips Tube placement confirmation: visualized tube passing through cords, equal breath sounds bilaterally, no breath sounds over epigastrium and confirmation by capnometry Patient tolerated procedure: well and no complications Intubation complications: none
--- NOTE | 2023-09-24 21:25 | PM.EVENT ---
Documented by User: Talisha Rob NP 09/25/23 01:07 Event Note Date of Service: 09/25/23 Event Note: Patient's clinical status worsening, maxed out on vasopressors, requiring emergent intubation. Goals of care conversation held with daughter Rosemary and family members. Daughter and family in agreement to change code status to DNR. Time Spent With Patient Time: Total time managing care of this patient today ____ minutes. Documented by User: Dante Pritchett MD 09/25/23 09:20 Event Note Date of Service: 09/25/23
[2023-09-24] MEDS: Sodium Bicarbonate 8.4% 50 MEQ/50 ML VIAL 100 MEQ IVPUSH (21:38)
[2023-09-24] MEDS: Chlorhexidine Gluc Oral Rinse 15 ML MOUTHWASH BUCCAL (21:39)
[2023-09-24 21:57] LABS: Anion Gap 29 (12-20); Blood Urea Nitrogen 27 mg/dL (9-16); Calcium 8.8 mg/dL (8.4-10.2); Carbon Dioxide 9 mmol/L (22-29); Chloride 115 mmol/L (96-108); Estimated Glomerular Filt Rate 49; Glucose Random 68 mg/dL (60-115); Magnesium 1.9 mg/dL (1.6-2.6); Phosphorus 9.6 mg/dL (2.7-4.5); Potassium 4.2 mmol/L (3.3-5.1); Sodium 149 mmol/L (135-145)
[2023-09-24 21:58] LABS: Venous Blood Gas Refer to POC result
[2023-09-24 21:58] LABS: VBG Base Excess -23.1 mmol/L; VBG HCO3 7 mmol/L (22-26); VBG pCO2 29 mmHg; VBG pH 6.96 (7.32-7.43); VBG pO2 113 mmHg
--- NOTE | 2023-09-24 21:58 | HE.PHANOTE ---
RE: levophed Nurse called earlier pointing out that both strengths of levophed were ordered, lower strength was for documentation purposes to be discontinued after being documented on. Patient currently on 4x norepi concentrated drip
[2023-09-24] MEDS: Sodium Bicarbonate 8.4% 150 MEQ in Dextrose 5 % 850 ML 100 MEQ IV (22:05)
[2023-09-24] MEDS: Phenylephrine HCL 100 MG in 0.9 % Sodium Chloride 250 ML 62.9 MG IVCONT (22:27)
[2023-09-25] VITALS (15 sets, daily range): BP systolic 0–87; BP diastolic 0–58; PULSE 0–131; RESP 13–24; TEMP 35–37; O2SAT 80–99
[2023-09-25] MEDS: Piperacillin Sodium/Tazobactam 3.375 GM in 0.9 % Sodium Chloride 50 ML IV (00:16)
[2023-09-25] MEDS: 0.9 % Sodium Chloride Flush 3 ML SYRINGE IVFLUSH (00:43)
[2023-09-25] MEDS: Sodium Bicarbonate 8.4% 50 MEQ/50 ML VIAL 100 MEQ IVPUSH (00:57)
[2023-09-25] MEDS: Calcium Gluconate/NaCl,Iso-Osm 2 GM/100 ML PLAST..BAG IV (00:57)
--- NOTE | 2023-09-25 01:08 | HO.HCP_ITS ---
Health Care Proxy Invocation Health Care Proxy Health Care Proxy Invocation Form: Patient's clinical status worsening, patient obtunded, maxed out on vasopressors, requiring emergent intubation. Goals of care conversation held with daughter/HCP Rosemary and family members. Daughter and family in agreement to change code status to DNR. Declaration: I, ____Talisha Greeneflacachace , on the date cited below, have determined that, ____Yuniel Monson , lacks the capacity to make or communicate, informed health care decision. This determination is made in accordance with accepted standards of medical judgment and pursuant to [place] 201[place], the [facility] Care Proxy Law. The cause, nature, extent and probable duration of the patient's inapacity are described below: Cause: Metabolic encephalopathy Nature: Extent: Probable Duration of Patient's Incapacity:
[2023-09-25] MEDS: Phenylephrine HCL 100 MG in 0.9 % Sodium Chloride 250 ML 62.9 MG IVCONT (02:15)
--- NOTE | 2023-09-25 02:23 | PC.NURSE ---
Addendum entered by Deborah Berger RN 09/25/23 06:17: 09/25/2023 0615; Patient maxed on vasopressors throughout the shift. Christine Rob DNP aware of blood pressures. Time of 0530, [facility] contacted and patient was declined, referral #[id number]. Original Note: 09/24/2023 1905; Levophed 32mg in NS infusing at 1mcg/kg/min through the [facility] when this RN assumed care.
[2023-09-25] MEDS: Vasopressin 20 UNIT/100 ML INFUS..BTL 12 UNIT IVCONT (02:50)
[2023-09-25] MEDS: Albumin Human 25 % 100 ML IV (03:49)
[2023-09-25] MEDS: propofoL 1,000 MG/100 ML VIAL 8.06 MG IVCONT (04:39)
[2023-09-25 04:47] LABS: VBG Base Excess -19.9 mmol/L; VBG HCO3 8 mmol/L (22-26); VBG pCO2 29 mmHg; VBG pH 7.06 (7.32-7.43); VBG pO2 69 mmHg
[2023-09-25 04:54] LABS: Hematocrit 27.4 % (42.0-52.0); Imm Gran Abs Auto 0.01 X10*3/uL (0.00-0.03); Mean Corpuscular HGB Conc 29.2 g/dl (31.0-36.0); SCAN SMEAR FLAG 1
[2023-09-25 04:56] LABS: Lymphocytes Absolute Auto 0.2 X10*3/uL (1.2-4.9); MANUAL DIFF FLAG SCAN; Mean Corpuscular Hemoglobin 29.7 pg (27.0-33.0); Mean Corpuscular Volume 101.9 fL (80.0-98.0); Mean Platelet Volume 13.1 fL (9.4-12.4); Red Blood Count 2.69 X10*6/uL (4.60-5.80); Red Cell Distribution Width 17.6 % (11.0-16.0)
[2023-09-25 05:03] LABS: PLT ABN DIST 1; Platelet Count 21 X10*3/uL (160-400)
[2023-09-25 05:07] LABS: White Blood Count 0.3 X10*3/uL (4.8-10.8)
[2023-09-25 05:13] LABS: Alanine Aminotransferase 404 U/L (0-40); Albumin Level 3.1 g/dL (3.5-5.0); Alkaline Phosphatase 51 U/L (39-117); Anion Gap 35 (12-20); Aspartate Amino Transferase 794 U/L (5-37); Bilirubin Total 2.3 mg/dL (0.0-1.0); Blood Urea Nitrogen 28 mg/dL (9-16); Calcium 8.5 mg/dL (8.4-10.2); Carbon Dioxide 9 mmol/L (22-29); Chloride 111 mmol/L (96-108); Creatinine Clr Calc Pharmacy 33.2; Estimated Glomerular Filt Rate 36; Glucose Random 26 mg/dL (60-115); Phosphorus 9.8 mg/dL (2.7-4.5); Potassium 4.2 mmol/L (3.3-5.1); Sodium 151 mmol/L (135-145); Total Protein 5.5 g/dL (6.5-8.0)
[2023-09-25] MEDS: Dextrose 50 % 25 GM/50 ML SYRINGE IVPUSH (05:15)
--- NOTE | 2023-09-25 05:38 | PM.EVENT ---
Documented by User: Talisha Rob NP 09/25/23 05:42 Event Note Date of Service: 09/25/23 Event Note: Deterioration of patient's clinical status over night, patient requiring max support with pressors and profound acidemia.? Code status was changed to DNR. ?At? 0530 patient bradycardic,? and eventually asystole.? On my assessment, Pupils fixed and dilated.? No corneal or gag reflex. Absent heart sounds, absent peripheral pulses.? Time of 05.? Daughter Rosemary, contacted over the phone and notified of TOD. Not a medical exam candidate.? Organ donation was notified by nursing.? Attending Dr Pritchett notified? Time Spent With Patient Time: Total time managing care of this patient today ____ minutes. Documented by User: Dante Pritchett MD 09/25/23 09:20 Event Note Date of Service: 09/25/23
[2023-09-25 06:45] LABS: Venous Blood Gas Refer to POC result
[2023-09-25 06:47] LABS: SLIDE REVIEW VERIFIED
--- NOTE | 2023-09-25 08:17 | HE.PHANOTE ---
RE: AYAKAO On 09/25/23, even though sCr is rising to 1.84 and CrCl is down to 33.2, pt is being treated for sepsis so will continue dose of 1000mg q24h with predicted AUC of 572 and trough of 18.6. Will re-evaluate after random trough comes back on 09/26@1000.
--- NOTE | 2023-09-25 09:40 | PM.DDS ---
Discharge Sum: Prov Provider Primary care physician: Vince Cosme MD Consults: 09/23/23 13:39 Consult to General Surgery Routine Consulting Provider: [facility] General Surgeons Reason for consultation: Abdominal pain, bowel thickening Has provider been notified: No 09/24/23 08:35 Consult to Infectious Diseases Routine Consulting Provider: [facility] Infectious Disease Reason for consultation: fuo/hypotension/pancytopenia Has provider been notified: No 09/24/23 08:56 Consult to Critical Care Routine Consulting Provider: Dante Pritchett Reason for consultation: Level of care Has provider been notified: Yes 09/24/23 11:54 Consult to Cardiology Routine Consulting Provider: [facility] Cardiovascular Services Reason for consultation: abnormal ekg/chest pain nonspecific Has provider been notified: No Discharge Sum: Diag Contributing Factors (1) Septic shock: (2) Gram-negative bacteremia: (3) Neutropenia: (4) Cytopenia: (5) Chemotherapy induced neutropenia: (6) Squamous cell carcinoma of lung: (7) COPD (chronic obstructive pulmonary disease): (8) Alcoholic cirrhosis: (9) Metabolic encephalopathy: (10) Acute respiratory failure: Discharge Sum: Summary Date and Time Date of admission: 09/22/23 00:33 Date of : 09/25/23 Time of : 05:30 Summary Details: 73-year-old gentleman with underlying squamous cell carcinoma of the lung on chemotherapy, last approximately 1 week prior to admission, also alcoholic cirrhosis, diabetes mellitus admitted on 09/22/2023 for encephalopathy. Patient was started on lactulose for hyperammonemia with some improvement in his mental status, however further hospital course complicated by development of polycytopenia with neutropenia and septic shock with poor response to IV fluids and colloids requiring initiation of pressor support and transfer to intensive care unit. In the intensive care unit patient with rapidly increasing pressor support requirements secondary to fulminant septic shock secondary to Gram-negative bacteremia with development of refractory metabolic acidosis, septic encephalopathy, acute respiratory failure requiring intubation and ventilatory support. Patient with rapid progressive decline in clinical status requiring maximal pressor and adjunctive support. Discussion of extremity poor prognosis for meaningful recovery held with patient's family/healthcare proxy and decision was reached to switch code status to do not resuscitate. Patient with further decline in clinical status with refractory shock and metabolic acidosis with ensuing asystole at 05:30 a.m. despite maximum support. Family notified. Additional Data Attending physician: Dante Pritchett MD
[2023-09-25 10:27] LABS: Adenovirus PCR Not Detected (Not Detect.); Bordetella parapertussis PCR Not Detected (Not Detect.); Bordetella pertussis PCR Not Detected (Not Detect.); Chlamydia pneumoniae PCR Not Detected (Not Detect.); Coronavirus 229E PCR Not Detected (Not Detect.); Coronavirus HKU1 PCR Not Detected (Not Detect.); Coronavirus NL63 PCR Not Detected (Not Detect.); Coronavirus OC43 PCR Not Detected (Not Detect.); Human metapneumovirus PCR Not Detected (Not Detect.); Influenza A PCR Not Detected (Not Detect.); Influenza B PCR Not Detected (Not Detect.); Mycoplasma pneumoniae PCR Not Detected (Not Detect.); Parainfluenza 1 PCR Not Detected (Not Detect.); Parainfluenza 2 PCR Not Detected (Not Detect.); Parainfluenza 3 PCR Not Detected (Not Detect.); Parainfluenza 4 PCR Not Detected (Not Detect.); RSV PCR Not Detected (Not Detect.); Rhino/Enterovirus PCR Not Detected (Not Detect.)
[2023-09-25 11:07] LABS: Adenovirus F 40/41 Not Detected (Not Detect.); Astrovirus Not Detected (Not Detect.); Campylobacter Not Detected (Not Detect.); Cryptosporidium Not Detected (Not Detect.); Cyclospora cayetanensis Not Detected (Not Detect.); E. coli EAEC Not Detected (Not Detect.); E. coli EPEC Not Detected (Not Detect.); E. coli ETEC Not Detected (Not Detect.); E. coli STEC Not Detected (Not Detect.); Entamoeba histolytica Not Detected (Not Detect.); Giardia lamblia Not Detected (Not Detect.); Norovirus GI/GII Not Detected (Not Detect.); Plesiomonas shigelloides Not Detected (Not Detect.); Rotavirus A Not Detected (Not Detect.); Salmonella Not Detected (Not Detect.); Sapovirus Not Detected (Not Detect.); Shigella sp./EIEC Not Detected (Not Detect.); Vibrio Not Detected (Not Detect.); Vibrio Cholerae Not Detected (Not Detect.); Yersinia enterocolitica Not Detected (Not Detect.)
[2023-09-25 12:15] LABS: SARS-CoV-2 PCR Not Detected (Not Detect.)
== END 2023-09-25 05:30 | disposition expired | DRG 441 ==
LOC: HO.ED 20:41 → HO.EDOVER 09-22 00:37 → HO.S3 09-22 01:39 → HO.IMC 09-24 10:04 → HO.ICU 09-24 12:54
PROVIDERS: Internal Medicine; Registered Nurse Community Health; Admitting Provider Student in an Organized Health Care Education/Training Program; Emergency Provider Student in an Organized Health Care Education/Training Program; PCP Internal Medicine; Visit Provider Internal Medicine Pulmonary Disease
DX: K76.82 Hepatic encephalopathy (principal); A41.50 Gram-negative sepsis, unspecified; D61.810 Antineoplastic chemotherapy induced pancytopenia; G93.41 Metabolic encephalopathy; R65.21 Severe sepsis with septic shock; C34.11 Malignant neoplasm of upper lobe, right bronchus or lung; K70.30 Alcoholic cirrhosis of liver without ascites; E87.6 Hypokalemia; E11.65 Type 2 diabetes mellitus with hyperglycemia; D70.1 Agranulocytosis secondary to cancer chemotherapy; R50.81 Fever presenting with conditions classified elsewhere; T45.1X5A Adverse effect of antineoplastic and immunosuppressive drugs, initial encounter; D69.59 Other secondary thrombocytopenia; J44.9 Chronic obstructive pulmonary disease, unspecified; F17.210 Nicotine dependence, cigarettes, uncomplicated; E11.51 Type 2 diabetes mellitus with diabetic peripheral angiopathy without gangrene; E78.2 Mixed hyperlipidemia; Z66 Do not resuscitate; Z71.6 Tobacco abuse counseling; Z91.041 Radiographic dye allergy status; Z20.822 Contact with and (suspected) exposure to COVID-19; Z90.2 Acquired absence of lung [part of]; Z79.82 Long term (current) use of aspirin; Z79.84 Long term (current) use of oral hypoglycemic drugs; Z79.899 Other long term (current) drug therapy
CPT/HCPCS: 36415; 36600; 71045; 71275; 74176; 80048; 80053; 81001; 82140; 82803; 82947; 83605; 83735; 84100; 84484; 85007; 85025; 85027; 87040; 87077; 87086; 87186; 87205; 87493; 87507; 87633; 92950; 93005; 94002; 94003; 99285; C1758; C9113; J0171; J0613; J1160; J1200; J1630; J2250; J2270; J2371; J2543; J2598; J2704; J3371; J3480; P9047

== ENCOUNTER → 2023-09-22 00:33 | Outpatient (BNV) | payer MEDICARE, MEDICAID, SELFPAY | PROVIDERS: Admitting Provider Student in an Organized Health Care Education/Training Program; Emergency Provider Student in an Organized Health Care Education/Training Program; PCP Internal Medicine; Visit Provider Student in an Organized Health Care Education/Training Program | DX: A41.9 Sepsis, unspecified organism (principal) | CPT/HCPCS: 99222; 99232; 99499 ==

== ENCOUNTER → 2023-09-22 00:33 | Outpatient (BNV) | payer MEDICARE, MEDICAID, SELFPAY | PROVIDERS: Admitting Provider Student in an Organized Health Care Education/Training Program; Emergency Provider Student in an Organized Health Care Education/Training Program; PCP Internal Medicine; Visit Provider Registered Nurse Community Health | DX: A41.9 Sepsis, unspecified organism (principal) | CPT/HCPCS: 99499 ==

== ENCOUNTER → 2023-09-22 00:33 | Outpatient (BNV) | payer MEDICARE, MEDICAID, SELFPAY | PROVIDERS: Admitting Provider Student in an Organized Health Care Education/Training Program; Emergency Provider Student in an Organized Health Care Education/Training Program; PCP Internal Medicine; Visit Provider Surgery | DX: R10.9 Unspecified abdominal pain (principal) | CPT/HCPCS: 99222; 99232 ==

== ENCOUNTER → 2023-09-22 00:33 | Outpatient (BNV) | payer MEDICARE, MEDICAID, SELFPAY | PROVIDERS: Admitting Provider Student in an Organized Health Care Education/Training Program; Emergency Provider Student in an Organized Health Care Education/Training Program; PCP Internal Medicine; Visit Provider Internal Medicine Pulmonary Disease | DX: A41.9 Sepsis, unspecified organism (principal); R65.21 Severe sepsis with septic shock; R78.81 Bacteremia; D70.9 Neutropenia, unspecified; D75.9 Disease of blood and blood-forming organs, unspecified; D70.1 Agranulocytosis secondary to cancer chemotherapy; T45.1X5A Adverse effect of antineoplastic and immunosuppressive drugs, initial encounter; C34.90 Malignant neoplasm of unspecified part of unspecified bronchus or lung; J41.0 Simple chronic bronchitis; K70.30 Alcoholic cirrhosis of liver without ascites; G93.41 Metabolic encephalopathy; J96.00 Acute respiratory failure, unspecified whether with hypoxia or hypercapnia | CPT/HCPCS: 31500; 36556; 99239; 99291 ==